=== PATIENT | female | born 1980 | race Caucasian/White ===

== ENCOUNTER → 2021-03-03 11:16 | Outpatient (CLI) | payer OTHER, MEDICAID, SELFPAY ==
[2021-03-03 07:49] VITALS: BMI 32.9
== END ==
PROVIDERS: PCP Internal Medicine; Referring Provider Physician Assistant; Visit Provider Physician Assistant
DX: J02.9 Acute pharyngitis, unspecified (principal)
CPT/HCPCS: 87070

== ENCOUNTER → 2021-03-28 13:48 | Outpatient (CLI) | payer OTHER, SELFPAY ==
[2021-03-28 13:09] VITALS: BMI 34.9
[2021-03-28 14:53] LABS: Free T3 2.3 pg/mL (2.18-3.98); T4 Free Direct 0.88 ng/dL (0.76-1.46); Thyroid Stim Hormone (TSH) 4.87 uIU/mL (0.358-3.74)
[2021-04-01 09:04] LABS: HPV APTIMA, High Risk Negative (Negative)
== END ==
PROVIDERS: PCP Internal Medicine; Referring Provider Obstetrics & Gynecology; Visit Provider Obstetrics & Gynecology
DX: Z12.4 Encounter for screening for malignant neoplasm of cervix (principal); E03.9 Hypothyroidism, unspecified
CPT/HCPCS: 36415; 84439; 84443; 84481; 87624; 88175; G0145

== ENCOUNTER → 2021-04-01 15:23 | Outpatient (CLI) | payer OTHER, SELFPAY ==
[2021-04-01 15:03] VITALS: BMI 34.9
[2021-04-01 16:58] LABS: Absolute Lymphocyte Count 1.77 X10^3/uL (0.83-4.51); Absolute Neutrophil Count 4.5 X10^3/uL (2.0-7.7); Basophil# 0.06 X10^3/uL; Basophil% 0.8 % (0-1); Eosinophil# 0.28 X10^3/uL; Hematocrit 36.4 % (37-47); Lymphocyte # 1.77 X10^3/ul (0.83-4.51); Lymphocyte % 25.1 % (19-41); Mean Corp Hgb Conc 30.2 g/dL (32-36); Mean Corpuscular Hgb 23.5 pg (27.0-32.0); Mean Corpuscular Volume 77.8 fL (81-99); Mean Platelet Vol. 10.8 fl (6.2-12.0); Monocyte# 0.43 X10^3/uL; Monocyte% 6.1 % (0-10); NRBC Flagged by Analyzer 0 % (0-5); Neutrophil % 63.7 % (47-70); Platelet Count 235 K/mm3 (150-450); RBC Distribution Width CV 15.8 % (11.6-14.6); RBC Distribution Width SD 44.6 fl (35.1-43.9); Red Blood Count 4.68 M/mm3 (4.2-5.4); White Blood Count 7.1 K/mm3 (4.4-11.0)
[2021-04-01 17:05] LABS: ALB/GLOB Ratio 0.9 RATIO (0.9-2.4); AST(SGOT) 17 U/L (15-37); Alanine Aminotransfer ALT/SGPT 32 U/L (13-56); Albumin, Serum 3.6 g/dL (3.2-5.0); Alkaline Phosphatase 52 U/L (45-117); Anion Gap 6 (5-15); BUN 10 mg/dL (7-18); BUN/Creat Ratio 12.1 RATIO (10-20); Calcium,Total 8.5 mg/dL (8.5-10.1); Chloride 106 mmol/L (98-107); Cholesterol 200 mg/dL (200); Creatinine, Serum 0.83 mg/dL (0.55-1.02); EST Glomerular Filtration Rate 81 mL/min (>60); Est Glom Filt Rate - Afr Amer 98 mL/min (>60); Globulin 4.1 g/dL (2.2-4.2); Glucose 89 mg/dL (74-106); High Density Lipoprotein 74 mg/dL; Potassium 4.3 mmol/L (3.5-5.1); Protein, Total 7.7 g/dL (6.4-8.2); Sodium Level 138 mmol/L (136-145); Triglycerides 95 mg/dL; Very Low Density Lipoprotein 19 mg/dL (5-40)
[2021-04-05 08:36] LABS: Ferritin 5 ng/mL (8-252); Iron 21 ug/dL (50-170); Iron Binding Capacity,Total 521 ug/dL (250-450)
== END ==
LOC: BIMLAB 15:24
PROVIDERS: PCP Internal Medicine; Referring Provider Internal Medicine; Visit Provider Internal Medicine
DX: I10 Essential (primary) hypertension (principal); D64.9 Anemia, unspecified
CPT/HCPCS: 36415; 80053; 80061; 82728; 83540; 83550; 85025

== ENCOUNTER → 2021-04-08 08:47 | Outpatient (CLI) | payer OTHER, SELFPAY ==
[2021-04-01 15:03] VITALS: BMI 34.9
--- NOTE | 2021-04-08 08:50 | EKG12_ITS ---
Test Reason : HTN Blood Pressure : / mmHG Vent. Rate : 071 BPM Atrial Rate : 071 BPM P-R Int : 152 ms QRS Dur : 094 ms QT Int : 430 ms P-R-T Axes : 043 -20 040 degrees QTc Int : 467 ms Normal sinus rhythm Inferior infarct , age undetermined Abnormal ECG Confirmed by PATSY CLEVELAND, VENANCIO ([id number]), fan mail editor ANDIE KENDALL ([id number]) on 04/11/2021 12:46:28 PM Referred By: Oliver Junior Confirmed By:VENANCIO GARNER MD
--- NOTE | 2021-04-08 09:00 | US_ITS ---
STUDY: THYROID ULTRASOUND REASON FOR EXAM: Female, 40 years old. Thyroid nodule TECHNIQUE: Ultrasound evaluation of the thyroid was performed with real-time and static aguirre-scale imaging. COMPARISON: None. FINDINGS: RIGHT LOBE: The right lobe of the thyroid gland measures 4.9 cm x 2.3 cm x 1.7 cm. There is a heterogeneous echotexture. There are no demonstrated solid, cystic or complex lesions. LEFT LOBE: The left lobe of the thyroid gland measures 4.8 cm x 1.7 cm x 1.2 cm. There is a heterogeneous echotexture. There are no demonstrated solid, cystic or complex lesions. ISTHMUS: The isthmus measures 3.1 mm. The regional lymph nodes are normal. US/Thyroid IMPRESSION: Heterogeneous appearance of the thyroid gland without a localized nodule. Electronically Signed: Tom Marx MD at 13:35 EDT , Service support ,
== END ==
PROVIDERS: PCP Internal Medicine; Referring Provider Internal Medicine; Visit Provider Internal Medicine
DX: E04.1 Nontoxic single thyroid nodule (principal); I10 Essential (primary) hypertension
CPT/HCPCS: 76536; 93005

== ENCOUNTER → 2021-04-11 16:07 | Outpatient (CLI) | payer OTHER, SELFPAY ==
[2021-03-28 13:09] VITALS: BMI 34.9
[2021-04-01 15:03] VITALS: BMI 34.9
--- NOTE | 2021-04-11 16:09 | BI_ITS ---
MAMMOGRAPHY - BILATERAL SCREENING REASON FOR EXAM: Female, 40 years old. Routine annual screening examination. PERTINENT HISTORY: Aunt with breast cancer. TECHNIQUE: Digital bilateral breast juanpablo (3D mammographic acquisition) in the CC and MLO projections. 2-D mediolateral oblique (MLO) and craniocaudad (CC) views of both breasts were obtained. CAD: Full Field Digital Mammography with Computer Added Detection was performed. COMPARISON: None. Baseline examination. FINDINGS: Breast Composition: There are scattered areas of fibroglandular density. There are no dominant masses or suspicious calcifications. There is a 4.4 mm well-defined nodule with a central fatty hilum in the upper lateral portion of the right breast in keeping with a small lymph node. No other significant abnormalities are identified. BI/SCRN MAMM (CAD)W/JUANPABLO BILAT IMPRESSION: Negative screening mammogram. Yearly followup mammogram recommended. (A) ASSESSMENT CATEGORY: BIRADS Category 2: Benign. A letter regarding these results will be sent to the patient by the facility within 30 days. Approximately 10% of breast cancers are not detected by mammography. A normal mammogram should not delay biopsy of a clinically suspicious abnormality. [id number] Electronically Signed: Tom Marx MD at 8:19 EDT , Service support ,
== END ==
PROVIDERS: PCP Internal Medicine; Referring Provider Obstetrics & Gynecology; Visit Provider Obstetrics & Gynecology
DX: Z12.31 Encounter for screening mammogram for malignant neoplasm of breast (principal)
CPT/HCPCS: 77063; 77067

== ENCOUNTER → 2021-04-14 14:52 | Outpatient (CLI) | payer OTHER, SELFPAY ==
[2021-04-14 14:23] VITALS: BMI 34.9
[2021-04-14 16:47] LABS: Anion Gap 7 (5-15); BUN 12 mg/dL (7-18); BUN/Creat Ratio 12.3 RATIO (10-20); Chloride 99 mmol/L (98-107); Creatinine, Serum 0.98 mg/dL (0.55-1.02); EST Glomerular Filtration Rate 67 mL/min (>60); Est Glom Filt Rate - Afr Amer 81 mL/min (>60); Glucose 83 mg/dL (74-106); Potassium 3.4 mmol/L (3.5-5.1); Sodium Level 138 mmol/L (136-145)
== END ==
PROVIDERS: PCP Internal Medicine; Referring Provider Internal Medicine; Visit Provider Internal Medicine
DX: I10 Essential (primary) hypertension (principal)
CPT/HCPCS: 36415; 80048

== ENCOUNTER → 2021-05-02 09:53 | Outpatient (CLI) | payer OTHER, SELFPAY ==
[2021-04-14 14:23] VITALS: BMI 34.9
[2021-04-28 14:16] VITALS: BMI 34.9
--- NOTE | 2021-05-02 13:44 | STRESSREP ---
Stress Test Report Date: 05-02-2021 Procedure: Exercise tolerance test Indications: Abnormal ECG Consent: Per the patient Procedure: The patient exercised on a Tolu protocol for 10 minutes completing Stage III and 1 minute of Stage IV achieving a peak heart rate of 153 bpm (85% predicted maximal heart rate) with a peak blood pressure 198/98 mmHg and a peak MET capacity of approximately 11 MET's. The baseline ECG demonstrated normal sinus rhythm. The peak exercise ECG demonstrated no obvious ECG changes. There were no cardiac dysrhythmias pretest, during exercise, or recovery. The functional capacity was considered good. The patient had no complaint of chest discomfort during exercise or recovery. The examination was discontinued secondary to dyspnea. Impression: 1. Technically adequate (percent predicted maximal heart rate greater than 85%) exercise tolerance test 2. Peak exercise ECG with no obvious ECG change 3. There were no cardiac dysrhythmias during exercise or recovery This note was generated with [employer] software. It may contain incorrect words, spelling, and punctuation that were not noted in checking the note before signing.
== END ==
PROVIDERS: PCP Internal Medicine; Referring Provider Internal Medicine; Visit Provider Internal Medicine
DX: R94.31 Abnormal electrocardiogram [ECG] [EKG] (principal)
CPT/HCPCS: 93017

== ENCOUNTER → 2021-05-27 13:21 | Outpatient (CLI) | payer OTHER, SELFPAY ==
[2021-05-27 15:23] LABS: Absolute Lymphocyte Count 1.71 X10^3/uL (0.83-4.51); Absolute Neutrophil Count 4.6 X10^3/uL (2.0-7.7); Basophil# 0.06 X10^3/uL; Basophil% 0.9 % (0-1); Eosinophil# 0.15 X10^3/uL; Eosinophils% 2.2 % (0-5); Hematocrit 39.9 % (37-47); Hemoglobin 12.4 g/dL (12.0-15.0); Lymphocyte # 1.71 X10^3/ul (0.83-4.51); Lymphocyte % 24.8 % (19-41); Mean Corp Hgb Conc 31.1 g/dL (32-36); Mean Corpuscular Hgb 25.4 pg (27.0-32.0); Mean Corpuscular Volume 81.6 fL (81-99); Mean Platelet Vol. 11.3 fl (6.2-12.0); Monocyte# 0.34 X10^3/uL; Monocyte% 4.9 % (0-10); NRBC Flagged by Analyzer 0 % (0-5); Neutrophil # 4.61 X10^3/uL (2.7-7.7); Neutrophil % 66.9 % (47-70); Platelet Count 230 K/mm3 (150-450); RBC Distribution Width CV 17.6 % (11.6-14.6); Red Blood Count 4.89 M/mm3 (4.2-5.4); White Blood Count 6.9 K/mm3 (4.4-11.0)
[2021-05-27 15:59] LABS: Anion Gap 7 (5-15); BUN 10 mg/dL (7-18); BUN/Creat Ratio 10.7 RATIO (10-20); Calcium,Total 8.8 mg/dL (8.5-10.1); Chloride 104 mmol/L (98-107); Creatinine, Serum 0.94 mg/dL (0.55-1.02); EST Glomerular Filtration Rate 70 mL/min (>60); Est Glom Filt Rate - Afr Amer 85 mL/min (>60); Glucose 96 mg/dL (74-106); Potassium 3.7 mmol/L (3.5-5.1); Sodium Level 137 mmol/L (136-145)
== END ==
PROVIDERS: PCP Internal Medicine; Referring Provider Internal Medicine; Visit Provider Internal Medicine
DX: D64.9 Anemia, unspecified (principal); I10 Essential (primary) hypertension
CPT/HCPCS: 36415; 80048; 85025

== ENCOUNTER → 2021-07-21 10:43 | Outpatient (CLI) | payer OTHER, SELFPAY ==
--- NOTE | 2021-07-21 11:00 | RAD_ITS ---
STUDY: X-RAY - right KNEE REASON FOR EXAM: Female, 40 years old. PAIN AND SWELLING TECHNIQUE: 4 view(s) of the knee. COMPARISON: None. FINDINGS: Normal visualized distal femur. Normal visualized proximal tibia and fibula. Normal proximal tibiofibular articulation. Normal medial femorotibial compartment. Normal lateral femorotibial compartment. Normal patellofemoral articulation. The soft tissue structures are unremarkable. RAD/Knee 4 or More Views IMPRESSION: Normal x-ray examination of the knee. Electronically Signed: Jeronimo Pickett MD at 15:24 EDT , Service support ,
== END ==
PROVIDERS: PCP Internal Medicine; Referring Provider Physician Assistant; Visit Provider Physician Assistant
DX: M25.561 Pain in right knee (principal); M79.89 Other specified soft tissue disorders
CPT/HCPCS: 73564

== ENCOUNTER → 2022-06-08 | Outpatient (CLI) | payer OTHER, SELFPAY ==
[2022-06-08 12:17] LABS: Absolute Lymphocyte Count 1.79 X10^3/uL (0.83-4.51); Absolute Neutrophil Count 3.8 X10^3/uL (2.0-7.7); Basophil# 0.06 X10^3/uL; Eosinophil# 0.17 X10^3/uL; Eosinophils% 2.8 % (0-5); Hematocrit 42.4 % (37-47); Lymphocyte # 1.79 X10^3/ul (0.83-4.51); Lymphocyte % 29.3 % (19-41); Mean Platelet Vol. 11.8 fl (6.2-12.0); Monocyte% 4.9 % (0-10); NRBC Flagged by Analyzer 0 % (0-5); Neutrophil # 3.77 X10^3/uL (2.7-7.7); Neutrophil % 61.7 % (47-70); Platelet Count 200 K/mm3 (150-450); RBC Distribution Width CV 13.4 % (11.6-14.6); RBC Distribution Width SD 43.2 fl (35.1-43.9); Red Blood Count 4.82 M/mm3 (4.2-5.4); White Blood Count 6.1 K/mm3 (4.4-11.0)
[2022-06-08 12:26] LABS: ALB/GLOB Ratio 0.9 RATIO (0.9-2.4); AST(SGOT) 24 U/L (15-37); Alanine Aminotransfer ALT/SGPT 38 U/L (13-56); Albumin, Serum 3.6 g/dL (3.2-5.0); Alkaline Phosphatase 45 U/L (45-117); Anion Gap 5 (5-15); BUN 15 mg/dL (7-18); BUN/Creat Ratio 15.9 RATIO (10-20); Chloride 102 mmol/L (98-107); Cholesterol 206 mg/dL (200); Creatinine, Serum 0.94 mg/dL (0.55-1.02); EST Glomerular Filtration Rate 69 mL/min (>60); Est Glom Filt Rate - Afr Amer 83 mL/min (>60); Globulin 4.2 g/dL (2.2-4.2); Glucose 88 mg/dL (74-106); High Density Lipoprotein 68 mg/dL; Protein, Total 7.8 g/dL (6.4-8.2); Sodium Level 136 mmol/L (136-145); Triglycerides 96 mg/dL; Very Low Density Lipoprotein 19 mg/dL (5-40)
== END | disposition home or self-care (01) ==
LOC: BIMLAB 08:04
PROVIDERS: PCP Internal Medicine; Referring Provider Internal Medicine; Visit Provider Internal Medicine
DX: I10 Essential (primary) hypertension (principal)
CPT/HCPCS: 36415; 80053; 80061; 85025

== ENCOUNTER → 2022-06-30 | Outpatient (CLI) | payer OTHER, SELFPAY ==
[2022-06-30 12:35] LABS: T4 Free Direct 0.87 ng/dL (0.76-1.46); Thyroid Stim Hormone (TSH) 6.89 uIU/mL (0.358-3.74)
== END | disposition home or self-care (01) ==
LOC: BIMLAB 09:38
PROVIDERS: PCP Internal Medicine; Referring Provider Nurse Practitioner Family; Visit Provider Nurse Practitioner Family
DX: E03.9 Hypothyroidism, unspecified (principal)
CPT/HCPCS: 36415; 84439; 84443

== ENCOUNTER → 2022-09-28 | Outpatient (CLI) | payer OTHER, SELFPAY ==
[2022-09-28 12:46] LABS: Thyroid Stim Hormone (TSH) 4.82 uIU/mL (0.358-3.74)
== END | disposition home or self-care (01) ==
LOC: BIMLAB 09:57
PROVIDERS: PCP Internal Medicine; Referring Provider Nurse Practitioner Family; Visit Provider Nurse Practitioner Family
DX: E03.9 Hypothyroidism, unspecified (principal)
CPT/HCPCS: 36415; 84443

== ENCOUNTER → 2022-11-23 | Outpatient (CLI) | payer OTHER, SELFPAY ==
[2022-11-23 12:32] LABS: Vitamin B12 528 pg/mL (211-911); Vitamin D,25 Hydroxy 20.4 ng/mL
[2022-11-23 13:36] LABS: Follicle Stimulating Hormone 3.2 mIU/mL; Luteinizing Hormone 3.2 mIU/mL
[2022-11-30 23:14] LABS: Estrogen, Total, Serum 285 pg/mL (.)
== END | disposition home or self-care (01) ==
LOC: BIMLAB 09:44
PROVIDERS: PCP Internal Medicine; Referring Provider Nurse Practitioner Family; Visit Provider Nurse Practitioner Family
DX: N92.6 Irregular menstruation, unspecified (principal); E03.9 Hypothyroidism, unspecified; E56.9 Vitamin deficiency, unspecified
CPT/HCPCS: 36415; 82306; 82607; 82672; 83001; 83002; 84443

== ENCOUNTER → 2023-02-27 | Outpatient (CLI) | payer OTHER, SELFPAY ==
[2023-02-27 13:22] LABS: Thyroid Stim Hormone (TSH) 4.74 uIU/mL (0.358-3.74)
== END | disposition home or self-care (01) ==
LOC: BIMLAB 08:32
PROVIDERS: PCP Internal Medicine; Referring Provider Nurse Practitioner Family; Visit Provider Nurse Practitioner Family
DX: E03.9 Hypothyroidism, unspecified (principal)
CPT/HCPCS: 36415; 84443

== ENCOUNTER → 2023-07-26 | Outpatient (CLI) | payer OTHER, SELFPAY ==
[2023-07-31 08:11] LABS: Chlamydia By Nucleic Acid AMP Negative (Negative); Gonococcus By Nucleic Acid AMP Negative (Negative)
== END | disposition home or self-care (01) ==
PROVIDERS: PCP Internal Medicine; Referring Provider Nurse Practitioner Women's Health; Visit Provider Nurse Practitioner Women's Health
DX: Z11.3 Encounter for screening for infections with a predominantly sexual mode of transmission (principal)
CPT/HCPCS: 87491; 87591

== ENCOUNTER → 2023-08-03 | Outpatient (CLI) | payer OTHER, SELFPAY ==
--- NOTE | 2023-08-03 08:33 | BI_ITS ---
MAMMOGRAPHY - BILATERAL SCREENING REASON FOR EXAM: Female, 42 years old. Routine annual screening examination. PERTINENT HISTORY: Aunt with breast cancer. TECHNIQUE: Digital bilateral breast juanpablo (3D mammographic acquisition) in the CC and MLO projections. 2-D mediolateral oblique (MLO) and craniocaudad (CC) views of both breasts were obtained. CAD: Full Field Digital Mammography with Computer Added Detection was performed. COMPARISON: Comparison is made with prior study dated April 11, 2021. FINDINGS: Breast Composition: There are scattered areas of fibroglandular density. There are no dominant masses or suspicious calcifications. Stable 4.4 mm well-defined nodule in the upper lateral aspect of the right breast suggestive of a small lymph node. No other significant abnormalities are identified. There has been no significant change since the prior study. BI/SCRN MAMM (CAD)W/JUANPABLO BILAT IMPRESSION: Stable bilateral screening mammogram. Yearly follow-up mammogram recommended. (A) ASSESSMENT CATEGORY: BIRADS Category 2: Benign. A letter regarding these results will be sent to the patient by the facility within 30 days. Approximately 10% of breast cancers are not detected by mammography. A normal mammogram should not delay biopsy of a clinically suspicious abnormality. [id number] Electronically Signed: Tom Marx MD at 9:40 EDT ,
== END | disposition home or self-care (01) ==
PROVIDERS: PCP Internal Medicine; Referring Provider Nurse Practitioner Women's Health; Visit Provider Nurse Practitioner Women's Health
DX: Z12.31 Encounter for screening mammogram for malignant neoplasm of breast (principal); Z80.3 Family history of malignant neoplasm of breast
CPT/HCPCS: 77063; 77067

== ENCOUNTER → 2023-08-08 | Outpatient (CLI) | payer OTHER, SELFPAY ==
--- NOTE | 2023-08-08 11:25 | RAD_ITS ---
EXAM: XR CHEST, 2 VIEWS CLINICAL INDICATION: cough for more than 3 weeks TECHNIQUE: Frontal and lateral views of the chest. COMPARISON: 02/04/2015 FINDINGS: LUNGS AND PLEURAL SPACES: There is airspace disease in the right middle lobe compatible with pneumonia. No pneumothorax. No effusion. HEART: Unremarkable. Cardiac silhouette not enlarged. MEDIASTINUM: Central airways and mediastinal contour are unremarkable. BONES/JOINTS: Unremarkable. SOFT TISSUES: Unremarkable. RAD/Chest PA and Lateral IMPRESSION: Right middle lobe pneumonia. Electronically Signed: Sung Marti MD at 23:49 EST ,
== END | disposition home or self-care (01) ==
PROVIDERS: PCP Internal Medicine; Referring Provider Internal Medicine; Visit Provider Internal Medicine
DX: R05.8 Other specified cough (principal); J02.9 Acute pharyngitis, unspecified; R51.9 Headache, unspecified; J18.9 Pneumonia, unspecified organism
CPT/HCPCS: 71046; 87633

== ENCOUNTER → 2023-09-10 | Outpatient (CLI) | payer OTHER, SELFPAY ==
[2023-09-10 16:22] LABS: Absolute Lymphocyte Count 1.67 X10^3/uL (0.83-4.51); Absolute Neutrophil Count 4.1 X10^3/uL (2.0-7.7); Basophil# 0.07 X10^3/uL; Basophil% 1.1 % (0-1); Eosinophils% 7.5 % (0-5); Hematocrit 40.9 % (37-47); Lymphocyte # 1.67 X10^3/ul (0.83-4.51); Lymphocyte % 25.1 % (19-41); Mean Corp Hgb Conc 34.2 g/dL (32-36); Mean Corpuscular Hgb 30.6 pg (27.0-32.0); Mean Corpuscular Volume 89.5 fL (81-99); Mean Platelet Vol. 10.7 fl (6.2-12.0); Monocyte# 0.27 X10^3/uL; Monocyte% 4.1 % (0-10); NRBC Flagged by Analyzer 0 % (0-5); Neutrophil # 4.13 X10^3/uL (2.7-7.7); Platelet Count 232 K/mm3 (150-450); RBC Distribution Width CV 12.2 % (11.6-14.6); RBC Distribution Width SD 39.8 fl (35.1-43.9); Red Blood Count 4.57 M/mm3 (4.2-5.4); White Blood Count 6.7 K/mm3 (4.4-11.0)
[2023-09-10 17:15] LABS: ALB/GLOB Ratio 0.9 RATIO (0.9-2.4); AST(SGOT) 24 U/L (15-37); Alanine Aminotransfer ALT/SGPT 42 U/L (13-56); Albumin, Serum 3.5 g/dL (3.2-5.0); Alkaline Phosphatase 43 U/L (45-117); Anion Gap 6 (5-15); BUN 12 mg/dL (7-18); BUN/Creat Ratio 13.3 RATIO (10-20); Calcium,Total 8.8 mg/dL (8.5-10.1); Chloride 107 mmol/L (98-107); Cholesterol 216 mg/dL (200); EST Glomerular Filtration Rate 72 mL/min (>60); Est Glom Filt Rate - Afr Amer 88 mL/min (>60); Glucose 98 mg/dL (74-106); High Density Lipoprotein 68 mg/dL; Potassium 3.9 mmol/L (3.5-5.1); Protein, Total 7.5 g/dL (6.4-8.2); Sodium Level 140 mmol/L (136-145); Thyroid Stim Hormone (TSH) 3.42 uIU/mL (0.358-3.74); Triglycerides 133 mg/dL; Very Low Density Lipoprotein 27 mg/dL (5-40)
== END | disposition home or self-care (01) ==
LOC: BIMLAB 14:39
PROVIDERS: PCP Internal Medicine; Referring Provider Internal Medicine; Visit Provider Internal Medicine
DX: I10 Essential (primary) hypertension (principal); E03.9 Hypothyroidism, unspecified
CPT/HCPCS: 36415; 80053; 80061; 84443; 85025

== ENCOUNTER → 2024-01-11 | Outpatient (CLI) | payer OTHER, SELFPAY ==
[2024-01-11 12:22] LABS: Absolute Lymphocyte Count 1.68 X10^3/uL (0.83-4.51); Absolute Neutrophil Count 5.5 X10^3/uL (2.0-7.7); Basophil# 0.08 X10^3/uL; Eosinophil# 0.53 X10^3/uL; Eosinophils% 6.6 % (0-5); Hematocrit 43.3 % (37-47); Hemoglobin 14.4 g/dL (12.0-15.0); Lymphocyte # 1.68 X10^3/ul (0.83-4.51); Lymphocyte % 20.9 % (19-41); Mean Corp Hgb Conc 33.3 g/dL (32-36); Mean Corpuscular Hgb 29.7 pg (27.0-32.0); Mean Corpuscular Volume 89.3 fL (81-99); Mean Platelet Vol. 11.2 fl (6.2-12.0); Monocyte# 0.24 X10^3/uL; NRBC Flagged by Analyzer 0 % (0-5); Neutrophil # 5.47 X10^3/uL (2.7-7.7); Neutrophil % 68.3 % (47-70); Platelet Count 217 K/mm3 (150-450); RBC Distribution Width CV 12.9 % (11.6-14.6); RBC Distribution Width SD 41.7 fl (35.1-43.9); Red Blood Count 4.85 M/mm3 (4.2-5.4)
[2024-01-11 13:03] LABS: ALB/GLOB Ratio 0.9 RATIO (0.9-2.4); AST(SGOT) 19 U/L (15-37); Alanine Aminotransfer ALT/SGPT 28 U/L (13-56); Albumin, Serum 3.7 g/dL (3.2-5.0); Alkaline Phosphatase 40 U/L (45-117); Anion Gap 3 (5-15); BUN 11 mg/dL (7-18); BUN/Creat Ratio 12.9 RATIO (10-20); Calcium,Total 9.1 mg/dL (8.5-10.1); Chloride 108 mmol/L (98-107); Creatinine, Serum 0.85 mg/dL (0.55-1.02); EST Glomerular Filtration Rate 77 mL/min (>60); Est Glom Filt Rate - Afr Amer 93 mL/min (>60); Glucose 85 mg/dL (74-106); Potassium 4.1 mmol/L (3.5-5.1); Protein, Total 7.7 g/dL (6.4-8.2); Sodium Level 138 mmol/L (136-145)
== END | disposition home or self-care (01) ==
LOC: BIMLAB 09:57
PROVIDERS: PCP Internal Medicine; Referring Provider Internal Medicine; Visit Provider Internal Medicine
DX: K21.9 Gastro-esophageal reflux disease without esophagitis (principal)
CPT/HCPCS: 36415; 80053; 85025

== ENCOUNTER → 2024-05-08 | Outpatient (CLI) | payer OTHER, SELFPAY ==
[2024-05-08 12:42] LABS: AST(SGOT) 15 U/L (15-37); Alanine Aminotransfer ALT/SGPT 22 U/L (13-56); Albumin, Serum 3.7 g/dL (3.2-5.0); Alkaline Phosphatase 44 U/L (45-117); Anion Gap 4 (5-15); BUN 9 mg/dL (7-18); BUN/Creat Ratio 11.1 RATIO (10-20); Calcium,Total 8.8 mg/dL (8.5-10.1); Chloride 106 mmol/L (98-107); Creatinine, Serum 0.81 mg/dL (0.55-1.02); EST Glomerular Filtration Rate 82 mL/min (>60); Est Glom Filt Rate - Afr Amer 99 mL/min (>60); Globulin 3.8 g/dL (2.2-4.2); Glucose 83 mg/dL (74-106); Potassium 4.2 mmol/L (3.5-5.1); Protein, Total 7.5 g/dL (6.4-8.2); Sodium Level 137 mmol/L (136-145); T4 Free Direct 1.21 ng/dL (0.76-1.46); Thyroid Stim Hormone (TSH) 3.34 uIU/mL (0.358-3.74)
== END | disposition home or self-care (01) ==
LOC: BIMLAB 08:44
PROVIDERS: PCP Internal Medicine; Referring Provider Nurse Practitioner; Visit Provider Nurse Practitioner
DX: E03.9 Hypothyroidism, unspecified (principal); I10 Essential (primary) hypertension
CPT/HCPCS: 36415; 80053; 84439; 84443

== ENCOUNTER → 2024-08-12 | Outpatient (CLI) | payer OTHER, SELFPAY | END | disposition home or self-care (01) | LOC: OPBI 12:04 | PROVIDERS: PCP Internal Medicine; Referring Provider Nurse Practitioner; Visit Provider Nurse Practitioner | DX: Z12.31 Encounter for screening mammogram for malignant neoplasm of breast (principal) | CPT/HCPCS: 77063; 77067 ==

== ENCOUNTER → 2024-11-06 | Outpatient (CLI) | payer OTHER, SELFPAY ==
[2024-11-06 13:12] LABS: ALB/GLOB Ratio 0.9 RATIO (0.9-2.4); AST(SGOT) 14 U/L (15-37); Alanine Aminotransfer ALT/SGPT 21 U/L (13-56); Albumin, Serum 3.6 g/dL (3.2-5.0); Alkaline Phosphatase 42 U/L (45-117); Anion Gap 4 (5-15); BUN 12 mg/dL (7-18); BUN/Creat Ratio 14.5 RATIO (10-20); Calcium,Total 8.6 mg/dL (8.5-10.1); Chloride 106 mmol/L (98-107); Cholesterol 222 mg/dL (200); Creatinine, Serum 0.83 mg/dL (0.55-1.02); EST Glomerular Filtration Rate 79 mL/min (>60); Est Glom Filt Rate - Afr Amer 96 mL/min (>60); Estradiol 146.3 pg/mL; Follicle Stimulating Hormone 3.3 mIU/mL; Globulin 3.9 g/dL (2.2-4.2); Glucose 81 mg/dL (74-106); High Density Lipoprotein 79 mg/dL; Luteinizing Hormone 4.6 mIU/mL; Potassium 3.7 mmol/L (3.5-5.1); Protein, Total 7.5 g/dL (6.4-8.2); Sodium Level 137 mmol/L (136-145); T4 Free Direct 1.16 ng/dL (0.76-1.46); Triglycerides 60 mg/dL; Very Low Density Lipoprotein 12 mg/dL (5-40)
[2024-11-06 16:43] LABS: Hemoglobin A1c 4.2 % (3.8-5.6)
[2024-11-11 15:07] LABS: Sex Hormone-binding Globulin 63.2 nmol/L (24.6-122.0); Testosterone, % Free 2.28 % (0.50-2.80); Testosterone, Free 0.64 ng/dL (0.10-0.85); Testosterone, Total 28 ng/dL (4-50)
== END | disposition home or self-care (01) ==
LOC: LAB 10:30
PROVIDERS: PCP Internal Medicine; Referring Provider Registered Nurse; Visit Provider Registered Nurse
DX: R53.83 Other fatigue (principal); M62.81 Muscle weakness (generalized); R68.82 Decreased libido; R63.5 Abnormal weight gain; R35.0 Frequency of micturition; R39.16 Straining to void
CPT/HCPCS: 36415; 80053; 80061; 82627; 82670; 83001; 83002; 83036; 84146; 84270; 84402; 84403; 84439; 84443; 82626

== ENCOUNTER 2024-12-26 10:44 | Day surgery (SDC) | payer OTHER, SELFPAY ==
--- NOTE | 2024-12-22 20:16 | PAT.ANE_ITS ---
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 When Was Last Pacemaker Check QUESTION #4 FULL TEXT: You/Your Family Experience fever (hyperthermia) with Anesthesia Last Oral Intake Last Oral intake: Last Oral Intake NPO since Meds taken in AM with sips of water? 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 Female Yes 12/22/24 15:50 HX of Motion Sickness Yes 12/22/24 15:50 HX of N/V After Surgery Yes 12/22/24 15:50 Non-Smoker Yes 12/22/24 15:50 Duration of Surgery greater No 12/22/24 15:50 than 60 minutes Number of Risk Factors 4 12/22/24 15:50 PONV Score Severe Risk 12/22/24 15:50 Height & Weight Height & Weight: Anesthesia: Height & Weight Height 5 ft 3 in 10/22/24 11:16 Respiratory Assessment Respiratory Assessment - cement boat and barge loader: Respiratory Tract Infection Hx - cement boat and barge loader Hx Respiratory Tract Infection No 12/22/24 15:50 STOP Sleep Apnea STOP Sleep Apnea - cement boat and barge loader: STOP Sleep Apnea - cement boat and barge loader Hx Hypertension Yes 12/22/24 15:50 Hx Sleep Apnea No 12/22/24 15:50 CPAP BIPAP Do you snore loudly (louder No 12/22/24 15:50 than talking or can be heard Do you often feel tired/ No 12/22/24 15:50 fatigued/ sleepy during daytime? Has anyone observed you stop No 12/22/24 15:50 breathing during sleep? STOP Results Negative 12/22/24 15:50 QUESTION #5 FULL TEXT : Do you snore loudly (louder than talking or can be heard through closed doors)? 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 Specify any problems Hx of Preganancy in last 3 No 12/22/24 15:50 Months Nurse Filling Out Transfusion JZOLLINGE 12/22/24 15:50 & Questions: Date: 12/22/24 12/22/24 15:50 Time: 15:54 12/22/24 15:50 Patient unable to answer at this time (ie. confused, unrespo /Reproduction History /Reproductive History - cement boat and barge loader: /Reproductive Hx- cement boat and barge loader Hx Now No 12/22/24 15:50 Gestational Age (in weeks): EDC: Hx Hx Para Hx Section SAB No 12/22/24 15:50 PFSH Medical History (Updated 12/22/24 @ 15:50 by Lizbet Salter) Wears contact lenses Alcohol use Thyroid disease Migraine headache Dietary restriction Heartburn Former smoker Colon cancer screening Preventative health care Multiple allergies GERD (gastroesophageal reflux disease) Cough Irregular menses Vitamin deficiency Anxiety and depression Acne Lymphadenopathy of head and neck region Obesity (BMI 30-39.9) Abnormal EKG Anemia Thyroid nodule Hypersomnolence Hypertension Home Medications ?Medication ?Instructions ?Recorded ?Last Taken ?Type L.acidoph,paracasei,B.animalis 10 1 cell PO 04/01/21 U nknown History billion cell capsule (Digestive Advantage Advanced Probiotic) adapalene 0.1 % topical gel 1 applic topical QHS #45 g jimmy 02/15/22 Unknown Rx amlodipine 10 mg tablet 10 mg PO DAILY #90 tabs 01/31 Unknown Rx valsartan 320 mg tablet 320 mg PO DAILY #90 tabs Unknown Rx clindamycin phosphate 1 % topical 1 applic topical QAM AND QHS #60 06/09/24 Unknown Rx gel grams hydrochlorothiazide 25 mg tablet 25 mg PO QAM #90 tabs 06/10/24 Unknown Rx levothyroxine 88 mcg tablet 88 mcg PO DAILY #90 tabs 1 10/18/23 Unknown Rx omeprazole 40 mg capsule,delayed 40 mg PO DAILY #90 ca ps 10/06/24 Unknown Rx release cholecalciferol (vitamin D3) 50 50 mcg PO QDAY 5 Unknown History mcg (2,000 unit) capsule multivitamin 1 tab PO QDAY 10/22/24 Unkno wn History semaglutide 0.25 mg or 0.5 mg (2 0.25 mg subcut QWEEK 10/22/24 12/15/24 History mg/1.5 mL) subcutaneous pen injector turmeric 400 mg capsule 400 mg PO QDAY 10/22/24 Unkn own History Allergy/AdvReac Type Severity Reaction Status Date / Time Fish Containing Products Allergy Severe THROAT Verified 12/22/24 15:37 SWELLING shellfish derived Allergy Severe THROAT Verified 12/22/24 15:37 SWELLING Egg Derived Allergy Unknown Verified 12/22/24 15:37 milk (dairy) Allergy Throat Verified 12/22/24 15:37 issues, GERD Family History (Updated 10/22/24 @ 10:56 by Korin Merrill) Father Hypertension Thyroid disorder Colon polyps Grandfather Lung cancer Grandmother Cancer Mother Colon polyps Surgical History S/P wisdom tooth extraction S/P Social History (Updated 10/22/24 @ 10:56 by Korin Merrill) household members: spouse current occupational status: employed Smoking Status: Never smoker alcohol intake: never substance use type: does not use caffeine: Yes what type of physical activity do you participate in: aerobics and weight training frequency: 3-4 times per week seatbelt use: always do you feel safe at home: Yes additional social history: Woody Audit: Pertinent Findings Pertinent Findings EKG Perinent findings: April 08, 2021. Normal sinus rhythm. Inferior infarct, age undetermined. Stress test pertinent findings: May 02, 2021. Patient achieved a peak met capacity of 11 METS. Peak exercise ECG with no obvious ECG change. Recommendation Anesthesia Recommendation Anesthesia recommendation: OPTIMIZED for anesthesia
--- NOTE | 2024-12-26 11:15 | PCM.PRE.AN2 ---
ASA Classification* ASA Classification ASA Classification: 2 Assessment & Plan Anesthesia* Anesthesia Assessment Anesthesia Assessment: Discussed sedation and/or anesthesia options, risks, benefits, and alternatives with patient/parents/legal guardian/POA. Questions invited. The patient/parents/legal guardian/POA seems to understand and agrees to proceed with anesthesia plan. Reviewed the physical assessment, medical history, allergy history and patient home medications list prior to surgery/procedure/anesthetic and documented any changes. Performed airway and anesthesia risk assessments. Anesthesia Type Anesthesia Type: MAC Anesthesia Focused Assessment* Airway Assessment Mouth opens: >3 cm Mallampati Score: II Focused Labs Anesthesia Preop lab: CBC WBC 8.0 K/mm3 (4.4-11.0) 01/11/24 09:57 01/11/24 RBC 4.85 M/mm3 (4.2-5.4) 01/11/24 09:57 01/11/24 Hgb 14.4 g/dL (12.0-15.0) 01/11/24 09:57 01/11/24 Hct 43.3 % (37-47) 01/11/24 09:57 01/11/24 Plt Count 217 K/mm3 (150-450) 01/11/24 09:57 01/11/24 CHEMISTRY Potassium 3.7 mmol/L (3.5-5.1) 11/06/24 10:36 11/06/24 Sodium 137 mmol/L (136-145) 11/06/24 10:36 11/06/24 BUN 12 mg/dL (7-18) 11/06/24 10:36 11/06/24 Creatinine 0.83 mg/dL (0.55-1.02) 11/06/24 10:36 11/06/24 Glucose 81 mg/dL (74-106) 11/06/24 10:36 11/06/24 TSH 5.290 uIU/mL (0.358-3.740) H 11/06/24 10:36 11/06/24 COAG Urine Test Pending 12/26/24 11:00 12/26/24 Pre-Assessment Diagnosis/Proposed Procedure Planned Operative Procedure(s): Colonoscopy - Open Access Anesthesia History 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 When Was Last Pacemaker Check QUESTION #4 FULL TEXT: You/Your Family Experience fever (hyperthermia) with Anesthesia Last Oral Intake Last Oral intake: Last Oral Intake NPO since Meds taken in AM with sips of water? Meds patient instructed to take am of surgery PONV PONV - net applications developer: PONV - net applications developer Female Yes 12/22/24 15:50 HX of Motion Sickness Yes 12/22/24 15:50 HX of N/V After Surgery Yes 12/22/24 15:50 Non-Smoker Yes 12/22/24 15:50 Duration of Surgery greater No 12/22/24 15:50 than 60 minutes Number of Risk Factors 4 12/22/24 15:50 PONV Score Severe Risk 12/22/24 15:50 Height & Weight Height & Weight: Anesthesia: Height & Weight Height 5 ft 3 in 10/22/24 11:16 Respiratory Assessment Respiratory Assessment - net applications developer: Respiratory Tract Infection Hx - net applications developer Hx Respiratory Tract Infection No 12/22/24 15:50 STOP Sleep Apnea STOP Sleep Apnea - net applications developer: STOP Sleep Apnea - net applications developer Hx Hypertension Yes 12/22/24 15:50 Hx Sleep Apnea No 12/22/24 15:50 CPAP BIPAP Do you snore loudly (louder No 12/22/24 15:50 than talking or can be heard Do you often feel tired/ No 12/22/24 15:50 fatigued/ sleepy during daytime? Has anyone observed you stop No 12/22/24 15:50 breathing during sleep? STOP Results Negative 12/22/24 15:50 QUESTION #5 FULL TEXT : Do you snore loudly (louder than talking or can be heard through closed doors)? 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 Specify any problems Hx of Preganancy in last 3 No 12/22/24 15:50 Months Nurse Filling Out Transfusion JZOLLINGE 12/22/24 15:50 & Questions: Date: 12/22/24 12/22/24 15:50 Time: 15:54 12/22/24 15:50 Patient unable to answer at this time (ie. confused, unrespo /Reproduction History /Reproductive History - net applications developer: /Reproductive Hx- net applications developer Hx Now No 12/22/24 15:50 Gestational Age (in weeks): EDC: Hx Hx Para Hx Section SAB No 12/22/24 15:50 PFSH Medical History Wears contact lenses Alcohol use Thyroid disease Migraine headache Dietary restriction Heartburn Former smoker Colon cancer screening Preventative health care Multiple allergies GERD (gastroesophageal reflux disease) Cough Irregular menses Vitamin deficiency Anxiety and depression Acne Lymphadenopathy of head and neck region Obesity (BMI 30-39.9) Abnormal EKG Anemia Thyroid nodule Hypersomnolence Hypertension Home Medications ?Medication ?Instructions ?Recorded ?Last Taken ?Type L.acidoph,paracasei,B.animalis 10 1 cell PO 04/01/21 Unknown History billion cell capsule (Digestive Advantage Advanced Probiotic) adapalene 0.1 % topical gel 1 applic topical QHS #45 grams 02/15/22 Unknown Rx amlodipine 10 mg tablet 10 mg PO DAILY #90 tabs 02/27/23 Unknown Rx valsartan 320 mg tablet 320 mg PO DAILY #90 tabs 02/27/23 Unknown Rx clindamycin phosphate 1 % topical 1 applic topical QAM AND QHS #60 06/09/24 Unknown Rx gel grams hydrochlorothiazide 25 mg tablet 25 mg PO QAM #90 tabs 09/10/24 Unknown Rx levothyroxine 88 mcg tablet 88 mcg PO DAILY #90 tabs 08/18/24 Unknown Rx omeprazole 40 mg capsule,delayed 40 mg PO DAILY #90 caps 10/06/24 Unknown Rx release cholecalciferol (vitamin D3) 50 50 mcg PO QDAY 10/22/24 Unknown History mcg (2,000 unit) capsule multivitamin 1 tab PO QDAY 10/22/24 Unknown History semaglutide 0.25 mg or 0.5 mg (2 0.25 mg subcut QWEEK 10/22/24 12/15/24 History mg/1.5 mL) subcutaneous pen injector turmeric 400 mg capsule 400 mg PO QDAY 10/22/24 Unknown History Allergy/AdvReac Type Severity Reaction Status Date / Time Fish Containing Products Allergy Severe THROAT Verified 12/22/24 15:37 SWELLING shellfish derived Allergy Severe THROAT Verified 12/22/24 15:37 SWELLING Egg Derived Allergy Unknown Verified 12/22/24 15:37 milk (dairy) Allergy Throat Verified 12/22/24 15:37 issues, GERD Family History Father Hypertension Thyroid disorder Colon polyps Grandfather Lung cancer Grandmother Cancer Mother Colon polyps Surgical History S/P wisdom tooth extraction S/P Social History household members: spouse current occupational status: employed Smoking Status: Never smoker alcohol intake: never substance use type: does not use caffeine: Yes what type of physical activity do you participate in: aerobics and weight training frequency: 3-4 times per week seatbelt use: always do you feel safe at home: Yes additional social history: Woody Review of Systems (Anesthesia) ROS Narrative System reviewed and no additional complaints, except as documented.
[2024-12-26 11:17] LABS: Internal QC Validated? YES +Cl - CLEAR BKGD; Pregnancy, Urine Negative Negative
[2024-12-26 11:22] VITALS: BP 152/104; PULSE 81; RESP 16; TEMP 36.9; O2SAT 100; BMI 33.3
--- NOTE | 2024-12-26 12:00 | COLBX_PTH ---
PATIENT: ZULEYMA SPARROW LOC: EN U#:[id number] AGE/SX: 44/F ROOM: RE12/26/[address]: Dr. Jairon Vanegas DO : 1980 BED: DIS: 12/26/2024 SPEC #: [id number] RECD: 12/26/24 17:05 STATUS: ANA REQ #: [id number] SARA: 12/26/24 12:[address]: Jairon Vanegas DEPT: SURGICAL PATHOLOGY RECD BY: Kandi Carrasco ENTERED: 12/29/24 07:57 SP TYPE: COLON BX CONI DR: Dr. Oliver Junior MD Tissues: Descending colon Procedures: Surgery Specimen Level IV HEADER OPERATION: Colonoscopy with biopsy PRE-OP DIAGNOSIS: Colon cancer screening TISSUE SUBMITTED: A- Descending colon polyp biopsy MICROSCOPIC DIAGNOSIS A. Descending colon, polyp, biopsy: * Hyperplastic polyp. MICROSCOPIC DESCRIPTION Slides are reviewed. GROSS DESCRIPTION A. Received in formalin in a container labeled with the patient's name, date of , and descending colon polyp BX is a 0.4 x 0.3 x 0.1 cm ferrer-pink fragment of mucosal tissue. Entirely submitted in A1. B 12-29-2024 CPT:37673
--- NOTE | 2024-12-26 12:14 | PCM.HP.STD ---
HPI - General General Date of Admission: 12/26/24 Date of Service: 12/26/24 Chief Complaint: Screening colonoscopy HPI Narrative ZULEYMA SPARROW, is a 44 F who presents for screening colonoscopy. She has never had a colonoscopy in the past. Her parents do have history of polyps but no history of colon cancer. [facility] Medical History Wears contact lenses Alcohol use Thyroid disease Migraine headache Dietary restriction Heartburn Former smoker Colon cancer screening Preventative health care Multiple allergies GERD (gastroesophageal reflux disease) Cough Irregular menses Vitamin deficiency Anxiety and depression Acne Lymphadenopathy of head and neck region Obesity (BMI 30-39.9) Abnormal EKG Anemia Thyroid nodule Hypersomnolence Hypertension Home Medications ?Medication ?Instructions ?Recorded ?Last Taken ?Type L.acidoph,paracasei,B.animalis 10 1 cell PO 04/01/21 Unknown History billion cell capsule (Digestive Advantage Advanced Probiotic) adapalene 0.1 % topical gel 1 applic topical QHS #45 grams 02/15/22 Unknown Rx amlodipine 10 mg tablet 10 mg PO DAILY #90 tabs 02/27/23 12/25/24 Rx valsartan 320 mg tablet 320 mg PO DAILY #90 tabs 02/27/23 12/25/24 Rx clindamycin phosphate 1 % topical 1 applic topical QAM AND QHS #60 06/09/24 Unknown Rx gel grams hydrochlorothiazide 25 mg tablet 25 mg PO QAM #90 tabs 06/10/24 12/25/24 Rx levothyroxine 88 mcg tablet 88 mcg PO DAILY #90 tabs 08/18/24 12/25/24 Rx omeprazole 40 mg capsule,delayed 40 mg PO DAILY #90 caps 10/06/24 Unknown Rx release cholecalciferol (vitamin D3) 50 50 mcg PO QDAY 10/22/24 Unknown History mcg (2,000 unit) capsule multivitamin 1 tab PO QDAY 10/22/24 Unknown History semaglutide 0.25 mg or 0.5 mg (2 0.25 mg subcut QWEEK 10/22/24 12/15/24 History mg/1.5 mL) subcutaneous pen injector turmeric 400 mg capsule 400 mg PO QDAY 10/22/24 Unknown History Allergy/AdvReac Type Severity Reaction Status Date / Time Fish Containing Products Allergy Severe THROAT Verified 12/26/24 11:19 SWELLING shellfish derived Allergy Severe THROAT Verified 12/26/24 11:19 SWELLING Egg Derived Allergy Unknown Verified 12/26/24 11:19 milk (dairy) Allergy Throat Verified 12/26/24 11:19 issues, GERD Family History Father Hypertension Thyroid disorder Colon polyps Grandfather Lung cancer Grandmother Cancer Mother Colon polyps Surgical History S/P wisdom tooth extraction S/P Social History household members: spouse current occupational status: employed Smoking Status: Never smoker alcohol intake: never substance use type: does not use caffeine: Yes what type of physical activity do you participate in: aerobics and weight training frequency: 3-4 times per week seatbelt use: always do you feel safe at home: Yes additional social history: Woody SANTOS Constitutional Constitutional: Denies fatigue, fever(s), poor appetite, weight gain or weight loss Gastrointestinal Gastrointestinal: Denies belching, bloating, change in bowel habits, change in stool character, chewing difficulty, coffee ground emesis, constipation, cramping, diarrhea, dyspepsia, dysphagia, early satiety, excessive flatus, fecal incontinence, heartburn, hematemesis, hematochezia, hemorrhoids, loose stools, melena, nausea, odynophagia, rectal bleeding, tenesmus, vomiting or weight changes Vital Signs Vital Signs Vital Signs: 12/26/24 11:22 12/26/24 11:22 Temperature 98.4 F Temperature Source Temporal Pulse Rate 81 Respiratory Rate 16 Respiratory Pattern Normal Blood Pressure 152/104 H Blood Pressure Mean 120 Blood Pressure Source Monitor Blood Pressure Position Sitting Blood Pressure Location Left Arm Pulse Ox 100 Oxygen Delivery Method Room Air Weight Weight: 187 lb 13.341 oz Body Mass Index (BMI) 33.3 Physical Exam Const alert, oriented x3, no apparent distress and healthy appearing General Appearance: cooperative GI normal to inspection, nondistended, normoactive bowel sounds, soft to palpation, non-tender and non-distended Percussion: normal to percussion Rectal Exam: deferred Results Lab / Micro Data Labs: Laboratory Results - last 24 hr 12/26/24 11:00: Urine Test Negative Assessment & Plan Assessment/Plan (1) Colon cancer screening: PLAN: She was explained alternatives, risk, benefits including not withstanding bleeding, infection, sepsis, perforation, need for charge and . She have an ASA of 3.
[2024-12-26 12:50] VITALS: BP 123/85; BP 152/104; PULSE 90; RESP 16; TEMP 36.3; O2SAT 99
--- NOTE | 2024-12-26 12:54 | OP.COLON_ITS ---
Patient Name: Glo Medina Procedure Date: 12/26/2024 11:52 AM Date of : 1980 Age: 44 Procedure: Colonoscopy Indications: Screening for colorectal malignant neoplasm Providers: Jairon Vanegas DO Referring MD: Oliver Junior MD Medicines: Monitored Anesthesia Care Patient Profile: This is a 44 year old female. Refer to note in patient chart for documentation of history and physical. Last Colonoscopy: none. The patient's first colonoscopy is today. Complications: No immediate complications. Procedure: Pre-Anesthesia Assessment: - Prior to the procedure, a History and Physical was performed, and patient medications and allergies were reviewed. The patient is competent. The risks and benefits of the procedure and the sedation options and risks were discussed with the patient. All questions were answered and informed consent was obtained. Patient identification and proposed procedure were verified by the physician in the pre-procedure area. Mental Status Examination: alert and oriented. Airway Examination: normal oropharyngeal airway and neck mobility. Respiratory Examination: clear to auscultation. CV Examination: normal. ASA Grade Assessment: II - A patient with mild systemic disease. After reviewing the risks and benefits, the patient was deemed in satisfactory condition to undergo the procedure. The anesthesia plan was to use monitored anesthesia care (MAC). Immediately prior to administration of medications, the patient was re-assessed for adequacy to receive sedatives. The heart rate, respiratory rate, oxygen saturations, blood pressure, adequacy of pulmonary ventilation, and response to care were monitored throughout the procedure. The physical status of the patient was re-assessed after the procedure. After I obtained informed consent, the scope was passed under direct vision. Throughout the procedure, the patient's blood pressure, pulse, and oxygen saturations were monitored continuously. The Colonoscope was introduced through the anus and advanced to the cecum, identified by the appendiceal orifice, IC valve and transillumination. The colonoscopy was performed without difficulty. The patient tolerated the procedure well. The quality of the bowel preparation was adequate. The ileocecal valve, appendiceal orifice, and rectum were photographed. Scope In: 12:30:57 PM Scope Withdrawal Time 0 hours 8 minutes 44 seconds Scope Out: 12:43:43 PM Total Procedure Duration Time 0 hours 12 minutes 46 seconds Findings: The perianal and digital rectal examinations were normal. A 5 mm polyp was found in the descending colon. The polyp was sessile. The polyp was removed with a jumbo cold forceps. Resection and retrieval were complete. Verification of patient identification for the specimen was done. Estimated blood loss was minimal. The exam was otherwise without abnormality on direct and retroflexion views. The exam was otherwise without abnormality on direct and retroflexion views. Impression: - One 5 mm polyp in the descending colon, removed with a jumbo cold forceps. Resected and retrieved. - The examination was otherwise normal on direct and retroflexion views. - The examination was otherwise normal on direct and retroflexion views. Recommendation: - Discharge patient to home. - Resume previous diet. - Continue present medications. - Await pathology results. - Repeat colonoscopy in 5 years for surveillance. Procedure Code(s): --- Professional --- 85900, Colonoscopy, flexible; with biopsy, single or multiple CPT copyright 2021 [employer]. All rights reserved. The codes documented in this report are preliminary and upon advanced research programs director review may be revised to meet current compliance requirements. Jairon Vanegas DO 12/26/2024 12:54:00 PM This report has been signed electronically. Number of Addenda: 0 Note Initiated On: 12/26/2024 11:52 AM
--- NOTE | 2024-12-26 12:54 | OP.CCLET_ITS ---
12/26/2024 Oliver Junior MD [address] [place] [address] [place] [address] Re : Colonoscopy procedure for Glo Sawilly Dear Dr. Junior This procedure was performed on Thursday, December 26, 2024. My impressions and recommendations are as follows: Impressions : - One 5 mm polyp in the descending colon, removed with a jumbo cold forceps. Resected and retrieved. - The examination was otherwise normal on direct and retroflexion views. - The examination was otherwise normal on direct and retroflexion views. Recommendations : - Discharge patient to home. - Resume previous diet. - Continue present medications. - Await pathology results. - Repeat colonoscopy in 5 years for surveillance. My findings are described in the full procedure note, which is enclosed. If I can be of further assistance, please feel free to contact me at . Sincerely, Jairon Friend, 12/26/2024 12:54:00 PM This report has been signed electronically.
[2024-12-26 12:55] VITALS: BP 131/88; BP 152/104; PULSE 84; RESP 18; O2SAT 100
--- NOTE | 2024-12-26 12:55 | PCM.POST.ANE ---
Anesthesia: Postop Eval I Current Vital Signs Temperature: 97.4 F Pulse Rate: 83 Blood Pressure: 123/85 Respiratory Rate: 16 Pulse Ox: 98 Oxygen Delivery Method: Room Air Assessment Airway patent: Yes Spontaneous unlabored respirations: Yes Mental status: Awake nausea: No Vomiting: No Anesthesia Complication: Yes Anesthesia Complication Comment:: profuse movements d/t etomidate Fluid Hydration Crystalloid volume administer (ml): 40 Total IV fluid infused: 40 Progress Note Anesthesia document: Postop Eval 1 completed: Yes
[2024-12-26 12:56] VITALS: BP 123/85; PULSE 83; RESP 16; TEMP 36.3; O2SAT 98
[2024-12-26 13:00] VITALS: BP 125/92; BP 152/104; PULSE 77; RESP 16; TEMP 36.9; O2SAT 98
--- NOTE | 2024-12-26 13:09 | PCM.POSTANE2 ---
Anesthesia Postop Eval I Sum Postop Eval Completion status Anesthesia document: Postop Eval 1 completed: Yes Anesthesia Postop Eval I Summary Anesthesia Postop Eval I Summary: Anesthesia Postop Eval I: Assessment Summary Airway patent Yes 12/26/24 12:56 [email or web address] Spontaneous unlabored Yes 12/26/24 12:56 [email or web address] respirations Mental status Awake 12/26/24 12:56 [email or web address] nausea No 12/26/24 12:56 [email or web address] Vomiting No 12/26/24 12:56 [email or web address] Anesthesia Postop Eval I: Fluid Summary Crystalloid volume administer 40 12/26/24 12:56 [email or web address] (ml) Colloids volume administered ( ml) Blood Product volume administered (ml) Total IV fluid infused 40 12/26/24 12:56 [email or web address] Anesthesia Postop Eval I: Summary Notes Anesthesia Complication Yes 12/26/24 12:56 [email or web address] Anesthesia Complication profuse movements 12/26/24 12:56 [email or web address] Comment: d/t etomidate Post-operative progress note Anesthesia: Postop Eval II Evaluation Mental status: Awake Pain Level: 0 nausea: No Vomiting: No
[2024-12-26 13:13] VITALS: BP 152/104
== END 2024-12-26 14:35 | disposition home or self-care (01) ==
LOC: EN 10:45 → AC 10:46
PROVIDERS: Anesthesiology; PCP Internal Medicine; Referring Provider Internal Medicine; Visit Provider Internal Medicine Gastroenterology
PROC: 0DJD8ZZ Inspection of Lower Intestinal Tract, Via Natural or Artificial Opening Endoscopic (ICD-10-PCS; CPT 45378; principal; 2024-12-26 11:55)
DX: Z12.11 Encounter for screening for malignant neoplasm of colon (principal); K21.9 Gastro-esophageal reflux disease without esophagitis; K63.5 Polyp of colon; I10 Essential (primary) hypertension; E07.9 Disorder of thyroid, unspecified; Z79.85 Long-term (current) use of injectable non-insulin antidiabetic drugs; Z79.890 Hormone replacement therapy; Z79.899 Other long term (current) drug therapy; Z87.891 Personal history of nicotine dependence; Z83.719 Family history of colon polyps, unspecified
CPT/HCPCS: 45380; 81025; 88305; A4216; J2405

== ENCOUNTER → 2025-03-12 | Outpatient (CLI) | payer OTHER, SELFPAY ==
[2025-03-12 16:47] LABS: Absolute Lymphocyte Count 1.59 X10^3/uL (0.83-4.51); Absolute Neutrophil Count 4.2 X10^3/uL (2.0-7.7); Basophil# 0.08 X10^3/uL; Basophil% 1.2 % (0-1); Eosinophils% 4.6 % (0-5); Hematocrit 38.4 % (37-47); Hemoglobin 12.3 g/dL (12.0-15.0); Lymphocyte # 1.59 X10^3/ul (0.83-4.51); Lymphocyte % 24.4 % (19-41); Mean Corpuscular Hgb 26.8 pg (27.0-32.0); Mean Corpuscular Volume 83.7 fL (81-99); Mean Platelet Vol. 10.9 fl (6.2-12.0); Monocyte% 4.6 % (0-10); NRBC Flagged by Analyzer 0 % (0-5); Neutrophil # 4.22 X10^3/uL (2.7-7.7); Neutrophil % 64.9 % (47-70); Platelet Count 239 K/mm3 (150-450); RBC Distribution Width CV 13.2 % (11.6-14.6); RBC Distribution Width SD 40.1 fl (35.1-43.9); Red Blood Count 4.59 M/mm3 (4.2-5.4); White Blood Count 6.5 K/mm3 (4.4-11.0)
[2025-03-12 18:14] LABS: ALB/GLOB Ratio 1.4 RATIO (0.9-2.4); AST(SGOT) 19 U/L (<=31); Alanine Aminotransfer ALT/SGPT 16 U/L (<=34); Albumin, Serum 4.4 g/dL (3.5-5.0); Alkaline Phosphatase 43 U/L (35-104); Anion Gap 11 (5-15); BUN 11 mg/dL (4-19); BUN/Creat Ratio 12.3 RATIO (10-20); Calcium,Total 9.2 mg/dL (7.6-11.0); Carbon Dioxide 23.9 mmol/L (21.0-32.0); Chloride 104 mmol/L (98-108); EST Glomerular Filtration Rate 81 (>60); Globulin 3.3 g/dL (2.2-4.2); Glucose 86 mg/dL (70-99); Potassium 4.1 mmol/L (3.3-5.1); Protein, Total 7.7 g/dL (5.9-8.4); Sodium Level 139 mmol/L (133-145); Total Bilirubin 0.21 mg/dL (0.00-1.30)
== END | disposition home or self-care (01) ==
LOC: BIMLAB 15:19
PROVIDERS: PCP Internal Medicine; Referring Provider Internal Medicine; Visit Provider Internal Medicine
DX: E03.9 Hypothyroidism, unspecified (principal); F41.9 Anxiety disorder, unspecified; F32.A Depression, unspecified
CPT/HCPCS: 36415; 80053; 84439; 84443; 85025

== ENCOUNTER → 2025-04-02 | Outpatient (CLI) | payer OTHER, SELFPAY | END | disposition home or self-care (01) | LOC: SL 11:27 | PROVIDERS: PCP Internal Medicine; Referring Provider Internal Medicine; Visit Provider Internal Medicine | DX: G47.10 Hypersomnia, unspecified (principal) | CPT/HCPCS: 95806 ==

== ENCOUNTER 2025-05-09 02:02 | Emergency (ER) | payer OTHER, SELFPAY ==
[2025-05-09 02:03] VITALS: BP 167/91; PULSE 84; RESP 18; TEMP 36.4; O2SAT 99; BMI 36.5
[2025-05-09] MEDS: 0.9% Normal Saline (1000mL) 1,000 ML 999 ML IV (02:15)
--- NOTE | 2025-05-09 02:15 | EDS_ITS ---
HPI History of Present Illness Chief Complaint: Eye Problem Narrative Narrative: Froy patient is a 44-year-old female with past medical history of GERD, hypertension, thyroid nodule who presented to the emergency department chief complaint of right eye pain. Patient states that she was cleaning her contacts with a cleaning solution that has hydroperoxide in it. States that she forgot that she put this on her contacts and immediately put this in her right eye states that immediately she had pain. She did she took this out and try to get in the shower to flush her eye out. States that she fell asleep however she woke up with severe pain therefore she came here for further evaluation management. [facility] Medical History Wears contact lenses Alcohol use Thyroid disease Migraine headache Dietary restriction Heartburn Former smoker Colon cancer screening Preventative health care Multiple allergies GERD (gastroesophageal reflux disease) Cough Irregular menses Vitamin deficiency Anxiety and depression Acne Lymphadenopathy of head and neck region Obesity (BMI 30-39.9) Abnormal EKG Anemia Thyroid nodule Hypersomnolence Hypertension Home Medications ?Medication ?Instructions ?Recorded ?Last Taken ?Type L.acidoph,paracasei,B.animalis 10 1 cell PO 04/01/21 U nknown History billion cell capsule (Digestive Advantage Advanced Probiotic) adapalene 0.1 % topical gel 1 applic topical QHS #45 g jimmy 02/15/22 Unknown Rx amlodipine 10 mg tablet 10 mg PO DAILY #90 tabs /12/25/24 Rx valsartan 320 mg tablet 320 mg PO DAILY #90 tabs 12/25/24 Rx clindamycin phosphate 1 % topical 1 applic topical QAM AND QHS #60 06/09/24 Unknown Rx gel grams hydrochlorothiazide 25 mg tablet 25 mg PO QAM #90 tabs 06/10/24 12/25/24 Rx levothyroxine 88 mcg tablet 88 mcg PO DAILY #90 tabs 1 10/18/23 12/25/24 Rx cholecalciferol (vitamin D3) 50 50 mcg PO QDAY 5 Unknown History mcg (2,000 unit) capsule multivitamin 1 tab PO QDAY 10/22/24 Unkno wn History omeprazole 40 mg capsule,delayed 40 mg PO DAILY #90 ca ps 01/01/25 Unknown Rx release erythromycin 5 mg/gram (0.5 %) eye 1 applic RIGHT EYE DAILY #3.5 grams 05/09/25 Unknown Rx ointment Allergy/AdvReac Type Severity Reaction Status Date / Time Fish Containing Products Allergy Severe THROAT Verified 05/09/25 02:08 SWELLING shellfish derived Allergy Severe THROAT Verified 05/09/25 02:08 SWELLING Egg Derived Allergy Unknown Verified 05/09/25 02:08 milk (dairy) Allergy Throat Verified 05/09/25 02:08 issues, GERD Family History Father Hypertension Thyroid disorder Colon polyps Grandfather Lung cancer Grandmother Cancer Mother Colon polyps Surgical History S/P wisdom tooth extraction S/P Social History household members: spouse current occupational status: employed Smoking Status: Former smoker alcohol intake: never substance use type: does not use caffeine: Yes what type of physical activity do you participate in: aerobics and weight training frequency: 3-4 times per week seatbelt use: always do you feel safe at home: Yes additional social history: Woody SANTOS ROS ED ROS Narrative Constitutional: Denies any fevers, chills, headaches Eyes: Complains of right eye pain as noted above Neurological: Denies numbness, weakness, tingling Musculoskeletal: Denies back pain Skin: Denies any rashes or lesions EXAM Physical Exam Narrative Exam Narrative: General: Patient lying in bed did appear to be uncomfortable secondary to her right eye pain Head: Atraumatic, normocephalic Eyes: PERRL bilaterally, EOMI Black, patient does have redness noted in the right eye in the conjunctival region diffusely Neck: Soft, supple, trachea midline Extremities: +5/5 strength noted in the bilateral lower extremities Neurological: Patient follow commands knew that she was at [facility] year is 2024 Skin: Warm, dry, tact no rashes or lesions noted Const Vital Signs: 05/09/25 02:03 Temperature 97.6 F L Temperature Source Oral Pulse Rate 84 Respiratory Rate 18 Blood Pressure 167/91 H Blood Pressure Mean 116 Pulse Ox 99 Oxygen Delivery Method Room Air MDM MDM MDM Narrative Medical decision making narrative: Patient is a 44-year-old female who presents to the emergency department with a chief complaint of right eye pain after using a contacts lens cleaning solution and getting in her eye. On the differential diagnosis includes but not limited to right eye pain secondary to irritant, corneal abrasion, acute angle-closure glaucoma although have low suspicion for this. Once workup is obtained reviewed she will be reevaluated. Patient will have her eye flushed here in the emergency department. After this and she is feeling better detailed eye exam will be performed. After liter of irrigation she did not tolerate Lars lens she states that she is still having a lot of pain out of her right eye. At this point in time we will do a second liter of normal saline irrigation of her right eye. I will reach out to ophthalmology and discussed with them in regards to further evaluation in regards to tetracaine and fluorescein in her eye after this solution was in her eye earlier. She states that her vision is normal for her currently which is slightly blurred as she does not have a contact in. Discussed with Dr. More ophthalmology and he states that we do not need to do a second liter of irrigation he states that it is okay to apply the tetracaine and he states that since this is hydrogen peroxide basis hurts significantly but notes that is benign overall. He states that we should send her home with ointment which we will send her home with erythromycin ointment as well as a tetracaine per his recommendation. He was recommending that if she is still having difficulty by Sunday then she should follow-up with their group or with her acquisition marketing manager. I discussed this plan with the patient she is agreeable with this plan. Patient had tetracaine applied to her right eye and immediately felt significant improvement. Erythromycin ointment was sent to the pharmacy. She is advised to return with any other concerns. All question concerns answered she was discharged home in stable condition. Significant other at bedside was also agreeable with this. Discharge Plan Triage Chief Complaint: Eye Problem ED Provider: Speedy Clay Dx/Rx/DC Orders Clinical Impression: Acute pain in right eye, Chemical exposure of eye Prescriptions: New erythromycin 5 mg/gram (0.5 %) ointment 1 applic RIGHT EYE DAILY Qty: 3.5 0RF No Action Digestive Advantage Advanced 10 billion cell capsule 1 cell PO amlodipine 10 mg tablet 10 mg PO DAILY Qty: 90 3RF valsartan 320 mg tablet 320 mg PO DAILY Qty: 90 3RF multivitamin Tablet 1 tab PO QDAY cholecalciferol (vitamin D3) 50 mcg (2,000 unit) capsule 50 mcg PO QDAY adapalene 0.1 % gel 1 applic topical QHS Qty: 45 3RF clindamycin phosphate 1 % gel 1 applic topical QAM AND QHS Qty: 60 2RF hydrochlorothiazide 25 mg tablet 25 mg PO QAM Qty: 90 3RF levothyroxine 88 mcg tablet 88 mcg PO DAILY Qty: 90 1RF omeprazole 40 mg capsule,delayed release(DR/EC) 40 mg PO DAILY Qty: 90 1RF Primary Care Provider: Oliver Junior Referrals: Oliver Junior MD [Primary Care Provider] - Activity Restrictions/Additional Instructions: Follow-up with your acquisition marketing manager in the outpatient setting. Return with worsening symptoms or any concerns. Use the erythromycin eye ointment as prescribed. Use the tetracaine drops as needed for pain you can apply 1 drop to your right eye as needed every 2-3 hours. Print Language: Macedonian Disposition Disposition: Home, Self Care
--- OUTSIDE RECORDS SUMMARY | 2025-05-09 02:38 | XMS RPT_ITS | CCD ---
Author Organization [facility] CliniSynm Care Team Providers Care Straight Line Edger Name Role Phone Dr. Oliver Junior Primary Care Provider [phone] Dr. Oliver Junior Attending Provider [phone] Dr. Oliver Junior Referring Provider [phone] Pardeep SPIRAL GEAR GENERATOR, SPIRAL GEAR GENERATOR-C Baldev Attending Provider [phone]) Dr. Oliver Junior Primary Care Provider 1(33 0) Dr. Oliver Junior Referring Provider [phone] Pardeep SPIRAL GEAR GENERATOR, SPIRAL GEAR GENERATOR-C Baldev Attending Provider 1(330) Dr. Oliver Junior Primary Care Provider 1(33 0) Dr. Oliver Junior Referring Provider [phone] Sven SPIRAL GEAR GENERATOR, SPIRAL GEAR GENERATOR-C Nighat Attending Provider [phone] ) Dr. Oliver Junior Primary Care Provider 1(33 0) Dr. Oliver Junior Referring Provider [phone])2 Sven SPIRAL GEAR GENERATOR, ERYN-Kp Disla Attending Provider Eran STACY, PA Zuleyma Zhao Attending Provider Dr. Cynthia Arellano Attending Provider 1(330) Dr. Oliver Junior Primary Care Provider 1(33 0) Dr. Oliver Junior Attending Provider [phone])2 Dr. Oliver Junior Referring Provider [phone])2 Dr. Oliver Junior Attending Provider [phone])2 Vernon [place], Dr. Boyd Primary Care Provider Vernon C[place], Dr. Boyd Attending Provider 1(33 0) Vernon [place], Dr. Boyd Referring Provider 1(33 0) Korin Merrill Attending Provider Unavailable Wes SPIRAL GEAR GENERATOR-C, Santos Attending Provider Wes SPIRAL GEAR GENERATOR-C, Santos Referring Provider Romina HUSSEIN, Dr. De La O Attending Provider Romina HUSSEIN, Dr. De La O Other Provider [phone] Vernon [place], Dr. Boyd Primary Care Provider Vernon C[place], Dr. Boyd Referring Provider 1(33 0) Vernon [place], Dr. Boyd Attending Provider 1(33 0) Jairon Vanegas Attending Unavailable Oleghe, Efewongbe Referring Unavailable Oleghe, Efewongbe Primary Care Unavailable Jairon Vanegas Consulting Unavailable Santos Solis Attending Unavailable Oleghe, Efewongbe Primary Care Unavailable Santos Solis Referring Unavailable Oleghe, Efewongbe Attending Unavailable Oleghe, Efewongbe Referring Unavailable Oleghe, Efewongbe Primary Care Unavailable Oleghe, Efewongbe Attending Unavailable Oleghe, Efewongbe Referring Unavailable Oleghe, Efewongbe Primary Care Unavailable KarriullAlix kerr Attending Unavailable Ferullo Alix Referring Unavailable Oleghe, Efewongbe Primary Care Unavailable FerulloDeviAlix Attending Unavailable Ferullo Alix Referring Unavailable Oleghe, Efewongbe Primary Care Unavailable Jairon Vanegas Attending Unavailable Oleghe, Efewongbe Primary Care Unavailable Oleghe, Efewongbe Referring Unavailable Ferullo Alix Attending Unavailable Oleghe, Efewongbe Referring Unavailable Oleghe, Efewongbe Primary Care Unavailable Nighat Machuca NP Attending Unavailable Oleghe, Efewongbe Referring Unavailable Oleghe, Efewongbe Primary Care Unavailable Oleghe, Efewongbe Attending Unavailable Oleghe, Efjohndonis Referring Unavailable Vernon Darielongdonis Primary Care Unavailable Oliver Junior Attending Unavailable Lizz Junioramandajohn Referring Unavailable Vernon Darielongbe Primary Care Unavailable Korin Merrill Attending Unavailable Vernon Oliver Primary Care Unavailable Allergies Allergy Classification Reported Allergen(s) Allergy Type Date of Onset Reaction(s) Facility (2 sources) Seafood Allergy to substance 2 throat swelling [facility] Work Phone: (12 sources) Egg Derived Allergy to substance 2 Unknown [facility] (2 sources) DAIRY Allergy to substance 2 Unknown [facility] Work Phone: (10 sources) cow milk allergenic extract Drug Allergy 3 NEEDS FOLLOW-UP, Throat issues, GERD [facility] (11 sources) Shellfish; Translations: [shellfish derived] Allergy to substance 3 THROAT SWELLING [facility] Comment on above: FROM SEAFOOD ALLERGY (10 sources) Fish Containing Products Allergy to substance 3 THROAT SWELLING [facility] Comment on above: FROM SEAFOOD ALLERGY (1 source) egg extract Drug Allergy 5 [facility] Repository (1 source) Milk Drug allergy (disorder) 5 [facility] (1 source) Fish Containing Products Drug allergy (disorder) 5 [facility] Medications Current Medications Medication Drug Class(es) Dates Sig (Normalized) Sig (Original) adapalene 0.001 mg/mg topical gel (20 sources) Retinoid Start: 02-15-2022 Adapalene 0.1 % gel Active 1 NMA TOPICAL AT BEDTIME 45 3 February 15, 2022 12:00am Start: 02-15-2022 Adapalene Acti ve 1 APPLIC TOPICAL AT BEDTIME 45 February 15, 2022 12:00am Start: 02-03-2022 End: 02-15-2022 Adapalene 0.3 % gel Disconti nued 1 NMA TOPICAL EVERY EVENING 45 3 February 03, 2022 12:00am February 15, 2022 10:52am amLODIPine 10 mg oral tablet (20 sources) Dihydropyridine Calcium Channel Eloina Start: 08-29-2022 End: 02-27-2023 take 1 tablet by mouth once daily Amlodipine 10 mg tablet Active 10 mg PO DAILY February 27, 2023 8:25am Start: 08-18-2022 End: 08-29-2022 take 2 tablets by mouth once daily Amlodipine 5 mg tablet Discontinued 10 mg PO DAILY August 18, 2022 5:03pm August 29, 2022 10:55am Start: 08-18-2022 End: 08-29-2022 take 10 mg by mouth once daily Amlodipine Discontinued 10 MG PO DAILY August 18, 2022 5:03pm August 29, 2022 10:55am Start: 05-26-2022 End: 08-18-2022 take 1 tablet by mouth once daily Amlodipine 5 mg tablet Discontinued 5 mg PO DAILY May 26, 2022 12:00am August 18, 2022 5:07pm cholecalciferol 0.05 mg oral capsule (16 sources) Vitamin D Start: 10-22-2024 take 1 capsule by mouth once daily Cholecalciferol (Vitamin D3) 50 mcg (2,000 unit) capsule Active 50 ug PO daily October 22, 2024 1:00am Start: 04-01-2021 End: 05-26-2022 take 1 capsule by mouth once daily Cholecalciferol (Vitamin D3) 25 mcg (1,000 unit) capsule Discontinued 25 ug PO DAILY April 01, 2021 12:00am May 26, 2022 10:22am L.Acidoph, Paracasei,B. Lact is (Digestive Advantage Advanced) 10 billion cell capsule (8 sources) Start: 04-01-2021 L.Acidoph, Par acasei,B. Lactis (Digestive Advantage Advanced) 10 billion cell capsule Active CELL PO March 31, 2021 11:00pm Start: 04-01-2021 L.Acidoph, Par acasei,B. Lactis (Digestive Advantage Advanced) 10 billion cell capsule Active CELL PO April 01, 2021 12:00am L.Acidoph,Paracasei,B.Animal is (Digestive Advantage Advanced) 10 billion cell capsule (4 sources) Start: 04-01-2021 L.Acidoph,Paracasei,B.Animal is (Digestive Advantage Advanced) 10 billion cell capsule Active 1 NMA PO April 01, 2021 12:00am levothyroxine sodium 0.088 m g oral tablet (20 sources) l- Th yr ox in e Start: 08-18-2024 take 1 tablet by mouth once daily Levothyroxine 88 mcg tablet Active 88 ug PO DAILY 90 August 18, 2024 6:22pm Start: 02-27-2023 End: 03-26-2024 take 1 tablet by mouth once daily Levothyroxine 88 mcg tablet Discontinued 88 ug PO DAILY 90 September 25, 2023 9:02am January 11, 2024 9:56am Start: 11-28-2022 End: 02-27-2023 take 1 tablet by mouth once daily Levothyroxine 75 mcg tablet Discontinued 75 ug PO DAILY 90 November 28, 2022 3:04pm February 27, 2023 2:37pm Start: 09-28-2022 End: 11-28-2022 take 1 tablet by mouth once daily Levothyroxine 50 mcg tablet Discontinued 0 .ROUTE .COMPLEX 90 September 28, 2022 1:47pm November 28, 2022 6:50pm TAKE 1 TABLET BY MOUTH EVERY DAY Start: 06-30-2022 End: 09-28-2022 take 1 tablet by mouth once daily Levothyroxine 25 mcg tablet Discontinued 0 .ROUTE .COMPLEX 90 0 September 28, 2022 1:24pm September 28, 2022 1:48pm TAKE 1 TABLET BY MOUTH EVERY DAY Multivitamin tablet (4 sources) Start: 10-22-2024 Multivitamin tablet Active 1 {tbl} PO daily October 22, 2024 1:00am valsartan 320 mg oral tablet (20 sources) Angiotensin 2 Receptor Eloina Start: 02-03-2022 End: 02-27-2023 take 1 tablet by mouth once daily Valsartan 320 mg tablet Active 320 mg PO DAILY 90 February 27, 2023 8:25am Start: 04-28-2021 End: 02-03-2022 take 1 tablet by mouth once daily Valsartan 160 mg tablet Discontinued 160 mg PO DAILY 90 2 May 30, 2021 3:03pm February 03, 2022 9:53am Start: 04-14-2021 End: 04-28-2021 Valsartan 160 mg tablet Disc ontinued 80 mg PO DAILY 30 0 April 14, 2021 12:00am April 28, 2021 2:25pm Start: 04-14-2021 End: 04-28-2021 take 80 mg by mouth once daily Valsartan Discontinued 80 MG PO DAILY April 14, 2021 12:00am April 28, 2021 2:25pm Completed/Discontinued Medications Medication Drug Class(es) Dates Sig (Normalized) Sig (Original) amoxicillin 500 mg oral capsule (8 sources) Penicillin-class Antibacterial Start: 08-04-2023 End: 08-14-2023 take 1 capsule by mouth twice daily Amoxicillin 500 mg capsule Discontinued 500 mg PO TWICE A DAY 20 10 0 August 04, 2023 12:00am August 13, 2023 1:00am August 14, 2023 1:05am azithromycin 250 mg oral tablet (12 sources) Macrolide Antimicrobial Start: 08-13-2018 End: 03-03-2021 take 2-5 tablets by mouth once daily Azithromycin 250 mg tablet Discontinued 0 PO .COMPLEX 6 0 August 13, 2018 1:00am March 03, 2021 8:07am take 500 mg today (day 1), then 250 mg for 4 days (days 2-5) PO benzonatate 100 mg oral capsule (19 sources) Non-narcotic Antitussive Start: 08-08-2023 End: 09-10-2023 take 1 capsule by mouth three times daily as needed for cough Benzonatate 100 mg capsule Discontinued 100 mg PO THREE TIMES A DAY as needed for cough 30 0 August 08, 2023 1:00am September 10, 2023 3:16pm Start: 08-05-2018 End: 03-03-2021 take 1 capsule by mouth three times daily as needed for cough Benzonatate 200 mg capsule Discontinued 200 mg PO THREE TIMES A DAY as needed for cough 30 0 August 05, 2018 1:00am March 03, 2021 8:07am clindamycin 0.01 mg/mg topical gel (20 sources) Lincosamide Antibacterial Start: 05-25-2023 End: 01-11-2024 Clindamycin Phosphate 1 % gel Discontinued 1 NMA TOPICAL every day in the morning and at bedtime 60 0 June 25, 2023 12:59pm January 11, 2024 9:56am Start: 02-03-2022 End: 06-09-2024 Clindamycin Phosphate 1 % ge l Discontinued 1 NMA TOPICAL every day in the morning and at bedtime 60 2 January 11, 2024 9:56am June 09, 2024 4:58pm Start: 02-03-2022 End: 05-25-2023 Clindamycin Phosphate 1 % ge l Discontinued 1 NMA TOPICAL every day in the morning and at bedtime 60 3 February 03, 2022 12:00am May 25, 2023 5:33pm doxycycline hyclate 100 mg oral tablet (7 sources) Tetracycline-class Drug Start: 08-09-2023 End: 01-11-2024 take 1 tablet by mouth twice daily Doxycycline Hyclate 100 mg tablet Discontinued 100 mg PO TWICE A DAY 10 August 09, 2023 1:00am January 11, 2024 9:30am escitalopram 5 mg oral tablet (10 sources) Serotonin Reuptake Inhibitor Start: 09-28-2022 End: 02-27-2023 take 1 tablet by mouth once daily Escitalopram Oxalate (Lexapro) 5 mg tablet Discontinued 5 mg PO DAILY 90 September 28, 2022 1:00am February 27, 2023 8:26am ferrous sulfate 325 mg oral tablet (12 sources) Start: 04-05-2021 End: 05-26-2022 take 1 tablet by mouth once daily Ferrous Sulfate 325 mg (65 mg iron) tablet Discontinued 325 mg PO DAILY 90 April 05, 2021 12:00am May 26, 2022 10:22am hydroCHLOROthiazide 25 mg oral tablet (20 sources) Thiazide Diuretic Start: 04-01-2021 End: 06-10-2024 take 1 tablet by mouth once daily in the morning Hydrochlorothiazide 25 mg tablet Discontinued 25 mg PO EVERY MORNING 90 May 25, 2022 9:55am June 10, 2024 12:24pm lansoprazole 30 mg delayed release oral capsule (4 sources) Proton Pump Inhibitor Start: 03-21-2024 End: 05-08-2024 take 1 capsule by mouth once daily Lansoprazole 30 mg capsule,delayed release(DR/EC) Discontinued 30 mg PO DAILY 90 March 21, 2024 12:00am May 08, 2024 8:34am Leg Brace (Knee Support Brace) [facility] (12 sources) Start: 07-21-2021 End: 02-03-2022 Leg Brace (Knee Support Brace) misc Discontinued 0 .ROUTE .MEDSUPPLY 1 July 21, 2021 12:00am February 03, 2022 9:25am As directed Start: 07-21-2021 End: 02-03-2022 Leg Brace (Knee Support Brac e) misc Discontinued 0 .ROUTE .MEDSUPPLY July 20, 2021 11:00pm February 03, 2022 8:25am As directed Start: 07-21-2021 End: 02-03-2022 Leg Brace (Knee Support Brac e) misc Discontinued 0 .ROUTE .MEDSUPPLY July 21, 2021 12:00am February 03, 2022 9:25am As directed meloxicam 15 mg oral tablet (12 sources) Nonsteroidal Anti-inflammatory Drug Start: 07-21-2021 End: 02-03-2022 take 1 tablet by mouth once daily Meloxicam 15 mg tablet Discontinued 15 mg PO DAILY 14 July 21, 2021 12:00am February 03, 2022 9:25am joint pain methylPREDNISolone 4 mg oral tablet (12 sources) Corticosteroid Start: 08-13-2018 End: 08-18-2018 take 1 tablet by mouth once Methylprednisolone (Medrol (Holden)) 4 mg tablets,dose pack Discontinued 4 mg PO per package directions 21 5 0 August 13, 2018 1:00am August 17, 2018 1:00am August 18, 2018 1:15am Acute bronchitis, unspecified omeprazole 40 mg delayed release oral capsule (20 sources) Proton Pump Inhibitor Start: 03-26-2024 End: 01-01-2025 take 1 capsule by mouth once daily Omeprazole 40 mg capsule,delayed release(DR/EC) Discontinued 40 mg PO DAILY 90 October 06, 2024 10:24am January 01, 2025 9:36am Start: 01-11-2024 End: 03-21-2024 take 1 capsule by mouth once daily Omeprazole 40 mg capsule,delayed release(DR/EC) Discontinued 40 mg PO DAILY 90 January 11, 2024 12:00am March 21, 2024 1:34pm ondansetron 4 mg oral tablet (12 sources) Serotonin-3 Receptor Antagonist Start: 10-18-2017 End: 10-21-2017 take 1 tablet by mouth every four hours as needed for nausea and vomiting Ondansetron Hcl (Zofran) 4 mg tablet Discontinued 4 mg PO Q4H as needed for nausea and vomiting 18 3 0 October 18, 2017 1:00am October 20, 2017 1:00am October 21, 2017 1:08am Nausea with vomiting, unspecified predniSONE 20 mg oral tablet (7 sources) Start: 08-08-2023 End: 09-10-2023 take 2 tablets by mouth once daily Prednisone 20 mg tablet Discontinued 40 mg PO DAILY 10 August 08, 2023 1:00am September 10, 2023 3:16pm Start: 08-08-2023 End: 09-10-2023 take 40 mg by mouth once daily Prednisone Discontinued 40 MG PO DAILY August 08, 2023 1:00am September 10, 2023 3:16pm 0.25 mg, 0.5 mg dose 1.5 ml semaglutide 1.34 mg/ml pen injector (4 sources) Start: 10-22-2024 End: 03-12-2025 Semaglutide 0.25 mg or 0.5 mg(2 mg/1.5 mL) pen injector Discontinued 0.25 mg SC EVERY WEEK October 22, 2024 1:00am March 12, 2025 2:50pm Mondays sulfamethoxazole 800 mg / trimethoprim 160 mg oral tablet (12 sources) Dihydrofolate Reductase Inhibitor Antibacterial, Sulfonamide Antimicrobial Start: 05-18-2020 End: 05-25-2020 Sulfamethoxazole- Trimethoprim (Bactrim Ds) 800-160 mg tablet Discontinued 1 {tbl} PO Q12H 14 7 0 May 18, 2020 12:00am May 24, 2020 12:00am May 25, 2020 12:02am Turmeric extract (4 sources) Start: 10-22-2024 End: 03-12-2025 take 1 capsule by mouth once daily Turmeric 400 mg capsule Discontinued 400 mg PO daily October 22, 2024 1:00am March 12, 2025 2:50pm Start: 10-22-2024 take 1 capsule by mo uth once daily Turmeric 400 mg capsule Active 400 mg PO daily October 22, 2024 1:00am Problems Active Problems Problem Classification Problem Date Documented Date Episodic/Chronic Acute bronchitis (3 sources) Acute bronchitis; Translations: [Acute bronchitis, unspecified] 08-13-2018 Episodic Allergic reactions (6 sources) Allergic disposition; Translations: [Allergy status to unspecified drugs, medicaments and biological substances status] 01-11-2024 Episodic Anxiety disorders (14 sources) Mixed anxiety and depressive disorder; Translations: [Anxiety disorder, unspecified] Onset: 03-12-2025 09-28-2022 Chronic Deficiency and other anemia (12 sources) Anemia; Translations: [Anemia, unspecified] 04-01-2021 Episodic Esophageal disorders (6 sources) Gastroesophageal reflux disease; Translations: [Gastro-esophageal reflux disease without esophagitis] 01-11-2024 Chronic Essential hypertension (20 sources) Hypertensive disorder; Translations: [Essential (primary) hypertension] Onset: 05-08-2024 Chronic Lymphadenitis (12 sources) Lymphadenopathy of head AND/OR neck; Translations: [Localized enlarged lymph nodes] 08-22-2021 Episodic Menstrual disorders (11 sources) Irregular periods; Translations: [Irregular menstruation, unspecified] 11-23-2022 Chronic Mood disorders (1 source) Mood disorders; Translations: [Depression, unspecified] Onset: 03-12-2025 Mycoses (12 sources) Candidiasis of vagina; Translations: [Candidiasis of vulva and vagina] 05-18-2020 Episodic Nausea and vomiting (3 sources) Nausea and vomiting; Translations: [Nausea with vomiting, unspecified] 10-18-2017 Episodic Nutritional deficiencies (11 sources) Vitamin deficiency; Translations: [Vitamin deficiency, unspecified] 11-23-2022 Episodic Other lower respiratory disease (7 sources) Cough; Translations: [Cough] 09-10-2023 Episodic Other nutritional; endocrine; and metabolic disorders (14 sources) Body mass index 30+ - obesity; Translations: [Obesity, unspecified] 05-30-2021 Chronic Other skin disorders (12 sources) Acne; Translations: [Acne, unspecified] 02-03-2022 Episodic Other skin disorders (3 sources) Acne, unspecified; Translations: [Other acne] Episodic Other upper respiratory infections (20 sources) Acute upper respiratory infection; Translations: [Acute upper respiratory infection, unspecified] 10-18-2017 Episodic Residual codes; unclassified (14 sources) Hypersomnia; Translations: [Hypersomnia, unspecified] 04-01-2021 Chronic Residual codes; unclassified (1 source) Hypersomnia, unspecified; Translations: [Hypersomnia, unspecified] Onset: 04-09-2025 Chronic Skin and subcutaneous tissue infections (12 sources) Onychia of finger; Translations: [Cellulitis of right finger] 05-18-2020 Episodic Thyroid disorders (20 sources) Thyroid nodule; Translations: [Nontoxic single thyroid nodule] Onset: 03-18-2025 Chronic Unclassified (1 source) Z00.00 - Encounter for general adult medical examination without abnormal findings Unclassified (1 source) Z00.00 - Encounter for general adult medical examination without abnormal findings,Z12.11 - Encounter for screening for malignant neoplasm of colon Past or Other Problems Problem Classification Problem Date Documented Date Episodic/Chronic Immunizations and screening for infectious disease (4 sources) Contact with and (suspected) exposure to infections with a predominantly sexual mode of transmission; Translations: [Contact with or exposure to venereal diseases] 07-26-2023 Episodic Malaise and fatigue (1 source) Other fatigue; Translations: [Other fatigue] Onset: 11-21-2024 Episodic Other lower respiratory disease (2 sources) Persistent cough; Translations: [Upper airway cough syndrome] 08-08-2023 Episodic Other screening for suspected conditions (not mental disorders or infectious disease) (20 sources) Electrocardiogram abnormal; Translations: [Abnormal electrocardiogram [ECG] [EKG]] Onset: 05-08-2024 04-11-2021 Episodic Results Test Name Value Interpretation Reference Range Facility Absolute lymphocyte countOrd ered By: Oliver Junior on 03-12-2025 Lymphocytes Auto (Unsp spec) [#/Vol] 1.59 10*3/uL 0.83-4.51 [facility] Absolute neutrophil countOrd ered By: Oliver Junior on 03-12-2025 Neutrophils (Bld) [#/Vol] 4.2 10*3/uL 2.0-7.7 [facility] Anion gap in Serum or Plasma Ordered By: Oliver Junior on 03-12-2025 Anion gap [Moles/Vol] 11 mmol/L 5-15 [facility] Automated lymphocyte count a s percentage of total leukocytesOrdered By: Oliver Junior on 03-12-2025 Lymphocytes/100 WBC Auto (Unsp spec) 24.4 % 19-41 [facility] BUN/creatinine ratioOrdered By: Oliver Junior on 03-12-2025 Urea nitrogen/Creatinine [Mass ratio] 12.3 mg/mg 10- [facility] Basophil percentageOrdered B y: Oliver Jnuior on 03-12-2025 Basophils/100 WBC (Bld) 1.2 % High 0-1 [facility] Bilirubin, totalOrdered By: Oliver Junior on 03-12-2025 Bilirubin [Mass/Vol] 0.21 mg/dL 0.00-1.30 [facility] CBC W/Diff, Automatedon 03-01-2024 Absolute Lymph 1.59 X10 3/uL Normal 0.83-4.51 [facility] Comment on above: Performed By: #### L [id number], [id number], [id number] #### [facility] [address] [place], [address] Absolute Neut 4.2 X10 3/uL Normal 2.0-7.7 [facility] Comment on above: Performed By: #### L [id number], [id number], [id number] #### [facility] [address] [place], [address] Basophils/100 WBC (Bld) 1.2 % High 0-1 [facility] Comment on above: Performed By: #### L [id number], [id number], [id number] #### [facility] [address] [place], [address] Eosinophils/100 WBC (Bld) 4.6 % Normal 0-5 [facility] Comment on above: Performed By: #### L [id number], [id number], [id number] #### [facility] [address] [place], [address] Erythrocyte distribution width (RBC) [Ratio] 13.2 % Normal 11.6-14.6 [facility] Comment on above: Performed By: #### L [id number], [id number], [id number] #### [facility] [address] [place], [address] Hematocrit (Bld) [Volume fraction] 38.4 % Normal 37-47 [facility] Comment on above: Performed By: #### L [id number], [id number], [id number] #### [facility] [address] [place], [address] Hemoglobin (Bld) [Mass/Vol] 12.3 g/dL Normal 12.0-15.0 [facility] Comment on above: Performed By: #### L [id number], [id number], [id number] #### [facility] [address] [place], [address] IG% 0.300 Normal 0.0-0.9 [facility] Comment on above: Result Comment: IG% - Immature Granulocytes (promyelocytes, myelocytes and metamyelocytes) > 1% indicates that a LEFT SHIFT is Present. Performed By: #### L [id number], [id number], [id number] #### [facility] [address] [place], [address] Lymphocytes/100 WBC (Bld) 24.4 % Normal 19-41 [facility] Comment on above: Performed By: #### L [id number], [id number], [id number] #### [facility] [address] [place], [address] MCH (RBC) [Entitic mass] 26.8 pg Low 27.0-32.0 [facility] Comment on above: Performed By: #### L [id number], [id number], [id number] #### [facility] [address] [place], [address] MCHC (RBC) [Mass/Vol] 32.0 g/dL Normal 32-36 [facility] Comment on above: Performed By: #### L [id number], [id number], [id number] #### [facility] [address] [place], [address] MCV (RBC) [Entitic vol] 83.7 fL Normal 81-99 [facility] Comment on above: Performed By: #### L [id number], [id number], [id number] #### [facility] [address] [place], [address] Monocytes/100 WBC (Bld) 4.6 % Normal 0-10 [facility] Comment on above: Performed By: #### L [id number], [id number], [id number] #### [facility] [address] [place], [address] Neutrophils/100 WBC (Bld) 64.9 % Normal 47-70 [facility] Comment on above: Performed By: #### L [id number], [id number], [id number] #### [facility] [address] [place], [address] Nucleated RBC (Bld) [#/Vol] 0 10*3/uL Normal 0-5 [facility] Comment on above: Performed By: #### L [id number], [id number], [id number] #### [facility] [address] [place], [address] Platelet mean volume (Bld) [Entitic vol] 10.9 fL Normal 6.2-12.0 [facility] Comment on above: Performed By: #### L [id number], [id number], [id number] #### [facility] [address] [place], [address] Platelets (Bld) [#/Vol] 239 10*3/uL Normal 150-450 [facility] Comment on above: Performed By: #### L [id number], [id number], [id number] #### [facility] [address] [place], [address] RBC (Bld) [#/Vol] 4.59 10*6/uL Normal 4.2-5.4 [facility] Comment on above: Performed By: #### L [id number], [id number], [id number] #### [facility] [address] [place], [address] RDW SD 40.1 fl Normal 35.1-43.9 [facility] Comment on above: Performed By: #### L [id number], [id number], [id number] #### [facility] [address] [place], [address] WBC (Bld) [#/Vol] 6.5 10*3/uL Normal 4.4-11.0 [facility] Comment on above: Performed By: #### L 501.9520, L500.4050, L506.0400 #### [facility] [address] [place], [address] Carbon dioxide, total [Moles /volume] in Central venous bloodOrdered By: Oliver Junior on 03-12-2025 CO2 [Moles/Vol] 23.9 mmol/L 21.0-32.0 [facility] Chloride assayOrdered By: Lizz Junior on 03-12-2025 Chloride [Moles/Vol] 104 mmol/L 98-108 [facility] Comprehensive Metabolic Prof ilon 03-12-2025 Albumin [Mass/Vol] 4.4 g/dL Normal 3.5-5.0 [facility] Comment on above: Performed By: #### L 501.9520, L500.4050, L506.0400 #### [facility] [address] [place], [address] Albumin/Globulin [Mass ratio] 1.4 {ratio} Normal 0.9-2.4 [facility] Comment on above: Performed By: #### L 501.9520, L500.4050, L506.0400 #### [facility] [address] [place], [address] ALK PHOS 43 U/L Normal 35-104 [facility] Comment on above: Performed By: #### L 501.9520, L500.4050, L506.0400 #### [facility] [address] [place], [address] ALT [Catalytic activity/Vol] 16 U/L Normal <=34 [facility] Comment on above: Performed By: #### L 501.9520, L500.4050, L506.0400 #### [facility] [address] [place], [address] AST [Catalytic activity/Vol] 19 U/L Normal <=31 [facility] Comment on above: Performed By: #### L 501.9520, L500.4050, L506.0400 #### [facility] [address] [place], [address] Bilirubin [Mass/Vol] 0.21 mg/dL Normal 0.00-1.30 [facility] Comment on above: Performed By: #### L 501.9520, L500.4050, L506.0400 #### [facility] [address] [place], [address] BUN/CRE 12.3 RATIO Normal 10-20 [facility] Comment on above: Performed By: #### L 501.9520, L500.4050, L506.0400 #### [facility] [address] [place], [address] Calcium [Mass/Vol] 9.2 mg/dL Normal 7.6-11.0 [facility] Comment on above: Performed By: #### L 501.9520, L500.4050, L506.0400 #### [facility] [address] [place], [address] Chloride [Moles/Vol] 104 mmol/L Normal 98-108 [facility] Comment on above: Performed By: #### L 501.9520, L500.4050, L506.0400 #### [facility] [address] [place], [address] CO2 [Moles/Vol] 23.9 mmol/L Normal 21.0-32.0 [facility] Comment on above: Performed By: #### L 501.9520, L500.4050, L506.0400 #### [facility] [address] [place], [address] Creatinine [Mass/Vol] 0.90 mg/dL Normal 0.70-1.20 [facility] Comment on above: Performed By: #### L 501.9520, L500.4050, L506.0400 #### [facility] [address] [place], [address] GAP 11 Normal 5-15 [facility] Comment on above: Performed By: #### L 501.9520, L500.4050, L506.0400 #### [facility] [address] [place], [address] GFR/1.73 sq M.predicted among non-blacks MDRD (S/P/Bld) [Vol rate/Area] 81 mL/min/{1.73_m2} Normal >60 [facility] Comment on above: Result Comment: mL/m in/1.73m2 CKD-EPI Creatinine Equation (2020) Performed By: #### L 501.9520, L500.4050, L506.0400 #### [facility] [address] [place], [address] Globulin (S) [Mass/Vol] 3.3 g/dL Normal 2.2-4.2 [facility] Comment on above: Performed By: #### L 501.9520, L500.4050, L506.0400 #### [facility] [address] [place], [address] Glucose [Mass/Vol] 86 mg/dL Normal 70-99 [facility] Comment on above: Performed By: #### L 501.9520, L500.4050, L506.0400 #### [facility] [address] [place], [address] Potassium [Moles/Vol] 4.1 mmol/L Normal 3.3-5.1 [facility] Comment on above: Performed By: #### L 501.9520, L500.4050, L506.0400 #### [facility] [address] [place], [address] Sodium [Moles/Vol] 139 mmol/L Normal 133-145 [facility] Comment on above: Performed By: #### L 501.9520, L500.4050, L506.0400 #### [facility] [address] [place], [address] T PROT 7.7 g/dL Normal 5.9-8.4 [facility] Comment on above: Performed By: #### L 501.9520, L500.4050, L506.0400 #### [facility] [address] [place], [address] Urea nitrogen [Mass/Vol] 11 mg/dL Normal 4-19 [facility] Comment on above: Performed By: #### L 501.9520, L500.4050, L506.0400 #### [facility] [address] [place], [address] Eosinophil percentageOrdered By: Oliver Junior on 03-12-2025 Eosinophils/100 WBC (Bld) 4.6 % 0-5 [facility] Erythrocyte distribution wid th ratioOrdered By: [facility] on 03-12-2025 Erythrocyte distribution width (RBC) [Ratio] 13.2 % 11.6-14.6 [facility] Erythrocyte distribution wid th standard deviationOrdered By: [facility] on 03-12-2025 Erythrocyte distribution width (RBC) [Ratio] 40.1 fl 35.1-43.9 [facility] Glomerular filtration rate ( GFR) estimation/1.73 sq m using serum, plasma, or whole bOrdered By: [facility] on 03-12-2025 GFR/1.73 sq M.predicted among non-blacks MDRD (S/P/Bld) [Vol rate/Area] 81 mL/min/{1.73_m2} >60 [facility] Comment on above: mL/min/1.73m2 CKD-EP I Creatinine Equation (2020) Hematocrit Auto (Bld) [Volum e fraction]Ordered By: [facility] Blockoneyda on 03-12-2025 Hematocrit (Bld) [Volume fraction] 38.4 % 37-47 [facility] Hemoglobin measurementOrdere d By: amandagilmerdonis Junior on 03-12-2025 Hemoglobin (Bld) [Mass/Vol] 12.3 g/dL 12.0-15.0 [facility] Immature granulocytes/100 WB C Auto (Bld)Ordered By: marycarmen Junior on 03-12-2025 Immature granulocytes/100 WBC (Bld) 0.300 % 0.0-0.9 [facility] Comment on above: IG% - Immature Granu locytes (promyelocytes, myelocytes and metamyelocytes) > 1% indicates that a LEFT SHIFT is Present. Internal Medicine Office Vis david 03-12-2025 Internal Medicine Office Visit [facility] [address] [place] [address] [address] [place] [address] OFFICE VISIT Date of Service: 03/12/25 MR#: [id number] Acct: [id number] Name: ZULEYMA SPARROW Rep #: [id number] : 1980 Provider: Dr. Oliver mckeon MD Age/Sex: 44/F Location: [facility] Status: Signed Intake Vital Signs 10/10/24 08:15 12/26/24 11:22 03/12/25 14:49 Height 5 ft 3 in 5 ft 3 in 5 ft 3 in Weight: 187 lb BMI 33.1 BP 142/70 H Blood Pressure Location Lt brachial Position Sitting Respiration 18 Pulse 71 Pulse Source Monitor Temp 96.8 F L Temp Source Temporal Pulse Oximetry (%) 98 Oxygen Delivery Method room air Intake Visit Reasons: 4 M FU Chief Complaint: 4 M FU Is patient in pain?: No Allergies Fish Containing Products Allergy (Severe, Verified 03/12/25 14:46) THROAT SWELLING shellfish derived Allergy (Severe, Verified 03/12/25 14:46) THROAT SWELLING Egg Derived Allergy (Verified 03/12/25 14:46) Unknown milk (dairy) Allergy (Verified 03/12/25 14:46) Throat issues, GERD Medications ???Medication ???Instructions ???Recorded ???Confirmed ???Type L.acidoph,paracasei ,B.animalis 10 1 cell PO 04/01/21 03/12/25 Histo ry billion cell capsule (Digestive Advantage Advanced Probiotic) adapalene 0.1 % topical gel 1 applic topical QHS #45 grams 03/12/25 Rx amlodipine 10 mg tablet 10 mg PO DAILY #90 tabs 02/27/23 0 03/12/25 Rx valsartan 320 mg tablet 320 mg PO DAILY #90 tabs 02/27/23 03/12/25 Rx clindamycin phosphate 1 % topical 1 applic topical QAM AND QHS #60 06/09/24 03/12/25 Rx gel grams hydrochlorothiazide 25 mg tablet 25 mg PO QAM #90 tabs 06/10/2409/24 Rx levothyroxine 88 mcg tablet 88 mcg PO DAILY #90 tabs 08/18/24 03/12/25 Rx cholecalciferol (vitamin D3) 50 50 mcg PO QDAY 10/22/24 03/12/25 H istory mcg (2,000 unit) capsule multivitamin 1 tab PO QDAY 10/22/24 03/12/25 Hi story omeprazole 40 mg capsule,delayed 40 mg PO DAILY #90 caps 01/01/25 0 03/12/25 Rx release Have you fallen in the past year?: No PFSH Medical History Wears contact lenses Alcohol use Thyroid disease Migraine headache Dietary restriction Heartburn Former smoker Colon cancer screening Preventative health care Multiple allergies GERD (gastroesophageal reflux disease) Cough Irregular menses Vitamin deficiency Anxiety and depression Acne Lymphadenopathy of head and neck region Obesity (BMI 30-39.9) Abnormal EKG Anemia Thyroid nodule Hypersomnolence Hypertension Surgical History S/P wisdom tooth extraction S/P Family History Father Hypertension Thyroid disorder Colon polyps Grandfather Lung cancer Grandmother Cancer Mother Colon polyps Social History household members: spouse current occupational status: employed Smoking Status: Never smoker alcohol intake: never substance use type: does not use caffeine: Yes what type of physical activity do you participate in: aerobics and weight training frequency: 3-4 times per week seatbelt use: always do you feel safe at home: Yes additional social history: [facility] HPI Chief Complaint: 4 M FU Details: ZULEYMA SPARROW, is a 44 F who presents to the office today for follow-up of her chronic conditions. Also has some concerns. States that lately, she has felt more tired and like she has brain fog. The symptoms are new and progressively worsening. She denies, fever or change in bowel habit. Stays active and exercises. Snores. She is tired through the day but does not necessarily take naps. There was a recommendation for screening for sleep apnea years ago however, due to insurance concerns did not get it done. Currently at a BMI of 33.1. History of hypertension. History of hypertension, blood pressure today at 142/70 mmHg. She states that she is taking her medication consistently. As above, stays very active and pays close attention to diet as well. No chest pain, palpitation or shortness of breath. Other chronic medical conditions are stable. ROS Const Constitutional: Positive for fatigue; No body ache, chills, excessive sweating, fever(s), frequent falls, headache(s), snoring, weight change, sleep problems, abnormal sleep pattern or change in appetite Eyes Eyes: No blurry vision, change in vision, bulging eyes, floaters, eye pain or Light sensitivity ENT ENT: No abnormal hearing, ear or mastoid pain, tinnitus, balance problems, nosebleed/epistaxis , nasal congestion, headache(s), neck pain or sore throat Resp Respiratory: No cough, excessive phlegm pr (more content not included)... Normal [facility] - Chemistry and C hemistry - challengeOrdered By: Oliver Junior on 03-12-2025 AST [Catalytic activity/Vol] 19 U/L <32 [facility] MCV (mean corpuscular volume ) determinationOrdered By: Oliver Junior on 03-12-2025 MCV (RBC) [Entitic vol] 83.7 fL 81-99 [facility] Mean corpuscular hemoglobin (MCH) determinationOrdered By: Oliver Junior on 03-12-2025 MCH (RBC) [Entitic mass] 26.8 pg Low 27.0-32.0 [facility] Mean corpuscular hemoglobin concentration (MCHC) determinationOrdered By: Oliver Junior on 03-12-2025 MCHC (RBC) [Mass/Vol] 32.0 g/dL 32-36 [facility] Mean platelet volume determi nationOrdered By: Oliver Junior on 03-12-2025 Platelet mean volume (Bld) [Entitic vol] 10.9 fL 6.2-12.0 [facility] Monocyte percentageOrdered B y: Oliver Junior on 03-12-2025 Monocytes/100 WBC (Bld) 4.6 % 0-10 [facility] Neutrophil percentageOrdered By: Oliver Junior on 03-12-2025 Neutrophils/100 WBC (Bld) 64.9 % 47-70 [facility] Nucleated red blood cell per centageOrdered By: Oliver Junior on 03-12-2025 Nucleated RBC/100 WBC (Bld) [Ratio] 0 % 0-5 [facility] Platelet countOrdered By: Lizz Junior on 03-12-2025 Platelets (Bld) [#/Vol] 239 10*3/uL 150-450 [facility] Potassium measurement (mass/ volume)Ordered By: Oliver Junior on 03-12-2025 Potassium (Unsp spec) [Mass/Vol] 4.1 mmol/L 3.3-5.1 [facility] RBC Auto (Bld) [#/Vol]Ordere d By: Oliver Junior on 03-12-2025 RBC (Bld) [#/Vol] 4.59 10*6/uL 4.2-5.4 [facility] Serum creatinine measurement (mass/volume)Ordered By: Oliver Junior on 03-12-2025 Creatinine [Mass/Vol] 0.90 mg/dL 0.70-1.20 [facility] Serum globulin measurementOr dered By: Oliver Junior on 03-12-2025 Globulin (S) [Mass/Vol] 3.3 g/dL 2.2-4.2 [facility] Serum glucose measurement (m ass/volume)Ordered By: Oliver Junior on 03-12-2025 Glucose [Mass/Vol] 86 mg/dL 70-99 [facility] Serum or plasma alanine smith otransferase (ALT) measurementOrdered By: Oliver Junior on 03-12-2025 ALT [Catalytic activity/Vol] 16 U/L <35 [facility] Serum or plasma albumin saba urement (mass/volume)Ordered By: Oliver Junior on 03-12-2025 Albumin [Mass/Vol] 4.4 g/dL 3.5-5.0 [facility] Serum or plasma albumin/glob ulin mass ratioOrdered By: Oliver Junior on 03-12-2025 Albumin/Globulin [Mass ratio] 1.4 {ratio} 0.9-2.4 [facility] Serum or plasma alkaline torito sphatase measurementOrdered By: Oliver Junior 03-12-2025 ALP [Catalytic activity/Vol] 43 U/L 35-104 [facility] Serum or plasma calcium saba urement (mass/volume)Ordered By: Lizzamandajohn Umairlaraoneyda on 03-12-2025 Calcium [Mass/Vol] 9.2 mg/dL 7.6-11.0 [facility] Serum or plasma urea nitroge n measurement (mass/volume)Ordered By: Lizzmarycarmen Blocklaraoneyda on 03-12-2025 Urea nitrogen [Mass/Vol] 11 mg/dL 4-19 [facility] Sodium levelOrdered By: Dariel lopez Umairlaraoneyda on 03-12-2025 Sodium [Moles/Vol] 139 mmol/L 133-145 [facility] T4 Free Directon 03-12-2025 T4 FREE DIRECT 1.30 ng/dL Normal 0.76-1.46 [facility] Comment on above: Performed By: #### L 501.9520, L500.4050, L506.0400 #### [facility] [address] [place], [place], [id number] T4 freeOrdered By: Darielcristydonis Junior on 03-12-2025 Free T4 [Mass/Vol] 1.30 ng/dL 0.76-1.46 [facility] TSH DL <= 0.005 mIU/L QnOrde red By: Lizzamandacristydonis Junior on 03-12-2025 TSH Qn 3.110 uIU/mL 0.300-4.200 [facility] Thyroid Stim Hormone (TSH)on 03-12-2025 TSH 3.110 uIU/mL Normal 0.300-4.200 [facility] Comment on above: Performed By: #### L 501.9520, L500.4050, L506.0400 #### [facility] [address] [place], [place], [id number] Total proteinOrdered By: Yakov amador Umairlaraoneyda on 03-12-2025 Protein [Mass/Vol] 7.7 g/dL 5.9-8.4 [facility] White blood cell (WBC) count Ordered By: Oliver Junior on 03-12-2025 WBC (Bld) [#/Vol] 6.5 10*3/uL 4.4-11.0 [facility] Colonoscopy Reporton 025 Colonoscopy Report [facility] Medical Records Department [address] [place] [address] Colonoscopy Report MR#: [id number] Acct: [id number] Name: ZULEYMA SPARROW Rep #: [id number] : 1980 44 From: Jairon Vanegas DO PCP: Dr. Oliver Junior MD Status:REG [facility] [place] Patient Name: Zuleyma Sparrow Procedure Date: 12/26/2024 11:52 AM Date of : 1980 Age: 44 Procedure: Colonoscopy Indications: Screening for colorectal malignant neoplasm Providers: Jairon Vanegas DO Referring MD: Oliver Junior MD Medicines: Monitored Anesthesia Care Patient Profile: This is a 44 year old female. Refer to note in patient chart for documentation of history and physical. Last Colonoscopy: none. The patient's first colonoscopy is today. Complications: No immediate complications. Procedure: Pre-Anesthesia Assessment: - Prior to the procedure, a History and Physical was performed, and patient medications and allergies were reviewed. The patient is competent. The risks and benefits of the procedure and the sedation options and risks were discussed with the patient. All questions were answered and informed consent was obtained. Patient identification and proposed procedure were verified by the physician in the pre-procedure area. Mental Status Examination: alert and oriented. Airway Examination: normal oropharyngeal airway and neck mobility. Respiratory Examination: clear to auscultation. CV Examination: normal. ASA Grade Assessment: II - A patient with mild systemic disease. After reviewing the risks and benefits, the patient was deemed in satisfactory condition to undergo the procedure. The anesthesia plan was to use monitored anesthesia care (MAC). Immediately prior to administration of medications, the patient was re-assessed for adequacy to receive sedatives. The heart rate, respiratory rate, oxygen saturations, blood pressure, adequacy of pulmonary ventilation, and response to care were monitored throughout the procedure. The physical status of the patient was re-assessed after the procedure. After I obtained informed consent, the scope was passed under direct vision. Throughout the procedure, the patient's blood pressure, pulse, and oxygen saturations were monitored continuously. The Colonoscope was introduced through the anus and advanced to the cecum, identified by the appendiceal orifice, IC valve and transillumination. The colonoscopy was performed without difficulty. The patient tolerated the procedure well. The quality of the bowel preparation was adequate. The ileocecal valve, appendiceal orifice, and rectum were photographed. Scope In: 12:30:57 PM Scope Withdrawal Time 0 hours 8 minutes 44 seconds Scope Out: 12:43:43 PM Total Procedure Duration Time 0 hours 12 minutes 46 seconds Findings: The perianal and digital rectal examinations were normal. A 5 mm polyp was found in the descending colon. The polyp was sessile. The polyp was removed with a jumbo cold forceps. Resection and retrieval were complete. Verification of patient identification for the specimen was done. Estimated blood loss was minimal. The exam was otherwise without abnormality on direct and retroflexion views. The exam was otherwise without abnormality on direct and retroflexion views. Impression: - One 5 mm polyp in the descending colon, removed with a jumbo cold forceps. Resected and retrieved. - The examination was otherwise normal on direct and retroflexion views. - The examination was otherwise normal on direct and retroflexion views. Recommendation: - Discharge patient to home. - Resume previous diet. - Continue present medications. - Await pathology results. - Repeat colonoscopy in 5 years for surveillance. Procedure Code(s): --- Professional --- 55965, Colonoscopy, flexible; with biopsy, single or multiple CPT copyright 2021 [employer]. All rights reserved. The codes documented in this report are preliminary and upon wholesale account manager review may be revised to meet current compliance requirements. Jairon Vanegas DO 12/26/2024 12:54:00 PM This report has been signed electronically. Number of Addenda: 0 Note Initiated On: 12/26/2024 11:52 AM 12/26/24 1254 Date Jairon Vanegas DO Cosigner Signature: Date (if indicated) CC: Dr. Oliver Junior MD; Jairon Vanegas DO Date Dictated: 12/26/24 1152 Date Transcribed: Hogshead Head Matcher: MANUEL Signed [facility] MR/POSTOP.ANEon 12-26-2024 [facility]OP[facility] Medical Records Department [address] [place] [address] Anesthesia Postop Eval I 12/26/24 1255 MR#: [id number] Acct: [id number] Name: ZULEYMA SPARROW Rep #: [id number] : 1980 44 From: Nghia Clay PCP: Dr. Oliver Junior MD Status:REG [facility] [place] Y Race: C Location: [place] [address] Anesthesia: Postop Eval I Current Vital Signs Temperature: 97.4 F Pulse Rate: 83 Blood Pressure: 123/85 Respiratory Rate: 16 Pulse Ox: 98 Oxygen Delivery Method: Room Air Assessment Airway patent: Yes Spontaneous unlabored respirations: Yes Mental status: Awake nausea: No Vomiting: No Anesthesia Complication: Yes Anesthesia Complication Comment:: profuse movements d/t etomidate Fluid Hydration Crystalloid volume administer (ml): 40 Total IV fluid infused: 40 Progress Note Anesthesia document: Postop Eval 1 completed: Yes 12/26/24 1256 Date Nghia Nava Signature: Date CC: Signed [facility] [id number] 12-26-2024 MR/POSTOPAN2 [facility] Medical Records Department [address] [place] [address] Anesthesia Postop Eval II 12/26/24 1309 MR#: [id number] Acct: [id number] Name: ZULEYMA SPARROW Rep #: [id number] : 1980 44 From: Raúl Rodriguez MD PCP: Dr. Oliver Junior MD Status:REG [facility] Y Race: C Location: [address] Anesthesia Postop Eval I Sum Postop Eval Completion status Anesthesia document: Postop Eval 1 completed: Yes Anesthesia Postop Eval I Summary Anesthesia Postop Eval I Summary: Anesthesia Postop Eval I: Assessment Summary Airway patent Yes 12/26/24 12:56 [email or web address] Spontaneous unlabored Yes 12/26/24 12:56 [email or web address] respirations Mental status Awake 12/26/24 12:56 [email or web address] nausea No 12/26/24 12:56 [email or web address] Vomiting No 12/26/24 12:56 [email or web address] Anesthesia Postop Eval I: Fluid Summary Crystalloid volume administer 40 12/26/24 12:56 [email or web address] (ml) Colloids volume administered ( ml) Blood Product volume administered (ml) Total IV fluid infused 40 12/26/24 12:56 [email or web address] Anesthesia Postop Eval I: Summary Notes Anesthesia Complication Yes 12/26/24 12:56 [email or web address] Anesthesia Complication profuse movements 12/26/24 12:56 [email or web address] Comment: d/t etomidate Post-operative progress note Anesthesia: Postop Eval II Evaluation Mental status: Awake Pain Level: 0 nausea: No Vomiting: No 12/26/24 1309 Date Raúl Rodriguez MD Cosigner Signature: Date CC: Signed Normal [facility] ,Urineon 12-26-2024 Beta HCG ( test) Ql (U) Negative Normal [facility] Comment on above: Result Comment: Very dilute urine specimens, as indicated by a low specific gravity, may not contain mortician supplies sales representative levels of hCG. If is still suspected, a first morning urine specimen should be collected 48 hours later and tested. Performed By: #### L 501.9520, L500.4050, L506.0400 #### [facility] [place] [address] [place], [address] Surgery Specimen Level Mary 12-26-2024 Surgery Specimen Level IV ----- Patient Age/Sex Location Account Attending Physician ZULEYMA SPARROW 44/F EN [id number] Jairon Vanegas DO Specimen: [id number] Received: 12/26/24 Status: ANA Almaguer Num: [id number] Spec Type: COLON BX Subm Dr: Jairon Vanegas DO HEADMICHAEL OPERATION: Colonoscopy with biopsy PRE-OP DIAGNOSIS: Colon cancer screening TISSUE SUBMITTED: A- Descending colon polyp biopsy MICROSCOPIC DIAGNOSIS A. Descending colon, polyp, biopsy: * Hyperplastic polyp. MICROSCOPIC DESCRIPTION Slides are reviewed. GROSS DESCRIPTION A. Received in formalin in a container labeled with the patient's name, date of , and descending colon polyp BX is a 0.4 x 0.3 x 0.1 cm ferrer-pink fragment of mucosal tissue. Entirely submitted in A1. [facility] 12-29-2024 CPT:93347 Patient Age/Sex Location Account Attending Physician ZULEYMA SPARROW 44/F EN [id number] Jairon Vanegas DO Signed (signatur e on file) Dr. Lexus Saba MD 01/01/25 1544 Normal [facility] Comment on above: Performed By: #### L 501.9520, L500.4050, L506.0400 #### [facility] [address] [facility] [place], [address] Urine testOrdered By: Raúl Rodriguez on 12-26-2024 HCG ( test) Ql (U) Negative [facility] Comment on above: Very dilute urine sp ecimens, as indicated by a low specificgravity, may not contain mortician supplies sales representative levels of hCG. If is still suspected, a first morning urinespecimen should be collected 48 hours later and tested. MR/PATKiki 2024 MR[facility]PAT.[facility] [facility] Medical Records Department [address] [place] [address] PAT - Anesthesia 12/22/242015 MR#: [id number] Acct: [id number] Name: ZULEYMA SPARROW Rep #: [id number] : 1980 44 From: Mane Ring MD PCP: Dr. Oliver Junior MD Status:PRE [facility] [place] Y Race: C Location: EN Pre-Assessment Diagnosis/Proposed Procedure Planned Operative Procedure(s): Colonoscopy - Open Access Anesthesia History Anesthesia History - shirt bander: Anesthesia History - shirt bander Hx Hospitalization No 12/22/24 15:50 Any Problems With Anesthesia No 12/22/24 15:50 Cholinesterase deficiency No 12/22/24 15:50 You/Your Family Experience No 12/22/24 15:50 fever (hyperthermia) with Relationship Recent Exposure to Contagious Disease Does patient have nerve No 12/22/24 15:50 stimulator Patient instructed to have device shut off --Does patient have Pacemaker or ICD? When Was Last Pacemaker Check QUESTION #4 FULL TEXT: You/Your Family Experience fever (hyperthermia) with Anesthesia Last Oral Intake Last Oral intake: Last Oral Intake NPO since Meds taken in AM with sips of water? Meds patient instructed to take am of surgery PONV PONV - shirt bander: PONV - shirt bander Female Yes 12/22/24 15:50 HX of Motion Sickness Yes 12/22/24 15:50 HX of N/V After Surgery Yes 12/22/24 15:50 Non-Smoker Yes 12/22/24 15:50 Duration of Surgery greater No 12/22/24 15:50 than 60 minutes Number of Risk Factors 4 12/22/24 15:50 PONV Score Severe Risk 12/22/24 15:50 Height Weight Height Weight: Anesthesia: Height Weight Height 5 ft 3 in 10/22/24 11:16 Respiratory Assessment Respiratory Assessment - shirt bander: Respiratory Tract Infection Hx - shirt bander Hx Respiratory Tract Infection No 12/22/24 15:50 STOP Sleep Apnea STOP Sleep Apnea - shirt bander: STOP Sleep Apnea - shirt bander Hx Hypertension Yes 12/22/24 15:50 Hx Sleep Apnea No 12/22/24 15:50 CPAP BIPAP Do you snore loudly (louder No 12/22/24 15:50 than talking or can be heard Do you often feel tired/ No 12/22/24 15:50 fatigued/ sleepy during daytime? Has anyone observed you stop No 12/22/24 15:50 breathing during sleep? STOP Results Negative 12/22/24 15:50 QUESTION #5 FULL TEXT : Do you snore loudly (louder than talking or can be heard through closed doors)? 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 Use History - shirt bander: Tobacco Use History - shirt bander Tobacco Use Smoking Status Never smoker 12/22/24 15:50 Hx Tobacco Use No 12/22/24 15:50 Years Smoking Packs Smoked per Day Smoking Cessation Date was within the last 15 years Hx Smoking Cessation Date Hx Smoking Cessation Counseling Hematologic Medial History Hematologic Hx - shirt bander: Hematologic Medical Hx - dietetic technician Hx of Blood Transfusion No 12/22/24 15:50 Hx of Transfusion in last 3 No 12/22/24 15:50 Months Date of Last Transfusion (if within last 3 months) Ever experience any problems No 12/22/24 15:50 with transfusion(s)? Specify any problems Hx of Preganancy in last 3 No 12/22/24 15:50 Months Nurse Filling Out Transfusion JZOLLINGE 12/22/24 15:50 Questions: Date: 12/22/24 12/22/24 15:50 Time: 15:54 12/22/24 15:50 Patient unable to answer at this time (ie. confused, unrespo /Reproduct ion History /Reproduct marilee History - shirt bander: /Reproduct marilee Hx- shirt bander Hx Now No 12/22/24 15:50 Gestational Age (in weeks): EDC: Hx Hx Para Hx Section SAB No 12/22/24 15:50 [facility] Medical History (Updated 12/22/24 @ 15:50 by Lizbte Salter) Wears contact lenses Alcohol use Thyroid disease Migraine headache Dietary restriction Heartburn Former smoker Colon cancer screening Preventative health care Multiple allergies GERD (gastroesophageal reflux disease) Cough Irregular menses Vitamin deficiency Anxiety and depression Acne Lymphadenopathy of head and neck region Obesity (BMI 30-39.9) Abnormal EKG Anemia Thyroid nodule Hypersomnolence Hypertension Home Medications ???Medication ???Instructions ???Recorded ???Last Taken ???Type L.acidoph,paracasei ,B.animalis 10 1 cell PO 04/01/21 Unknown Histor y billion cell capsule (Digestive Advantage Advanced Probiotic) adapalene 0.1 % topical gel 1 applic topical QHS #45 grams Unknown Rx amlodipine 10 mg tablet 10 mg PO DAILY #90 tabs 02/27/23 U nknown Rx valsartan 320 mg tablet 320 mg PO DAILY #90 tabs 02/27/23 Unknown Rx clind (more content not included)... Normal [facility] DHEA Sulfateon 11-11-2024 DHEA SULFATE 146.0 ug/dL Normal 57.3-279.2 [facility] Comment on above: Order Comment: NN Performed By: #### L 820.9020, L500.4050, L506.0400 #### [facility] [address] [place], [address] PROLACTIN 4465on 11-11-2024 PROLACTIN 9.0 ng/mL Normal 4.8-33.4 [facility] Comment on above: Performed By: #### L 501.9520, L500.4050, L506.0400 #### [facility] [address] [place], [address] Sex Hormone-binding Globulin on 11-11-2024 SHBG 63.2 nmol/L Normal 24.6-122.0 [facility] Comment on above: Result Comment: Perf ormed at: - [facility] [address] [id number] Clinic Assistant: Antoine Li PhD, Phone: [phone] Performed at: - [facility] [address] [id number] Clinic Assistant: Lenard Weiss MD, Phone: [phone] Performed By: #### L 501.9520, L500.4050, L506.0400 #### [facility] [address] [place], [address] Testosterone, Total / Freeon 11-11-2024 TESTOSTER,FREE 0.64 ng/dL Normal 0.10-0.85 [facility] Comment on above: Order Comment: NN Performed By: #### L 501.9520, L500.4050, L506.0400 #### [facility] [address] [place], [address] TESTOSTER,TOTAL 28 ng/dL Normal 4-50 [facility] Comment on above: Order Comment: NN Performed By: #### L 501.9520, L500.4050, L506.0400 #### [facility] [address] [place], [address] TESTOSTERONE,%F 2.28 Normal 0.50-2.80 [facility] Comment on above: Order Comment: NN Performed By: #### L 501.9520, L500.4050, L506.0400 #### [facility] [address] [place], [address] Albumin to globulin ratioOrd ered By: Santos Solis on 11-06-2024 Albumin/Globulin [Mass ratio] 0.9 {ratio} 0.9-2.4 [facility] Bilirubin, totalOrdered By: Santos Solis on 11-06-2024 Bilirubin [Mass/Vol] 0.40 mg/dL 0.20-1.00 [facility] Comment on above: For patients on eltr ombopag therapy, use of Dimension [place] TBIL is not recommended. Blood urea nitrogen (BUN)/cr eatinine ratioOrdered By: Santos Solis on 11-06-2024 Urea nitrogen/Creatinine [Mass ratio] 14.5 mg/mg 10-20 [facility] CBC W/Diff, Automatedon Absolute Neut Normal 2.0-7.7 [facility] Comment on above: Order Comment: DR ALEXANDRIA MCKEON ORDERED CBCD, CMP LIPID SPIRAL GEAR GENERATOR WES ORDERED CMP, LIPID, A1C, HEMATOCRIT, TESTOSTERONE T F, ESTRADOL, LH, FSH, PROLACTIN, SHBG, DHEA Result Comment: ONLY NEEDED A1C Performed By: #### L 100.0100, L500.4050, L3300.1750, L3100.5400, L3100.5125, L500.4100, L506.0400, L3100.5310, L3100.5060, L501.9985, L501.9520, L3100.5170, L3300.1500 #### [facility] [address] [facility] [place], [place], [phone] HCT Normal 37-47 [facility] Comment on above: Order Comment: DR ALEXANDRIA MCKEON ORDERED CBCD, CMP LIPID SPIRAL GEAR GENERATOR WES ORDERED CMP, LIPID, A1C, HEMATOCRIT, TESTOSTERONE T F, ESTRADOL, LH, FSH, PROLACTIN, SHBG, DHEA Result Comment: ONLY NEEDED A1C Performed By: #### L 100.0100, L500.4050, L3300.1750, L3100.5400, L3100.5125, L500.4100, L506.0400, L3100.5310, L3100.5060, L501.9985, L501.9520, L3100.5170, L3300.1500 #### [facility] [address] [facility]. [place], [place], [phone] HGB Normal 12.0-15.0 [facility] Comment on above: Order Comment: DR ALEXANDRIA MCKEON ORDERED CBCD, CMP LIPID SPIRAL GEAR GENERATOR WES ORDERED CMP, LIPID, A1C, HEMATOCRIT, TESTOSTERONE T F, ESTRADOL, LH, FSH, PROLACTIN, SHBG, DHEA Result Comment: ONLY NEEDED A1C Performed By: #### L 100.0100, L500.4050, L3300.1750, L3100.5400, L3100.5125, L500.4100, L506.0400, L3100.5310, L3100.5060, L501.9985, L501.9520, L3100.5170, L3300.1500 #### [facility] [address] [place], [place], [phone] MCH Normal 27.0-32.0 [facility] Comment on above: Order Comment: DR ALEXANDRIA MCKEON ORDERED CBCD, CMP LIPID SPIRAL GEAR GENERATOR WES ORDERED CMP, LIPID, A1C, HEMATOCRIT, TESTOSTERONE T F, ESTRADOL, LH, FSH, PROLACTIN, SHBG, DHEA Result Comment: ONLY NEEDED A1C Performed By: #### L 100.0100, L500.4050, L3300.1750, L3100.5400, L3100.5125, L500.4100, L506.0400, L3100.5310, L3100.5060, L501.9985, L501.9520, L3100.5170, L3300.1500 #### [facility] [address] [facility] [place], [place], [phone] [facility] Normal 32-36 [facility] Comment on above: Order Comment: DR ALEXANDRIA MCKEON ORDERED CBCD, CMP LIPID SPIRAL GEAR GENERATOR WES ORDERED CMP, LIPID, A1C, HEMATOCRIT, TESTOSTERONE T F, ESTRADOL, LH, FSH, PROLACTIN, SHBG, DHEA Result Comment: ONLY NEEDED A1C Performed By: #### L 100.0100, L500.4050, L3300.1750, L3100.5400, L3100.5125, L500.4100, L506.0400, L3100.5310, L3100.5060, L501.9985, L501.9520, L3100.5170, L3300.1500 #### [facility] [address] [place], [place], [phone] (521) MCV Normal 81-99 [facility] Comment on above: Order Comment: DR ALEXANDRIA MCKEON ORDERED CBCD, CMP LIPID SPIRAL GEAR GENERATOR WES ORDERED CMP, LIPID, A1C, HEMATOCRIT, TESTOSTERONE T F, ESTRADOL, LH, FSH, PROLACTIN, SHBG, DHEA Result Comment: ONLY NEEDED A1C Performed By: #### L 100.0100, L500.4050, L3300.1750, L3100.5400, L3100.5125, L500.4100, L506.0400, L3100.5310, L3100.5060, L501.9985, L501.9520, L3100.5170, L3300.1500 #### [facility] [address] [facility] [facility] [place], [address] NEUT% Normal 47-70 [facility] Comment on above: Order Comment: DR ALEXANDRIA MCKEON ORDERED CBCD, CMP LIPID SPIRAL GEAR GENERATOR WES ORDERED CMP, LIPID, A1C, HEMATOCRIT, TESTOSTERONE T F, ESTRADOL, LH, FSH, PROLACTIN, SHBG, DHEA Result Comment: ONLY NEEDED A1C Performed By: #### L 100.0100, L500.4050, L3300.1750, L3100.5400, L3100.5125, L500.4100, L506.0400, L3100.5310, L3100.5060, L501.9985, L501.9520, L3100.5170, L3300.1500 #### [facility] [address] [place], [place], [phone] (232) PLT Normal 150-450 [facility] Comment on above: Order Comment: DR ALEXANDRIA MCKEON ORDERED CBCD, CMP LIPID SPIRAL GEAR GENERATOR WES ORDERED CMP, LIPID, A1C, HEMATOCRIT, TESTOSTERONE T F, ESTRADOL, LH, FSH, PROLACTIN, SHBG, DHEA Result Comment: ONLY NEEDED A1C Performed By: #### L 100.0100, L500.4050, L3300.1750, L3100.5400, L3100.5125, L500.4100, L506.0400, L3100.5310, L3100.5060, L501.9985, L501.9520, L3100.5170, L3300.1500 #### [facility] [address] [place], [place], [phone] (052) RBC Normal 4.2-5.4 [facility] Comment on above: Order Comment: DR ALEXANDRIA MCKEON ORDERED CBCD, CMP LIPID SPIRAL GEAR GENERATOR WSE ORDERED CMP, LIPID, A1C, HEMATOCRIT, TESTOSTERONE T F, ESTRADOL, LH, FSH, PROLACTIN, SHBG, DHEA Result Comment: ONLY NEEDED A1C Performed By: #### L 100.0100, L500.4050, L3300.1750, L3100.5400, L3100.5125, L500.4100, L506.0400, L3100.5310, L3100.5060, L501.9985, L501.9520, L3100.5170, L3300.1500 #### [facility] [address] [place], [place], [phone] ([address] RDW CV Normal 11.6-14.6 [facility] Comment on above: Order Comment: DR ALEXANDRIA MCKEON ORDERED CBCD, CMP LIPID SPIRAL GEAR GENERATOR WES ORDERED CMP, LIPID, A1C, HEMATOCRIT, TESTOSTERONE T F, ESTRADOL, LH, FSH, PROLACTIN, SHBG, DHEA Result Comment: ONLY NEEDED A1C Performed By: #### L 100.0100, L500.4050, L3300.1750, L3100.5400, L3100.5125, L500.4100, L506.0400, L3100.5310, L3100.5060, L501.9985, L501.9520, L3100.5170, L3300.1500 #### [facility] [address] [place], [address] RDW SD Normal 35.1-43.9 [facility] Comment on above: Order Comment: DR ALEXANDRIA MCKEON ORDERED CBCD, CMP LIPID SPIRAL GEAR GENERATOR WES ORDERED CMP, LIPID, A1C, HEMATOCRIT, TESTOSTERONE T F, ESTRADOL, LH, FSH, PROLACTIN, SHBG, DHEA Result Comment: ONLY NEEDED A1C Performed By: #### L 100.0100, L500.4050, L3300.1750, L3100.5400, L3100.5125, L500.4100, L506.0400, L3100.5310, L3100.5060, L501.9985, L501.9520, L3100.5170, L3300.1500 #### [facility] [address] [place], [place], [phone] WBC Normal 4.4-11.0 [facility] Comment on above: Order Comment: DR ALEXANDRIA MCKEON ORDERED CBCD, CMP LIPID ERYN SOLIS ORDERED CMP, LIPID, A1C, HEMATOCRIT, TESTOSTERONE T F, ESTRADOL, LH, FSH, PROLACTIN, SHBG, DHEA Result Comment: ONLY NEEDED A1C Performed By: #### L 100.0100, L500.4050, L3300.1750, L3100.5400, L3100.5125, L500.4100, L506.0400, L3100.5310, L3100.5060, L501.9985, L501.9520, L3100.5170, L3300.1500 #### [facility] [address] [facility]. [place], [place], [phone] Carbon dioxide measurementOr dered By: Santos Solis on 11-06-2024 CO2 [Moles/Vol] 27.0 mmol/L 21.0-32.0 [facility] Chloride measurementOrdered By: Santos Solis on 11-06-2024 Chloride [Moles/Vol] 106 mmol/L 98-107 [facility] Comprehensive Metabolic Prof ilon 11-06-2024 Albumin [Mass/Vol] 3.6 g/dL Normal 3.2-5.0 [facility] Comment on above: Order Comment: N Performed By: #### L 100.0100, L500.4050, L3300.1750, L3100.5400, L3100.5125, L500.4100, L506.0400, L3100.5310, L3100.5060, L501.9985, L501.9520, L3100.5170, L3300.1500 #### [facility] [address] [place], [address] Albumin/Globulin [Mass ratio] 0.9 {ratio} Normal 0.9-2.4 [facility] Comment on above: Order Comment: N Performed By: #### L 100.0100, L500.4050, L3300.1750, L3100.5400, L3100.5125, L500.4100, L506.0400, L3100.5310, L3100.5060, L501.9985, L501.9520, L3100.5170, L3300.1500 #### [facility] [address] [place], [address] ALK P 42 U/L Low 45-117 [facility] Comment on above: Order Comment: N Performed By: #### L 100.0100, L500.4050, L3300.1750, L3100.5400, L3100.5125, L500.4100, L506.0400, L3100.5310, L3100.5060, L501.9985, L501.9520, L3100.5170, L3300.1500 #### [facility] [address] [place], [address] ALT [Catalytic activity/Vol] 21 U/L Normal 13-56 [facility] Comment on above: Order Comment: N Performed By: #### L 100.0100, L500.4050, L3300.1750, L3100.5400, L3100.5125, L500.4100, L506.0400, L3100.5310, L3100.5060, L501.9985, L501.9520, L3100.5170, L3300.1500 #### [facility] [address] [place], [address] AST [Catalytic activity/Vol] 14 U/L Low 15-37 [facility] Comment on above: Order Comment: N Performed By: #### L 100.0100, L500.4050, L3300.1750, L3100.5400, L3100.5125, L500.4100, L506.0400, L3100.5310, L3100.5060, L501.9985, L501.9520, L3100.5170, L3300.1500 #### [facility] [address] [place], [address] Bilirubin [Mass/Vol] 0.40 mg/dL Normal 0.20-1.00 [facility] Comment on above: Order Comment: N Result Comment: For patients on eltrombopag therapy, use of Dimension [place] TBIL is not recommended. Performed By: #### L 100.0100, L500.4050, L3300.1750, L3100.5400, L3100.5125, L500.4100, L506.0400, L3100.5310, L3100.5060, L501.9985, L501.9520, L3100.5170, L3300.1500 #### [facility] [address] [place], [address] BUN/CRE 14.5 RATIO Normal 10-20 [facility] Comment on above: Order Comment: N Performed By: #### L 100.0100, L500.4050, L3300.1750, L3100.5400, L3100.5125, L500.4100, L506.0400, L3100.5310, L3100.5060, L501.9985, L501.9520, L3100.5170, L3300.1500 #### [facility] [address] [place], [address] CA,Total 8.6 mg/dL Normal 8.5-10.1 [facility] Comment on above: Order Comment: N Performed By: #### L 100.0100, L500.4050, L3300.1750, L3100.5400, L3100.5125, L500.4100, L506.0400, L3100.5310, L3100.5060, L501.9985, L501.9520, L3100.5170, L3300.1500 #### [facility] [address] [place], [address] Chloride [Moles/Vol] 106 mmol/L Normal 98-107 [facility] Comment on above: Order Comment: N Performed By: #### L 100.0100, L500.4050, L3300.1750, L3100.5400, L3100.5125, L500.4100, L506.0400, L3100.5310, L3100.5060, L501.9985, L501.9520, L3100.5170, L3300.1500 #### [facility] [address] [place], [place], [phone] (364) CO2 [Moles/Vol] 27.0 mmol/L Normal 21.0-32.0 [facility] Comment on above: Order Comment: N Performed By: #### L 100.0100, L500.4050, L3300.1750, L3100.5400, L3100.5125, L500.4100, L506.0400, L3100.5310, L3100.5060, L501.9985, L501.9520, L3100.5170, L3300.1500 #### [facility] [address] [facility] [address] [place], [place], [phone] (831) Creatinine [Mass/Vol] 0.83 mg/dL Normal 0.55-1.02 [facility] Comment on above: Order Comment: N Result Comment: The validity of the calculated GFR GFRAA in patients over 70 years has not been determined. Clinical correlation is essential. Performed By: #### L 100.0100, L500.4050, L3300.1750, L3100.5400, L3100.5125, L500.4100, L506.0400, L3100.5310, L3100.5060, L501.9985, L501.9520, L3100.5170, L3300.1500 #### [facility] [address] [place], [address] EST GFR - AA 96 mL/min Normal >60 [facility] Comment on above: Order Comment: N Result Comment: Afri can Cymraes GFR Calc Performed By: #### L 100.0100, L500.4050, L3300.1750, L3100.5400, L3100.5125, L500.4100, L506.0400, L3100.5310, L3100.5060, L501.9985, L501.9520, L3100.5170, L3300.1500 #### [facility] [address] [place], [place], [phone] (498) GAP 4 Low 5-15 [facility] Comment on above: Order Comment: N Performed By: #### L 100.0100, L500.4050, L3300.1750, L3100.5400, L3100.5125, L500.4100, L506.0400, L3100.5310, L3100.5060, L501.9985, L501.9520, L3100.5170, L3300.1500 #### [facility] [address] [place], [place], [phone] GFR/1.73 sq M.predicted among non-blacks MDRD (S/P/Bld) [Vol rate/Area] 79 mL/min/{1.73_m2} Normal >60 [facility] Comment on above: Order Comment: N Result Comment: Non- GFR Calc Performed By: #### L 100.0100, L500.4050, L3300.1750, L3100.5400, L3100.5125, L500.4100, L506.0400, L3100.5310, L3100.5060, L501.9985, L501.9520, L3100.5170, L3300.1500 #### [facility] [address] [place], [place], [phone] (827) Globulin (S) [Mass/Vol] 3.9 g/dL Normal 2.2-4.2 [facility] Comment on above: Order Comment: N Performed By: #### L 100.0100, L500.4050, L3300.1750, L3100.5400, L3100.5125, L500.4100, L506.0400, L3100.5310, L3100.5060, L501.9985, L501.9520, L3100.5170, L3300.1500 #### [facility] [address] [place], [address] Glucose [Mass/Vol] 81 mg/dL Normal 74-106 [facility] Comment on above: Order Comment: N Performed By: #### L 100.0100, L500.4050, L3300.1750, L3100.5400, L3100.5125, L500.4100, L506.0400, L3100.5310, L3100.5060, L501.9985, L501.9520, L3100.5170, L3300.1500 #### [facility] [address] [place], [address] Potassium [Moles/Vol] 3.7 mmol/L Normal 3.5-5.1 [facility] Comment on above: Order Comment: N Performed By: #### L 100.0100, L500.4050, L3300.1750, L3100.5400, L3100.5125, L500.4100, L506.0400, L3100.5310, L3100.5060, L501.9985, L501.9520, L3100.5170, L3300.1500 #### [facility] [address] [place], [address] Sodium [Moles/Vol] 137 mmol/L Normal 136-145 [facility] Comment on above: Order Comment: N Performed By: #### L 100.0100, L500.4050, L3300.1750, L3100.5400, L3100.5125, L500.4100, L506.0400, L3100.5310, L3100.5060, L501.9985, L501.9520, L3100.5170, L3300.1500 #### [facility] [address] [place], [place], [phone] T PROT 7.5 g/dL Normal 6.4-8.2 [facility] Comment on above: Order Comment: N Performed By: #### L 100.0100, L500.4050, L3300.1750, L3100.5400, L3100.5125, L500.4100, L506.0400, L3100.5310, L3100.5060, L501.9985, L501.9520, L3100.5170, L3300.1500 #### [facility] [address] [place], [address] Urea nitrogen [Mass/Vol] 12 mg/dL Normal 7-18 [facility] Comment on above: Order Comment: N Performed By: #### L 100.0100, L500.4050, L3300.1750, L3100.5400, L3100.5125, L500.4100, L506.0400, L3100.5310, L3100.5060, L501.9985, L501.9520, L3100.5170, L3300.1500 #### [facility] [address] [facility] [place], [place], [phone] Dehydroepiandrosterone sulfa te (DHEA-S) measurementOrdered By: Santos Solis on 11-06-2024 Dehydroepiandrosterone Sulfate 146.0 ug/dL 57.3-279.2 [facility] Direct serum free thyroxine (FT4) measurementOrdered By: Santos Solis on 11-06-2024 Free T4 [Mass/Vol] 1.16 ng/dL 0.76-1.46 [facility] Estimated glomerular filtrat ion rate (GFR) AmericanOrdered By: Santos Solis on 11-06-2024 Estimated GFR (MDRD) Amer 96 mL/min >60 [facility] Comment on above: GFR Calc Estradiolon 11-06-2024 ESTRADIOL 146.3 pg/mL Normal [facility] Comment on above: Result Comment: NORM AL REFERENCE RANGES FEMALE FOLLICULAR 21.4 - 164.8 pg/mL MID-CYCLE PEAK 49.9 - 367.2 pg/mL LUTEAL 40.2 - 259.0 pg/mL POST-MENOPAUSAL ON MHT <11.0 - 462.1 pg/mL NOT ON MHT <11.0 - 58.3 pg/mL MALE <11.0 - 52.5 pg/mL NOTE: [employer] HAS CONFIRMED THE DRUG FULVETRANT (FASLODEX) MAY CAUSE FALSELY ELEVATED ESTRADIOL RESULTS WHEN USING THIS TEST METHOD. IF PATIENT IS TAKING FULVESTRANT AN ALTERNATIVE METHOD SHOULD BE USED TO DETERMINE ESTRADIOL CONCENTRATION. Performed By: #### L 100.0100, L500.4050, L3300.1750, L3100.5400, L3100.5125, L500.4100, L506.0400, L3100.5310, L3100.5060, L501.9985, L501.9520, L3100.5170, L3300.1500 #### [facility] [address] [place], [address] Estradiol measurementOrdered By: Santos Solis on 11-06-2024 Estradiol (E2) Level 146.3 pg/mL [facility] Comment on above: NORMAL REFERENCE RAN GES FEMALE FOLLICULAR 21.4 - 164.8 pg/mL MID-CYCLE PEAK 49.9 - 367.2 pg/mL LUTEAL 40.2 - 259.0 pg/mL POST-MENOPAUSAL ON MHT <11.0 - 462.1 pg/mL NOT ON MHT <11.0 - 58.3 pg/mL MALE <11.0 - 52.5 pg/mL NOTE:[employer] HAS CONFIRMED THE DRUG FULVETRANT (FASLODEX) MAY CAUSE FALSELY ELEVATED ESTRADIOL RESULTS WHEN USING THIS TEST METHOD. IF PATIENT IS TAKING FULVESTRANT AN ALTERNATIVE METHOD SHOULD BE USED TO DETERMINE ESTRADIOL CONCENTRATION. Follicle Stimulating Hormone on 11-06-2024 FSH 3.3 mIU/mL Normal [facility] Comment on above: Result Comment: NORMAL REFERENCE RANGES FEMALE FOLLICULAR 2.3 - 12.6 mIU/mL MID-CYCLE PEAK 5.2 - 17.5 mIU/mL LUTEAL 1.7 - 12.9 mIU/mL POST-MENOPAUSAL ON MHT 5.9 - 72.8 mIU/mL NOT ON MHT 12.7 - 132.2 mlU/mL MALE 0.7 - 10.8 mIU/mL Performed By: #### L 100.0100, L500.4050, L3300.1750, L3100.5400, L3100.5125, L500.4100, L506.0400, L3100.5310, L3100.5060, L501.9985, L501.9520, L3100.5170, L3300.1500 #### [facility] [address] [place], [address] Follicle stimulating hormone (FSH) levelOrdered By: Santos Solis on 11-06-2024 Follicle Stimulating Hormone 3.3 mIU/mL [facility] Comment on above: NORMAL REFERENCE RAN GES FEMALE FOLLICULAR 2.3 - 12.6 mIU/mL MID-CYCLE PEAK 5.2 - 17.5 mIU/mL LUTEAL 1.7 - 12.9 mIU/mL POST-MENOPAUSAL ON MHT 5.9 - 72.8 mIU/mL NOT ON MHT 12.7 - 132.2 mlU/mL MALE 0.7 - 10.8 mIU/mL Glomerular filtration rate ( GFR) estimationOrdered By: Santos Solis on 11-06-2024 Estimated GFR (MDRD) Non-Af Amer 79 mL/min >60 [facility] Comment on above: Non- GFR Calc Glucose measurementOrdered B y: Santos Solis on 11-06-2024 Glucose [Mass/Vol] 81 mg/dL 74-106 [facility] Hemoglobin A1con 11-06-2024 HbA1c (Bld) [Mass fraction] 4.2 % Normal 3.8-5.6 [facility] Comment on above: Result Comment: Norm al < 5.7 % Prediabetic 5.7 - 6.4 % Diabetic >or= 6.5 % Please note range changes. Performed By: #### L 501.9520, L500.4050, L506.0400 #### [facility] [address] [place], [address] Hemoglobin A1c percentageOrd ered By: Santos Solis on 11-06-2024 HbA1c (Bld) [Mass fraction] 4.2 % 3.8-5.6 [facility] Comment on above: Normal < 5.7 % Predi abetic 5.7 - 6.4 % Diabetic >or= 6.5 % Please note range changes. High density lipoprotein (HD L) measurementOrdered By: Santos Solis on 11-06-2024 Cholesterol in HDL [Mass/Vol] 79 mg/dL >40 [facility] Comment on above: The drugs N-Acetylcy steine and Metamizole may falsely depress this assay. Reference Range HDL <40 mg/dL Low HDL Cholesterol HDL >or= 60 mg/dL High HDL Cholesterol Laboratory - Chemistry and C hemistry - challengeOrdered By: Santos Solis on 11-06-2024 AST [Catalytic activity/Vol] 14 U/L Low 15-37 [facility] Lipid Profileon 11-06-2024 Cholesterol [Mass/Vol] 222 mg/dL High 200 [facility] Comment on above: Result Comment: <200 mg/dL Desirable 200-240 mg/dL Borderline >240 mg/dL High Risk Performed By: #### L 100.0100, L500.4050, L3300.1750, L3100.5400, L3100.5125, L500.4100, L506.0400, L3100.5310, L3100.5060, L501.9985, L501.9520, L3100.5170, L3300.1500 #### [facility] [address] [place], [address] Cholesterol in HDL [Mass/Vol] 79 mg/dL Normal [facility] Comment on above: Result Comment: The drugs N-Acetylcysteine and Metamizole may falsely depress this assay. Reference Range HDL <40 mg/dL Low HDL Cholesterol HDL >or= 60 mg/dL High HDL Cholesterol Performed By: #### L 100.0100, L500.4050, L3300.1750, L3100.5400, L3100.5125, L500.4100, L506.0400, L3100.5310, L3100.5060, L501.9985, L501.9520, L3100.5170, L3300.1500 #### [facility] [address] [place], [place], [phone] ([phone]) Cholesterol in LDL [Mass/Vol] 131 mg/dL High 0-130 [facility] Comment on above: Performed By: #### L 100.0100, L500.4050, L3300.1750, L3100.5400, L3100.5125, L500.4100, L506.0400, L3100.5310, L3100.5060, L501.9985, L501.9520, L3100.5170, L3300.1500 #### [facility] [address] [facility]. [place], [place], [phone] ([phone]) Cholesterol in VLDL [Mass/Vol] 12 mg/dL Normal 5-40 [facility] Comment on above: Performed By: #### L 100.0100, L500.4050, L3300.1750, L3100.5400, L3100.5125, L500.4100, L506.0400, L3100.5310, L3100.5060, L501.9985, L501.9520, L3100.5170, L3300.1500 #### [facility] [address] [facility]. [place], [place], [phone] ([phone]) Triglyceride [Mass/Vol] 60 mg/dL Normal [facility] Comment on above: Result Comment: The drugs N-Acetylcysteine and Metamizole may falsely depress this assay. Serum Triglycerides Reference Interval Normal <150 mg/dL Borderline high 150 - 199 mg/dL High 200 - 499 mg/dL Very High > or = 500 mg/dL Performed By: #### L 100.0100, L500.4050, L3300.1750, L3100.5400, L3100.5125, L500.4100, L506.0400, L3100.5310, L3100.5060, L501.9985, L501.9520, L3100.5170, L3300.1500 #### [facility] [address] [place], [address] Low density lipoprotein (LDL ) cholesterol measurementOrdered By: Santos Solis on 11-06-2024 Cholesterol in LDL [Mass/Vol] 131 mg/dL High 0-130 [facility] Luteinizing Hormoneon 2024 LH 4.6 mIU/mL Normal [facility] Comment on above: Result Comment: NORMAL REFERENCE RANGES FEMALE FOLLICULAR 1.9 - 26.2 mIU/mL MID-CYCLE PEAK 22.8 - 76.1 mIU/mL LUTEAL 0.6 - 16.6 mIU/mL POST-MENOPAUSAL ON MHT 1.1 - 52.4 mIU/mL NOT ON MHT 8.6 - 61.8 mIU/mL MALE 1.2 - 10.6 mIU/mL Performed By: #### L 100.0100, L500.4050, L3300.1750, L3100.5400, L3100.5125, L500.4100, L506.0400, L3100.5310, L3100.5060, L501.9985, L501.9520, L3100.5170, L3300.1500 #### [facility] [address] [facility] [place], [address] Luteinizing hormone measurem entOrdered By: Santos Solis on 11-06-2024 Luteinizing Hormone 4.6 mIU/mL [facility] Comment on above: NORMAL REFERENCE RAN GES FEMALE FOLLICULAR 1.9 - 26.2 mIU/mL MID-CYCLE PEAK 22.8 - 76.1 mIU/mL LUTEAL 0.6 - 16.6 mIU/mL POST-MENOPAUSAL ON MHT 1.1 - 52.4 mIU/mL NOT ON MHT 8.6 - 61.8 mIU/mL MALE 1.2 - 10.6 mIU/mL Potassium measurementOrdered By: Santos Solis on 11-06-2024 Potassium [Moles/Vol] 3.7 mmol/L 3.5-5.1 [facility] Prolactin [Mass/Vol]Ordered By: Santos Solis on 11-06-2024 Prolactin 9.0 ng/mL 4.8-33.4 [facility] Serum anion gap measurementO rdered By: Santos Solis on 11-06-2024 Anion gap [Moles/Vol] 4 mmol/L Low 5-15 [facility] Serum globulin measurementOr dered By: Santos Solis on 11-06-2024 Globulin (S) [Mass/Vol] 3.9 g/dL 2.2-4.2 [facility] Serum or plasma alanine smith otransferase (ALT) measurementOrdered By: Santos Solis on 11-06-2024 ALT [Catalytic activity/Vol] 21 U/L 13-56 [facility] Serum or plasma albumin saba urement (mass/volume)Ordered By: Santos Solis on 11-06-2024 Albumin [Mass/Vol] 3.6 g/dL 3.2-5.0 [facility] Serum or plasma alkaline torito sphatase measurementOrdered By: Santos Solis on 11-06-2024 ALP [Catalytic activity/Vol] 42 U/L Low 45-117 [facility] Serum or plasma calcium saba urement (mass/volume)Ordered By: Santos Solis on 11-06-2024 Calcium [Mass/Vol] 8.6 mg/dL 8.5-10.1 [facility] Serum or plasma cholesterol measurement (mass/volume)Ordered By: Santos Solis on 11-06-2024 Cholesterol [Mass/Vol] 222 mg/dL High <200 [facility] Comment on above: <200 mg/dL Desirable 200-240 mg/dL Borderline >240 mg/dL High Risk Serum or plasma creatinine m easurement (mass/volume)Ordered By: Santos Solis on 11-06-2024 Creatinine [Mass/Vol] 0.83 mg/dL 0.55-1.02 [facility] Comment on above: The validity of the calculated GFR & GFRAA in patients over 70 years has not been determined. Clinical correlation is essential. Serum or plasma urea nitroge n measurement (mass/volume)Ordered By: Santos Solis on 11-06-2024 Urea nitrogen [Mass/Vol] 12 mg/dL 7-18 [facility] Sex hormone binding globulin [Moles/Vol]Ordered By: Santos Solis on 11-06-2024 Sex Hormone Binding Globulin 63.2 nmol/L 24.6-122.0 [facility] Comment on above: Performed at: [address] [id number] Director: Antoine Li PhD, Phone: [phone] at: - [facility] [address] [id number] Director: Lenard Weiss MD, Phone: [phone] Sodium levelOrdered By: Gaby Solis on 11-06-2024 Sodium [Moles/Vol] 137 mmol/L 136-145 [facility] T4 Free Directon 11-06-2024 T4 FREE DIRECT 1.16 ng/dL Normal 0.76-1.46 [facility] Comment on above: Order Comment: N N Performed By: #### L 100.0100, L500.4050, L3300.1750, L3100.5400, L3100.5125, L500.4100, L506.0400, L3100.5310, L3100.5060, L501.9985, L501.9520, L3100.5170, L3300.1500 #### [facility] [address] [place], [address] TSH QnOrdered By: Santos nieto on 11-06-2024 Thyroid Stimulating Hormone (TSH) 5.290 uIU/mL High 0.358-3.740 [facility] Testosterone Free [Mass/Vol] Ordered By: Santos Solis on 11-06-2024 Free Testosterone 0.64 ng/dL 0.10-0.85 [facility] Testosterone Free/Testostero ne.total [Mass fraction]Ordered By: Santos Solis on 11-06-2024 Percent Free Testosterone 2.28 % 0.50-2.80 [facility] Testosterone, totalOrdered B y: Santos Solis on 11-06-2024 Testosterone [Mass/Vol] 28 ng/dL 4-50 [facility] Thyroid Stim Hormone (TSH)on 11-06-2024 TSH 5.290 uIU/mL High 0.358-3.740 [facility] Comment on above: Order Comment: LIOR Call ADD ON TSH TO LABS DONE ON 11 06 2024 Performed By: #### L 501.9520, L500.4050, L506.0400 #### [facility] [address] [place], [address] Total proteinOrdered By: Alexey Solis on 11-06-2024 Protein [Mass/Vol] 7.5 g/dL 6.4-8.2 [facility] Triglycerides measurementOrd ered By: Santos Solis on 11-06-2024 Triglyceride [Mass/Vol] 60 mg/dL <199 [facility] Comment on above: The drugs N-Acetylcy steine and Metamizole may falsely depress this assay.Serum Triglycerides Reference Interval Normal <150 mg/dL Borderline high 150 - 199 mg/dL High 200 - 499 mg/dL Very High > or = 500 mg/dL Very low density lipoprotein (VLDL) cholesterol measurementOrdered By: Santos Solis on 11-06-2024 VLDL Cholesterol 12 mg/dL 5-40 [facility] Internal Medicine Office Vis iton 10-10-2024 Internal Medicine Office Visit [facility] [address] [place] [address] [place] [address] OFFICE VISIT Date of Service: 10/10/24 MR#: [id number] Acct: [id number] Name: ZULEYMA SPARROW Rep #: [id number] : 1980 Provider: Dr. Oliver mckeon MD Age/Sex: 43/F Location: [facility] Status: Signed Intake Vital Signs 05/08/24 08:06 07/30/24 14:48 10/10/24 08:15 Height 5 ft 3 in 5 ft 3 in 5 ft 3 in Weight: 190 lb BMI 33.6 BP 138/86 H Blood Pressure Location Lt brachial Position Sitting Respiration 16 Pulse 79 Pulse Source Monitor Temp 97.9 F Temp Source Temporal Pulse Oximetry (%) 99 Oxygen Delivery Method room air Intake Visit Reasons: 3 M FU Chief Complaint: yearly Pcb Designer Required: No Accompanied by: Self Is patient in pain?: No Allergies Fish Containing Products Allergy (Severe, Verified 10/10/24 08:06) THROAT SWELLING shellfish derived Allergy (Severe, Verified 10/10/24 08:06) THROAT SWELLING Egg Derived Allergy (Verified 10/10/24 08:06) Unknown milk (dairy) Allergy (Verified 10/10/24 08:06) NEEDS FOLLOW-UP Medications ???Medication ???Instructions ???Recorded ???Confirmed ???Type L.acidoph,paracasei ,B.animalis 10 cell PO 04/01/21 10/10/24 History billion cell capsule (Digestive Advantage Advanced Probiotic) adapalene 0.1 % topical gel 1 applic topical QHS #45 grams 02/15/22 10/10/24 Rx amlodipine 10 mg tablet 10 mg PO DAILY #90 tabs 02/27/23 10/10/24 Rx valsartan 320 mg tablet 320 mg PO DAILY #90 tabs 02/27/23 10/10/24 Rx clindamycin phosphate 1 % topical 1 applic topical QAM AND QHS #60 06/09/24 10/10/24 Rx gel grams hydrochlorothiazide 25 mg tablet 25 mg PO QAM #90 tabs 06/10/24 10/10/24 Rx levothyroxine 88 mcg tablet 88 mcg PO DAILY #90 tabs 08/18/24 10/10/24 Rx omeprazole 40 mg capsule,delayed 40 mg PO DAILY #90 caps 10/06/24 10/10/24 Rx release PFSH Medical History (Updated 10/10/24 @ 08:[address] Oliver Junior MD) Colon cancer screening Preventative health care Multiple allergies GERD (gastroesophageal reflux disease) Cough Irregular menses Vitamin deficiency Anxiety and depression Acne Lymphadenopathy of head and neck region Obesity (BMI 30-39.9) Abnormal EKG Anemia Thyroid nodule Hypersomnolence Hypertension Surgical History S/P wisdom tooth extraction S/P Family History Father Hypertension Thyroid disorder Grandfather Lung cancer Grandmother Cancer Social History household members: spouse Smoking Status: Never smoker alcohol intake: never substance use type: does not use caffeine: Yes what type of physical activity do you participate in: aerobics and weight training frequency: 3-4 times per week seatbelt use: always do you feel safe at home: Yes additional social history: Woody MONET HPI Chief Complaint: yearly Details: ZULEYMA SPRAROW, is a 43 F who presents to the office today for her yearly visit. No acute concerns at this time. Turns 44 in a few months, no history of colonoscopy. No significant family history of colon cancer. Mammogram is up-to-date. Follows up with [facility] and had a pelvic exam in July. Last Pap smear was in 2020. No tobacco or alcohol abuse. Stays active. History of hypertension, blood pressure today is at 138/86 however she states that she has not taken her medication today. ROS Const Constitutional: No body ache, chills, excessive sweating, fatigue, fever(s), frequent falls, headache(s), snoring, weakness or change in appetite Eyes Eyes: No blurry vision, change in vision, bulging eyes, floaters, visual disturbances, eye pain or Light sensitivity ENT ENT: No abnormal hearing, ear or mastoid pain, tinnitus, balance problems, nosebleed/epistaxis , nasal congestion, headache(s), neck pain or sore throat Resp Respiratory: No cough, excessive phlegm production, pain on inspiration, shortness of breath, snoring or wheezing Cardio Cardiology: No chest pain at rest, chest pain with exertion, excessive sweating, dyspnea on exertion, lightheadedness, orthopnea or palpitations Gastro GI: No abdominal pain, change in bowel habits, constipation, cramping, diarrhea, nausea/dyspepsia or vomiting Genitourinary-Femal e: No burning urination, painful urination, urinary incontinence, urinary frequency, suprapubic fullness or side pain Musc Musculoskeletal: No abnormal gait, joint pain, back pain, limited range of motion, muscle cramps, muscle weakness, neck pain or numbness Skin Skin: No dry skin, redness, excessive hair growth, yellowing of the eye, lesions, itchy eyes, rash or wounds Neuro Neurology: No abnormal gait, abnormal he (more content not included)... Normal [facility] SCRN MAMM (CAD)W/JUANPABLO BILATo n 08-12-2024 SCRN MAMM (CAD)W/JUANPABLO BILAT [facility] Imaging Services [address] [place] [address] SCRN MAMM (CAD)W/JUANPABLO BILAT MR#: [id number] Acct: [id number] Name: ZULEYMA SPARROW Rep #: [id number] : 1980 F 43 From: Tom hager MD PCP: Dr. Oliver Junior MD Status: [facility] Study: SCRN MAMM (CAD)W/JUANPABLO BILAT Date of Exam: 08/01 11/24 Exam# [id number] Ordering Dr: Alix Cain SPIRAL GEAR GENERATOR-C -[id number] MAMMOGRAPHY - BILATERAL SCREENING REASON FOR EXAM: Female, 43 years old. Routine annual screening examination. PERTINENT HISTORY: Aunt with breast cancer. TECHNIQUE: Digital bilateral breast juanpablo (3D mammographic acquisition) in the CC and MLO projections. 2-D mediolateral oblique (MLO) and craniocaudad (CC) views of both breasts were obtained. CAD: Full Field Digital Mammography with Computer Added Detection was performed. COMPARISON: Comparison is made with prior study dated August 03, 2023 and April 11, 2021. FINDINGS: Breast Composition: There are scattered areas of fibroglandular density. There are no dominant masses or suspicious calcifications. Stable well-defined 4 mm nodule in the anterior upper lateral aspect of the right breast suggestive of a small fat-containing lymph node. No other significant abnormalities are identified. There has been no significant change since the prior study. BI/SCRN MAMM (CAD)W/JUANPABLO BILAT IMPRESSION: Stable bilateral screening mammogram. Yearly follow-up mammogram recommended. (A) ASSESSMENT CATEGORY: BIRADS Category 2: Benign. A letter regarding these results will be sent to the patient by the facility within 30 days. Approximately 10% of breast cancers are not detected by mammography. A normal mammogram should not delay biopsy of a clinically suspicious abnormality. [id number] Electronically Signed: Tom Marx MD at 13:44 EST Reading Location ID and State: [facility] / [place] , Service support , CC: BRADFORD Cain; Dr. Oliver Junior MD; WILDER Hogshead Head Matcher: Signed Normal [facility] Plastic Top Assembler Office Visit Reporton 07-30-2024 Plastic Top Assembler Office Visit Report [facility] [address], [address] [place] [address] OFFICE VISIT Date of Service: 07/30/24 MR#: [id number] Acct: [id number] Name: ZULEYMA SPARROW Rep #: [id number] : 1980 Provider: BRADFORD sifuentes Age/Sex: 43/F Location: [facility] Status: Signed Intake Vital Signs 05/08/24 08:06 07/30/24 14:42 07/30/24 14:48 Height 5 ft 3 in 5 ft 3 in 5 ft 3 in Weight: 182 lb 177 lb 4 oz BMI 32.2 31.4 BP 144/88 H 134/86 H Blood Pressure Location Lt brachial Position Sitting Respiration 17 Pulse 60 Pulse Source Monitor Temp 96.8 F L Pulse Oximetry (%) 98 Oxygen Delivery Method room air Comment pt states she has not taken BP meds Intake Visit Reasons: 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) Chief Complaint: Annual Pcb Designer Required: No Is patient in pain?: No Allergies Fish Containing Products Allergy (Severe, Verified 07/30/24 14:50) THROAT SWELLING shellfish derived Allergy (Severe, Verified 07/30/24 14:50) THROAT SWELLING Egg Derived Allergy (Verified 07/30/24 14:50) Unknown milk (dairy) Allergy (Verified 07/30/24 14:50) NEEDS FOLLOW-UP Medications ???Medication ???Instructions ???Recorded ???Confirmed ???Type L.acidoph, paracasei,B. lactis 10 cell PO 04/01/21 07/30/24 History billion cell capsule (Digestive Advantage Advanced Probiotic) adapalene 0.1 % topical gel 1 applic topical QHS #45 grams 02/15/22 07/30/24 Rx amlodipine 10 mg tablet 10 mg PO DAILY #90 tabs 02/27/23 07/30/24 Rx valsartan 320 mg tablet 320 mg PO DAILY #90 tabs 02/27/23 07/30/24 Rx clindamycin phosphate 1 % topical 1 applic topical QAM AND QHS #60 06/09/24 07/30/24 Rx gel grams hydrochlorothiazide 25 mg tablet 25 mg PO QAM #90 tabs 06/10/24 07/30/24 Rx omeprazole 40 mg capsule,delayed 40 mg PO DAILY #90 caps 07/02/24 07/30/24 Rx release Is last menstrual period known: Yes Last Menstrual Period: 07/08/24 Post menopausal: No Patient : No : No PFSH Medical History Multiple allergies GERD (gastroesophageal reflux disease) Cough Irregular menses Vitamin deficiency Anxiety and depression Acne Lymphadenopathy of head and neck region Obesity (BMI 30-39.9) Abnormal EKG Anemia Thyroid nodule Hypersomnolence Hypertension Surgical History S/P wisdom tooth extraction S/P Family History Father Hypertension Thyroid disorder Grandfather Lung cancer Grandmother Cancer Social History (Updated 07/30/24 @ 14:53 by Nighat Machuca NP, SPIRAL GEAR GENERATOR-C) household members: spouse Smoking Status: Never smoker alcohol intake: never substance use type: does not use caffeine: Yes what type of physical activity do you participate in: aerobics and weight training frequency: 3-4 times per week seatbelt use: always do you feel safe at home: Yes additional social history: Woody History 3 Elective abortions Hx Para 3 Spontaneous abortions Hx # Term Pregnancies Ectopic pregnancies Hx # Pregnancies Multiple births # of living children Past Pregnancies Del. Date Name GA/Weeks Outcome Route Bth Weight Infant Gen Labor Lgth Anesthesia Del Locatn Provider FOB Unknown Lizzy Unknown Lucianna Unknown Audrina HPI Encounter for routine gynecological examination Details: ZULEYMA SPARROW is a 43 year old who presents for annual exam. Denies concerns. Has little sore area on left breast, has healed just still darker in color Last PAP: 2025 History of abnormal PAP: no Last mammogram: 08/2023 History of abnormal mammogram: no Colon cancer screening: age 44 Other preventative health care screenings: [place] Female Reproductive History Last Menstrual Period: 07/08/24 Cycle Length: 21-35 Questions: metorrhagia: No, sexually active: Yes, dyspareunia: No and PCB: No ROS Const Constitutional: Denies fatigue, weight gain or weight loss Cardio Card: Denies chest pain Resp Resp: Denies cough or dyspnea on exertion GI GI: Denies abdominal pain, bloating, change in stool character, constipation or vomiting : Reports as per HPI; Denies difficulty voiding, pelvic pain, urinary frequency, urinary incontinence, urinary urgency, vaginal discharge or vaginal pruritus Exam Const General: cooperative, healthy appearing, no acute distress and well developed Orientation: alert, oriented to person and oriented to place HENNC Head: normal to inspection Neck Neck: normal visual inspection Thyroid: thyroid normal Lymphatic: no lymphadenopathy noted Chest Breast inspection: normal inspection of the breasts, normal inspecti (more content not included)... Normal [facility] Comprehensive Metabolic Prof ilon 05-08-2024 Albumin [Mass/Vol] 3.7 g/dL Normal 3.2-5.0 [facility] Comment on above: Performed By: #### L 501.8566, L500.4050, L506.0400 #### [facility] [address] [place], [address] Albumin/Globulin [Mass ratio] 1.0 {ratio} Normal 0.9-2.4 [facility] Comment on above: Performed By: #### L 501.9520, L500.4050, L506.0400 #### [facility] [address] [place], [address] ALK P 44 U/L Low 45-117 [facility] Comment on above: Performed By: #### L 501.9520, L500.4050, L506.0400 #### [facility] [address] [place], [address] ALT [Catalytic activity/Vol] 22 U/L Normal 13-56 [facility] Comment on above: Performed By: #### L 501.9520, L500.4050, L506.0400 #### [facility] [address] [place], [address] AST [Catalytic activity/Vol] 15 U/L Normal 15-37 [facility] Comment on above: Performed By: #### L 501.9520, L500.4050, L506.0400 #### [facility] [address] [place], [address] Bilirubin [Mass/Vol] 0.60 mg/dL Normal 0.20-1.00 [facility] Comment on above: Result Comment: For patients on eltrombopag therapy, use of Dimension [place] TBIL is not recommended. Performed By: #### L 501.9520, L500.4050, L506.0400 #### [facility] [address] [place], [address] BUN/CRE 11.1 RATIO Normal 10-20 [facility] Comment on above: Performed By: #### L 501.9520, L500.4050, L506.0400 #### [facility] [address] [place], [address] CA,Total 8.8 mg/dL Normal 8.5-10.1 [facility] Comment on above: Performed By: #### L 501.9520, L500.4050, L506.0400 #### [facility] [address] [place], [address] Chloride [Moles/Vol] 106 mmol/L Normal 98-107 [facility] Comment on above: Performed By: #### L 501.9520, L500.4050, L506.0400 #### [facility] [address] [place], [address] CO2 [Moles/Vol] 27.0 mmol/L Normal 21.0-32.0 [facility] Comment on above: Performed By: #### L 501.9520, L500.4050, L506.0400 #### [facility] [address] [place], [address] Creatinine [Mass/Vol] 0.81 mg/dL Normal 0.55-1.02 [facility] Comment on above: Result Comment: The validity of the calculated GFR GFRAA in patients over 70 years has not been determined. Clinical correlation is essential. Performed By: #### L 501.9520, L500.4050, L506.0400 #### [facility] [address] [place], [address] EST GFR - AA 99 mL/min Normal >60 [facility] Comment on above: Result Comment: Afri can Cymraes GFR Calc Performed By: #### L 501.9520, L500.4050, L506.0400 #### [facility] [address] [place], [address] GAP 4 Low 5-15 [facility] Comment on above: Performed By: #### L 501.9520, L500.4050, L506.0400 #### [facility] [address] [place], [address] GFR/1.73 sq M.predicted among non-blacks MDRD (S/P/Bld) [Vol rate/Area] 82 mL/min/{1.73_m2} Normal >60 [facility] Comment on above: Result Comment: Non- GFR Calc Performed By: #### L 501.9520, L500.4050, L506.0400 #### [facility] [address] [place], [address] Globulin (S) [Mass/Vol] 3.8 g/dL Normal 2.2-4.2 [facility] Comment on above: Performed By: #### L 501.9520, L500.4050, L506.0400 #### [facility] [address] [place], [address] Glucose [Mass/Vol] 83 mg/dL Normal 74-106 [facility] Comment on above: Performed By: #### L 501.9520, L500.4050, L506.0400 #### [facility] [address] [place], [address] Potassium [Moles/Vol] 4.2 mmol/L Normal 3.5-5.1 [facility] Comment on above: Performed By: #### L 501.9520, L500.4050, L506.0400 #### [facility] [address] [place], [address] Sodium [Moles/Vol] 137 mmol/L Normal 136-145 [facility] Comment on above: Performed By: #### L [id number], [id number], L506.0400 #### [facility] [address] [place], [address] T PROT 7.5 g/dL Normal 6.4-8.2 [facility] Comment on above: Performed By: #### L [id number], [id number], L506.0400 #### [facility] [address] [place], [address] Urea nitrogen [Mass/Vol] 9 mg/dL Normal 7-18 [facility] Comment on above: Performed By: #### L [id number], [id number], L506.0400 #### [facility] [address] [place], [place], [address] Internal Medicine Office Vis iton 05-08-2024 Internal Medicine Office Visit [facility] [address] [place], [place] [address] OFFICE VISIT Date of Service: 05/08/24 MR#: [id number] Acct: [id number] Name: ZULEYMA SPARROW Rep #: [id number] : 1980 Provider: BRADFORD trammell Age/Sex: 43/F Location: [facility] Status: Signed Intake Vital Signs 01/11/24 09:31 05/08/24 08:06 Height 5 ft 3 in 5 ft 3 in Weight: 189 lb 182 lb BMI 33.5 32.2 BP 122/80 H 144/88 H Blood Pressure Location Lt brachial Lt brachial Position Sitting Sitting Respiration 16 17 Pulse 85 60 Pulse Source Monitor Monitor Temp 97.6 F L 96.8 F L Temp Source Temporal Temporal Pulse Oximetry (%) 98 98 Oxygen Delivery Method room air room air Comment pt states she has not taken BP meds Intake Visit Reasons: acute - fu Chief Complaint: Follow-up chronic conditions Is patient in pain?: No Allergies Fish Containing Products Allergy (Severe, Verified 05/08/24 08:01) THROAT SWELLING shellfish derived Allergy (Severe, Verified 05/08/24 08:01) THROAT SWELLING Egg Derived Allergy (Verified 05/08/24 08:01) Unknown milk (dairy) Allergy (Verified 05/08/24 08:01) NEEDS FOLLOW-UP Medications ???Medication ???Instructions ???Recorded ???Confirmed ???Type L.acidoph, paracasei,B. lactis 10 cell PO 04/01/21 05/08/24 History billion cell capsule (Digestive Advantage Advanced Probiotic) adapalene 0.1 % topical gel 1 applic topical QHS #45 grams 02/15/22 05/08/24 Rx hydrochlorothiazide 25 mg tablet 25 mg PO QAM #90 tabs 05/25/22 05/08/24 Rx amlodipine 10 mg tablet 10 mg PO DAILY #90 tabs 02/27/23 05/08/24 Rx valsartan 320 mg tablet 320 mg PO DAILY #90 tabs 02/27/23 05/08/24 Rx clindamycin phosphate 1 % topical 1 applic topical QAM AND QHS #60 01/11/24 05/08/24 Rx gel grams omeprazole 40 mg capsule,delayed 40 mg PO DAILY #90 caps 03/26/24 05/08/24 Rx release PFSH Medical History Multiple allergies GERD (gastroesophageal reflux disease) Cough Irregular menses Vitamin deficiency Anxiety and depression Acne Lymphadenopathy of head and neck region Obesity (BMI 30-39.9) Abnormal EKG Anemia Thyroid nodule Hypersomnolence Hypertension Surgical History S/P wisdom tooth extraction S/P Family History Father Hypertension Thyroid disorder Grandfather Lung cancer Grandmother Cancer Social History Smoking Status: Never smoker alcohol intake: never substance use type: does not use caffeine: Yes what type of physical activity do you participate in: aerobics and weight training frequency: 3-4 times per week seatbelt use: always do you feel safe at home: Yes additional social history: HPI HPI Chief Complaint: Follow-up chronic conditions Details: ZULEYMA SPARROW, is a 43 F who presents to the office today for routine f/u. She does not have any concerns. She does not smoke. She tries to eat healthy and eat active. She is due for mammogram in [facility], cervical cancer screening, and skin cancer screening. HTN: BP at home: does not check routinely She did not take her medication this morning Denies chest pain, pressure, headaches, visions changes She does try to monitor her sodium intake Allergies: She did f/u with ENT, states allergy testing was performed and was mild. She was offered weekly allergy injections but declines at this time. Her sx include sneezing, triggered by mowing the grass but reports grass allergy testing was negative. Also reports runny nose and itching red eyes. She has tried OTC medications without relief. She does still use flonase. At her last visit in December 2023, patient reported increasing GERD symptoms which included burning to esophagus, belching, burping, feeling of something stuck in throat. She was prescribed omeprazole 40 mg which she states worked significantly. Insurance did deny this and she tried [id number] omeprazole and reports it did not work as well. She now has a coupon card for omeprazole 40 mg prescription and states it continues to work well for her. She does not feel that she has dietary factors such as consumption of highly acidic foods, caffeine, carbonated, spicy foods routinely. She does sit upright 30 minutes after meals. She did report that she was unaware that she could not take omeprazole and Synthroid together and to combine these until the pharmacist told her otherwise. She feels that her current omeprazole prescription is working well to control her symptoms and she has not required breakthrough medications. ROS Const Constitutional: No body ache, chills, excessive swea (more content not included)... Normal [facility] T4 Free Directon 05-08-2024 T4 FREE DIRECT 1.21 ng/dL Normal 0.76-1.46 [facility] Comment on above: Performed By: #### L 501.9520, L500.4050, L506.0400 #### [facility] [address] [place], [address] Thyroid Stim Hormone (TSH)on 05-08-2024 TSH 3.34 uIU/mL Normal 0.358-3.74 [facility] Comment on above: Performed By: #### L [id number], L500.4050, L506.0400 #### [facility] [address] [place], [address] Absolute lymphocyte countOrd ered By: Oliver Junior on 01-11-2024 Lymphocytes Auto (Unsp spec) [#/Vol] 1.68 10*3/uL 0.83-4.51 [facility] Automated lymphocyte count a s percentage of total leukocytesOrdered By: Oliver Junior on 01-11-2024 Lymphocytes/100 WBC Auto (Unsp spec) 20.9 % 19-41 [facility] Basophil percentageOrdered B y: Oliver Junior on 01-11-2024 Basophils/100 WBC (Bld) 1.0 % 0-1 [facility] Bilirubin [Mass/Vol] 0.60 mg/dL 0.20-1.00 [facility] Comment on above: For patients on eltr ombopag therapy, use of Dimension [place] TBIL is not recommended. Chloride [Moles/Vol] 108 mmol/L 98-107 [facility] Eosinophils/100 WBC (Bld) 6.6 % 0-5 [facility] Glucose [Mass/Vol] 85 mg/dL 74-106 [facility] Hemoglobin (Bld) [Mass/Vol] 14.4 g/dL 12.0-15.0 [facility] Monocytes/100 WBC (Bld) 3.0 % 0-10 [facility] Neutrophils (Bld) [#/Vol] 5.5 10*3/uL 2.0-7.7 [facility] Neutrophils/100 WBC (Bld) 68.3 % 47-70 [facility] Potassium [Moles/Vol] 4.1 mmol/L 3.5-5.1 [facility] Protein [Mass/Vol] 7.7 g/dL 6.4-8.2 [facility] Sodium [Moles/Vol] 138 mmol/L 136-145 [facility] WBC (Bld) [#/Vol] 8.0 10*3/uL 4.4-11.0 [facility] Determination of erythrocyte mean corpuscular volume (MCV)Ordered By: Oliver Junior on 01-11-2024 MCV (RBC) [Entitic vol] 89.3 fL 81-99 [facility] Erythrocyte distribution wid th ratioOrdered By: Oliver Junior on 01-11-2024 Erythrocyte distribution width (RBC) [Ratio] 12.9 % 11.6-14.6 [facility] Erythrocyte distribution wid th standard deviationOrdered By: Oliver Junior on 01-11-2024 Erythrocyte distribution width (RBC) [Entitic vol] 41.7 fL 35.1-43.9 [facility] Hematocrit Auto (Bld) [Volum e fraction]Ordered By: Oliver Junior on 01-11-2024 Hematocrit (Bld) [Volume fraction] 43.3 % 37-47 [facility] Immature granulocytes/100 WB C Auto (Bld)Ordered By: marycarmen Junior on 01-11-2024 Immature granulocytes/100 WBC (Bld) 0.200 % 0.0-0.9 [facility] Comment on above: IG% - Immature Granu locytes (promyelocytes, myelocytes and metamyelocytes) > 1% indicates that a LEFT SHIFT is Present. Laboratory - Chemistry and C hemistry - challengeOrdered By: amandagilmerdonis Junior on 01-11-2024 Albumin/Globulin [Mass ratio] 0.9 {ratio} 0.9-2.4 [facility] ALP [Catalytic activity/Vol] 40 U/L 45-117 [facility] ALT [Catalytic activity/Vol] 28 U/L 13-56 [facility] CO2 [Moles/Vol] 27.0 mmol/L 21.0-32.0 [facility] Globulin (S) [Mass/Vol] 4.0 g/dL 2.2-4.2 [facility] Urea nitrogen/Creatinine [Mass ratio] 12.9 mg/mg 10-20 [facility] - Hematology and Cell countsOrdered By: Oliver Junior on 01-11-2024 MCH (RBC) [Entitic mass] 29.7 pg 27.0-32.0 [facility] MCHC (RBC) [Mass/Vol] 33.3 g/dL 32-36 [facility] Nucleated RBC/100 WBC (Bld) [Ratio] 0 % 0-5 [facility] Platelet mean volume (Bld) [Entitic vol] 11.2 fL 6.2-12.0 [facility] Platelets (Bld) [#/Vol] 217 10*3/uL 150-450 [facility] No Panel InformationOrdered By: Oliver Junior on 01-11-2024 Estimated GFR (MDRD) Amer 93 mL/min >60 [facility] Comment on above: GFR Calc Estimated GFR (MDRD) Non-Af Amer 77 mL/min >60 [facility] Comment on above: Non- GFR Calc RBC Auto (Bld) [#/Vol]Ordere d By: Oliver Junior on 01-11-2024 RBC (Bld) [#/Vol] 4.85 10*6/uL 4.2-5.4 [facility] Serum or plasma calcium saba urement (mass/volume)Ordered By: Oliver Junior on 01-11-2024 Calcium [Mass/Vol] 9.1 mg/dL 8.5-10.1 [facility] Serum or plasma creatinine m easurement (mass/volume)Ordered By: Oliver Junior on 01-11-2024 Creatinine [Mass/Vol] 0.85 mg/dL 0.55-1.02 [facility] Comment on above: The validity of the calculated GFR & GFRAA in patients over 70 years has not been determined. Clinical correlation is essential. Serum or plasma urea nitroge n measurement (mass/volume)Ordered By: Oliver Junior on 01-11-2024 Urea nitrogen [Mass/Vol] 11 mg/dL 7-18 [facility] Thin prep Papanicolaou smear with manual screeningOrdered By: Oliver Junior on 01-11-2024 Thin prep Papanicolaou smear with manual screening 3.7 g/dL 3.2-5.0 [facility] Thin prep Papanicolaou smear with manual screening 19 U/L 15-37 [facility] Thin prep Papanicolaou smear with manual screening 3 5-15 [facility] Absolute lymphocyte countOrd ered By: Oliver Junior on 09-10-2023 Lymphocytes Auto (Unsp spec) [#/Vol] 1.67 10*3/uL 0.83-4.51 [facility] Basophil percentageOrdered B y: Oliver Junior on 09-10-2023 Basophils/100 WBC (Bld) 1.1 % 0-1 [facility] Bilirubin [Mass/Vol] 0.30 mg/dL 0.20-1.00 [facility] Comment on above: For patients on eltr ombopag therapy, use of Dimension [place] TBIL is not recommended. Chloride [Moles/Vol] 107 mmol/L 98-107 [facility] Cholesterol [Mass/Vol] 216 mg/dL <200 [facility] Comment on above: <200 mg/dL Desirable 200-240 mg/dL Borderline >240 mg/dL High Risk Eosinophils/100 WBC (Bld) 7.5 % 0-5 [facility] Glucose [Mass/Vol] 98 mg/dL 74-106 [facility] Neutrophils (Bld) [#/Vol] 4.1 10*3/uL 2.0-7.7 [facility] Neutrophils/100 WBC (Bld) 62.0 % 47-70 [facility] Potassium [Moles/Vol] 3.9 mmol/L 3.5-5.1 [facility] Protein [Mass/Vol] 7.5 g/dL 6.4-8.2 [facility] Sodium [Moles/Vol] 140 mmol/L 136-145 [facility] Triglyceride [Mass/Vol] 133 mg/dL <199 [facility] Comment on above: The drugs N-Acetylcy steine and Metamizole may falsely depress this assay.Serum Triglycerides Reference Interval Normal <150 mg/dL Borderline high 150 - 199 mg/dL High 200 - 499 mg/dL Very High > or = 500 mg/dL WBC (Bld) [#/Vol] 6.7 10*3/uL 4.4-11.0 [facility] Blood erythrocytes count (nu mber/volume)Ordered By: Oliver Junior on 09-10-2023 RBC (Bld) [#/Vol] 4.57 10*6/uL 4.2-5.4 [facility] Blood hemoglobin measurement (mass/volume)Ordered By: Oliver Junior on 09-10-2023 Hemoglobin (Bld) [Mass/Vol] 14.0 g/dL 12.0-15.0 [facility] Blood lymphocytes/100 leukoc ytesOrdered By: Oliver Junior on 09-10-2023 Lymphocytes/100 WBC (Bld) 25.1 % 19-41 [facility] Blood monocytes/100 leukocyt esOrdered By: amandagilmerdonis Junior on 09-10-2023 Monocytes/100 WBC (Bld) 4.1 % 0-10 [facility] Blood platelet mean volumeOr dered By: amandagilmerdonis Junior on 09-10-2023 Platelet mean volume (Bld) [Entitic vol] 10.7 fL 6.2-12.0 [facility] Determination of erythrocyte mean corpuscular volume (MCV)Ordered By: Darielgilmerdonis Junior on 09-10-2023 MCV (RBC) [Entitic vol] 89.5 fL 81-99 [facility] Hematocrit Auto (Bld) [Volum e fraction]Ordered By: [facility] Block[facility] on 09-10-2023 Hematocrit (Bld) [Volume fraction] 40.9 % 37-47 [facility] - Chemistry and C hemistry - challengeOrdered By: [facility] Umaironeyda on 09-10-2023 ALP [Catalytic activity/Vol] 43 U/L 45-117 [facility] ALT [Catalytic activity/Vol] 42 U/L 13-56 [facility] CO2 [Moles/Vol] 27.0 mmol/L 21.0-32.0 [facility] Globulin (S) [Mass/Vol] 4.0 g/dL 2.2-4.2 [facility] Urea nitrogen/Creatinine [Mass ratio] 13.3 mg/mg 10-20 [facility] - Hematology and Cell countsOrdered By: amandagilmerdonis Blockoneyda on 09-10-2023 Erythrocyte distribution width (RBC) [Entitic vol] 39.8 fL 35.1-43.9 [facility] Erythrocyte distribution width (RBC) [Ratio] 12.2 % 11.6-14.6 [facility] Immature granulocytes/100 WBC (Bld) 0.200 % 0.0-0.9 [facility] Comment on above: IG% - Immature Granu locytes (promyelocytes, myelocytes and metamyelocytes) > 1% indicates that a LEFT SHIFT is Present. MCH (RBC) [Entitic mass] 30.6 pg 27.0-32.0 [facility] Nucleated RBC/100 WBC (Bld) [Ratio] 0 % 0-5 [facility] MCHC Auto (RBC) [Mass/Vol]Or dered By: Oliver Junior on 09-10-2023 MCHC (RBC) [Mass/Vol] 34.2 g/dL 32-36 [facility] No Panel InformationOrdered By: Oliver Junior on 09-10-2023 Estimated GFR (MDRD) Amer 88 mL/min >60 [facility] Comment on above: GFR Calc Estimated GFR (MDRD) Non-Af Amer 72 mL/min >60 [facility] Comment on above: Non- GFR Calc Thyroid Stimulating Hormone (TSH) 3.42 uIU/mL 0.358-3.74 [facility] Platelets bldOrdered By: Yakov Junior on 09-10-2023 Platelets (Bld) [#/Vol] 232 10*3/uL 150-450 [facility] Serum or plasma albumin saba urement (mass/volume)Ordered By: Oliver Junior on 09-10-2023 Albumin [Mass/Vol] 3.5 g/dL 3.2-5.0 [facility] Serum or plasma albumin/glob ulin mass ratioOrdered By: Oliver Junior on 09-10-2023 Albumin/Globulin [Mass ratio] 0.9 {ratio} 0.9-2.4 [facility] Serum or plasma calcium saba urement (mass/volume)Ordered By: Oliver Junior on 09-10-2023 Calcium [Mass/Vol] 8.8 mg/dL 8.5-10.1 [facility] Serum or plasma cholesterol in HDL measurement (mass/volume)Ordered By: Oliver Junior on 09-10-2023 Cholesterol in HDL [Mass/Vol] 68 mg/dL >40 [facility] Comment on above: The drugs N-Acetylcy steine and Metamizole may falsely depress this assay. Reference Range HDL <40 mg/dL Low HDL Cholesterol HDL >or= 60 mg/dL High HDL Cholesterol Serum or plasma cholesterol in VLDL measurement (mass/volume)Ordered By: Oliver Junior on 09-10-2023 Cholesterol in VLDL [Mass/Vol] 27 mg/dL 5-40 [facility] Serum or plasma creatinine m easurement (mass/volume)Ordered By: Oliver Junior on 09-10-2023 Creatinine [Mass/Vol] 0.90 mg/dL 0.55-1.02 [facility] Comment on above: The validity of the calculated GFR & GFRAA in patients over 70 years has not been determined. Clinical correlation is essential. Serum or plasma low density lipoprotein (LDL) cholesterol measurement (mass/volume)Ordered By: Oliver Junior on 09-10-2023 Cholesterol in LDL [Mass/Vol] 121 mg/dL 0-130 [facility] Serum or plasma urea nitroge n measurement (mass/volume)Ordered By: Oliver Junior on 09-10-2023 Urea nitrogen [Mass/Vol] 12 mg/dL 7-18 [facility] Thin prep Papanicolaou smear with manual screeningOrdered By: Oliver Junior on 09-10-2023 Thin prep Papanicolaou smear with manual screening 24 U/L 15-37 [facility] Thin prep Papanicolaou smear with manual screening 6 5-15 [facility] Respiratory pathogens detect ion panel by molecular detection methodOrdered By: Cynthia Arellano on 08-08-2023 Respiratory pathogens DNA and RNA panel ROMAN+probe (Resp) [facility] Chlamydia trachomatis rRNA d etection by probe and target amplification methodOrdered By: Nighat Machuca on 07-26-2023 C. trachomatis rRNA ROMAN+probe Ql (Unsp spec) Negative Negative [facility] - Microbiology an d Antimicrobial susceptibilityOrdered By: Nighat Machuca on 07-26-2023 N. gonorrhoeae DNA ROMAN+probe Ql (Unsp spec) Negative Negative [facility] Comment on above: Performed at: =[facility] [address] [id number] Director: Carol Monte MD, Phone: [phone] No Panel Informationon 07-26 POC Trichomonas (Rapid) Negative [facility] Laboratory - Chemistry and C hemistry - challengeOrdered By: Baldev Roberto on 11-23-2022 Cobalamin (Vitamin B12) [Mass/Vol] 528 pg/mL 211-911 [facility] No Panel InformationOrdered By: Baldev Roberto on 11-23-2022 Follicle Stimulating Hormone 3.2 mIU/mL [facility] Comment on above: NORMAL REFERENCE RAN GES FEMALE FOLLICULAR 2.3 - 12.6 mIU/mL MID-CYCLE PEAK 5.2 - 17.5 mIU/mL LUTEAL 1.7 - 12.9 mIU/mL POST-MENOPAUSAL ON MHT 5.9 - 72.8 mIU/mL NOT ON MHT 12.7 - 132.2 mlU/mL MALE 0.7 - 10.8 mIU/mL Luteinizing Hormone 3.2 mIU/mL [facility] Comment on above: NORMAL REFERENCE RAN GES FEMALE FOLLICULAR 1.9 - 26.2 mIU/mL MID-CYCLE PEAK 22.8 - 76.1 mIU/mL LUTEAL 0.6 - 16.6 mIU/mL POST-MENOPAUSAL ON MHT 1.1 - 52.4 mIU/mL NOT ON MHT 8.6 - 61.8 mIU/mL MALE 1.2 - 10.6 mIU/mL Thyroid Stimulating Hormone (TSH) 4.10 uIU/mL 0.358-3.74 [facility] Vitamin D 25-Hydroxy 20.4 ng/mL [facility] Comment on above: Vitamin D 25(OH) Sta tus Range Deficiency <20 ng/mL (50nmol/L) Insufficiency 20 - 30 ng/mL (50 - 75 nmol/L) Sufficiency 30 - 100 ng/mL (75 - 250 nmol/L) Toxicity >100 ng/mL (>250 nmol/L) No Panel InformationOrdered By: Baldev Roberto on 09-28-2022 Thyroid Stimulating Hormone (TSH) 4.82 uIU/mL 0.358-3.74 [facility] - Chemistry and C hemistry - challengeon 06-30-2022 Free T4 [Mass/Vol] 0.87 ng/dL 0.76-1.46 [facility] Work Phone: No Panel Informationon 06-30 Thyroid Stimulating Hormone (TSH) 6.89 uIU/mL 0.358-3.74 [facility] Work Phone: Absolute lymphocyte counton 06-08-2022 Lymphocytes Auto (Unsp spec) [#/Vol] 1.79 10*3/uL 0.83-4.51 [facility] Work Phone: Basophil percentageon 2021 Basophils/100 WBC (Bld) 1.0 % 0-1 [facility] Work Phone: Bilirubin [Mass/Vol] 0.50 mg/dL 0.20-1.00 [facility] Work Phone: Comment on above: For patients on eltr ombopag therapy, use of Dimension [place] TBIL is not recommended. Chloride [Moles/Vol] 102 mmol/L 98-107 [facility] Work Phone: Cholesterol [Mass/Vol] 206 mg/dL <200 [facility] Work Phone: Comment on above: <200 mg/dL Desirable 200-240 mg/dL Borderline >240 mg/dL High Risk Eosinophils/100 WBC (Bld) 2.8 % 0-5 [facility] Work Phone: Glucose [Mass/Vol] 88 mg/dL 74-106 [facility] Work Phone: Neutrophils (Bld) [#/Vol] 3.8 10*3/uL 2.0-7.7 [facility] Work Phone: Neutrophils/100 WBC (Bld) 61.7 % 47-70 [facility] Work Phone: Potassium [Moles/Vol] 4.0 mmol/L 3.5-5.1 [facility] Work Phone: Protein [Mass/Vol] 7.8 g/dL 6.4-8.2 [facility] Work Phone: Sodium [Moles/Vol] 136 mmol/L 136-145 [facility] Work Phone: Triglyceride [Mass/Vol] 96 mg/dL <199 [facility] Work Phone: Comment on above: The drugs N-Acetylcy steine and Metamizole may falsely depress this assay.Serum Triglycerides Reference Interval Normal <150 mg/dL Borderline high 150 - 199 mg/dL High 200 - 499 mg/dL Very High > or = 500 mg/dL WBC (Bld) [#/Vol] 6.1 10*3/uL 4.4-11.0 [facility] Work Phone: Blood erythrocytes count (nu mber/volume)on 06-08-2022 RBC (Bld) [#/Vol] 4.82 10*6/uL 4.2-5.4 [facility] Work Phone: Blood hemoglobin measurement (mass/volume)on 06-08-2022 Hemoglobin (Bld) [Mass/Vol] 14.0 g/dL 12.0-15.0 [facility] Work Phone: [phone] Blood lymphocytes/100 leukoc yteson 06-08-2022 Lymphocytes/100 WBC (Bld) 29.3 % 19-41 [facility] Work Phone: [phone] Blood monocytes/100 leukocyt eson 06-08-2022 Monocytes/100 WBC (Bld) 4.9 % 0-10 [facility] Work Phone: [phone] Blood platelet mean volumeon 06-08-2022 Platelet mean volume (Bld) [Entitic vol] 11.8 fL 6.2-12.0 [facility] Work Phone: [phone] Determination of erythrocyte mean corpuscular volume (MCV)on 06-08-2022 MCV (RBC) [Entitic vol] 88.0 fL 81-99 [facility] Work Phone: [phone] Hematocrit Auto (Bld) [Volum e fraction]on 06-08-2022 Hematocrit (Bld) [Volume fraction] 42.4 % 37-47 [facility] Work Phone: Laboratory - Chemistry and C hemistry - challengeon 06-08-2022 ALP [Catalytic activity/Vol] 45 U/L 45-117 [facility] Work Phone: [phone] ALT [Catalytic activity/Vol] 38 U/L 13-56 [facility] Work Phone: CO2 [Moles/Vol] 29.0 mmol/L 21.0-32.0 [facility] Work Phone: [phone] Globulin (S) [Mass/Vol] 4.2 g/dL 2.2-4.2 [facility] Work Phone: [phone] Urea nitrogen/Creatinine [Mass ratio] 15.9 mg/mg 10-20 [facility] Work Phone: [phone] Laboratory - Hematology and Cell countson 06-08-2022 Erythrocyte distribution width (RBC) [Entitic vol] 43.2 fL 35.1-43.9 [facility] Work Phone: [phone] Erythrocyte distribution width (RBC) [Ratio] 13.4 % 11.6-14.6 [facility] Work Phone: [phone] Immature granulocytes/100 WBC (Bld) 0.300 % 0.0-0.9 [facility] Work Phone: [phone] Comment on above: IG% - Immature Granu locytes (promyelocytes, myelocytes and metamyelocytes) > 1% indicates that a LEFT SHIFT is Present. MCH (RBC) [Entitic mass] 29.0 pg 27.0-32.0 [facility] Work Phone: [phone] Nucleated RBC/100 WBC (Bld) [Ratio] 0 % 0-5 [facility] Work Phone: [phone] MCHC Auto (RBC) [Mass/Vol]on 06-08-2022 MCHC (RBC) [Mass/Vol] 33.0 g/dL 32-36 [facility] Work Phone: No Panel Informationon 06-08 Estimated GFR (MDRD) Amer 83 mL/min >60 [facility] Work Phone: [phone] Comment on above: GFR Calc Estimated GFR (MDRD) Non-Af Amer 69 mL/min >60 [facility] Work Phone: [phone] Comment on above: Non- GFR Calc Platelets bldon 06-08-2022 Platelets (Bld) [#/Vol] 200 10*3/uL 150-450 [facility] Work Phone: Serum or plasma albumin saba urement (mass/volume)on 06-08-2022 Albumin [Mass/Vol] 3.6 g/dL 3.2-5.0 [facility] Work Phone: Serum or plasma albumin/glob ulin mass ratioon 06-08-2022 Albumin/Globulin [Mass ratio] 0.9 {ratio} 0.9-2.4 [facility] Work Phone: Serum or plasma calcium saba urement (mass/volume)on 06-08-2022 Calcium [Mass/Vol] 9.0 mg/dL 8.5-10.1 [facility] Work Phone: Serum or plasma cholesterol in HDL measurement (mass/volume)on 06-08-2022 Cholesterol in HDL [Mass/Vol] 68 mg/dL >40 [facility] Work Phone: Comment on above: The drugs N-Acetylcy steine and Metamizole may falsely depress this assay. Reference Range HDL <40 mg/dL Low HDL Cholesterol HDL >or= 60 mg/dL High HDL Cholesterol Serum or plasma cholesterol in VLDL measurement (mass/volume)on 06-08-2022 Cholesterol in VLDL [Mass/Vol] 19 mg/dL 5-40 [facility] Work Phone: Serum or plasma creatinine m easurement (mass/volume)on 06-08-2022 Creatinine [Mass/Vol] 0.94 mg/dL 0.55-1.02 [facility] Work Phone: Comment on above: The validity of the calculated GFR & GFRAA in patients over 70 years has not been determined. Clinical correlation is essential. Serum or plasma low density lipoprotein (LDL) cholesterol measurement (mass/volume)on 06-08-2022 Cholesterol in LDL [Mass/Vol] 119 mg/dL 0-130 [facility] Work Phone: Serum or plasma urea nitroge n measurement (mass/volume)on 06-08-2022 Urea nitrogen [Mass/Vol] 15 mg/dL 7-18 [facility] Work Phone: Thin prep Papanicolaou smear with manual screeningon 06-08-2022 Thin prep Papanicolaou smear with manual screening 24 U/L 15-37 [facility] Work Phone: Thin prep Papanicolaou smear with manual screening 5 5-15 [facility] Work Phone: Vital Signs Date Time Vital Sign Value Performing Clinician Adilene goff 03-12-2025 14:49-0400 Body height 160.[address] Oliver Junior MD Work Phone: [facility] 03-12-2025 14:49-0400 Body mass index (BMI) [Ratio] 33.1 kg/m2 Dr. Oliver Junior MD Work Phone: [facility] 03-12-2025 14:49-0400 Body temperature 96.8 [degF] Dr. Oliver Junior MD Work Phone: [facility] 03-12-2025 14:49-0400 Body weight 84.[address] Oliver Junior MD Work Phone: [facility] 03-12-2025 14:49-0400 Diastolic blood pressure 70 mm[Hg] Dr. Oliver Junior MD Work Phone: [facility] 03-12-2025 14:49-0400 Heart rate 71 /min Dr. Oliver Junior MD Work Phone: [facility] 03-12-2025 14:49-0400 Respiratory rate 18 /min Dr. Oliver Junior MD Work Phone: [facility] 03-12-2025 14:49-0400 SaO2% (BldA) [Mass fraction] 98 % Dr. Oliver Junior MD Work Phone: [facility] 03-12-2025 14:49-0400 Systolic blood pressure 142 mm[Hg] Dr. Oliver Junior MD Work Phone: [facility] 12-26-2024 13:00-0400 Body temperature 98.5 [degF] Dr. Oliver Junior MD Work Phone: [facility] 12-26-2024 13:00-0400 Diastolic blood pressure 92 mm[Hg] Dr. Oliver Junior MD Work Phone: [facility] 12-26-2024 13:00-0400 Heart rate 77 /min Dr. Oliver Junior MD Work Phone: [facility] 12-26-2024 13:00-0400 Respiratory rate 16 /min Dr. Oliver Junior MD Work Phone: [facility] 12-26-2024 13:00-0400 SaO2% (BldA) [Mass fraction] 98 % Dr. Oliver Junior MD Work Phone: [facility] 12-26-2024 13:00-0400 Systolic blood pressure 125 mm[Hg] Dr. Oliver Junior MD Work Phone: [facility] 12-26-2024 11:22-0400 Body height 160.[address] Oliver Junior MD Work Phone: [facility] 12-26-2024 11:22-0400 Body mass index (BMI) [Ratio] 33.3 kg/m2 Dr. Oliver Junior MD Work Phone: [facility] 12-26-2024 11:22-0400 Body weight 85.[address] Oliver Junior MD Work Phone: [facility] 10-22-2024 11:16-0500 Body mass index (BMI) [Ratio] 33.6 kg/m2 Dr. Oliver Junior MD Work Phone: [facility] 10-22-2024 11:16-0500 Body weight 86.[address] Oliver Junior MD Work Phone: [facility] 10-10-2024 08:15-0500 Body mass index (BMI) [Ratio] 33.6 kg/m2 Dr. Oliver Junior MD Work Phone: [facility] 10-10-2024 08:15-0500 Body temperature 97.9 [degF] Dr. Oliver Junior MD Work Phone: [facility] 10-10-2024 08:15-0500 Body weight 86.[address] Oliver Junior MD Work Phone: [facility] 10-10-2024 08:15-0500 Diastolic blood pressure 86 mm[Hg] Dr. Oliver Junior MD Work Phone: [facility] 10-10-2024 08:15-0500 Heart rate 79 /min Dr. Oliver Junior MD Work Phone: [facility] 10-10-2024 08:15-0500 Respiratory rate 16 /min Dr. Oliver Junior MD Work Phone: [facility] 10-10-2024 08:15-0500 SaO2% (BldA) [Mass fraction] 99 % Dr. Oliver Junior MD Work Phone: [facility] 10-10-2024 08:15-0500 Systolic blood pressure 138 mm[Hg] Dr. Oliver Junior MD Work Phone: [facility] 01-11-2024 09:31-0400 Body height 160.[address] Oliver Junior Work Phone: [facility] 01-11-2024 09:31-0400 Body mass index (BMI) [Ratio] 33.5 kg/m2 Dr. Oliver Junior Work Phone: [facility] 01-11-2024 09:31-0400 Body temperature 97.6 [degF] Dr. Oliver Junior Work Phone: [facility] 01-11-2024 09:31-0400 Body weight 85.[address] Oliver Junior Work Phone: [facility] 01-11-2024 09:31-0400 Diastolic blood pressure 80 mm[Hg] Dr. Oliver Junior Work Phone: [facility] 01-11-2024 09:31-0400 Heart rate 85 /min Dr. Oliver Junior Work Phone: [facility] 01-11-2024 09:31-0400 Respiratory rate 16 /min Dr. Oliver Junior Work Phone: [facility] 01-11-2024 09:31-0400 SaO2% (BldA) [Mass fraction] 98 % Dr. Oliver Junior Work Phone: [facility] 01-11-2024 09:31-0400 Systolic blood pressure 122 mm[Hg] Dr. Oliver Junior Work Phone: [facility] 09-10-2023 14:17-0500 Body height 160.[address] Oliver Junior Work Phone: [facility] 09-10-2023 14:17-0500 Body mass index (BMI) [Ratio] 34.5 kg/m2 Dr. Oliver Junior Work Phone: [facility] 09-10-2023 14:17-0500 Body temperature 97.6 [degF] Dr. Oliver Junior Work Phone: [facility] 09-10-2023 14:17-0500 Body weight 88.[address] Oliver Junior Work Phone: [facility] 09-10-2023 14:17-0500 Diastolic blood pressure 72 mm[Hg] Dr. Oliver Junior Work Phone: [facility] 09-10-2023 14:17-0500 Heart rate 82 /min Dr. Oliver Junior Work Phone: [facility] 09-10-2023 14:17-0500 Respiratory rate 14 /min Dr. Oliver Junior Work Phone: [facility] 09-10-2023 14:17-0500 SaO2% (BldA) [Mass fraction] 98 % Dr. Oliver Junior Work Phone: [facility] 09-10-2023 14:17-0500 Systolic blood pressure 122 mm[Hg] Dr. Oliver Junior Work Phone: [facility] 08-08-2023 10:08-0500 Body height 160.[address] Oliver Junior Work Phone: [facility] 08-08-2023 10:08-0500 Body mass index (BMI) [Ratio] 34 kg/m2 Dr. Oliver Junior Work Phone: [facility] 08-08-2023 10:08-0500 Body temperature 97.8 [degF] Dr. Oliver Junior Work Phone: [facility] 08-08-2023 10:08-0500 Body weight 87.[address] Oliver Junior Work Phone: [facility] 08-08-2023 10:08-0500 Diastolic blood pressure 86 mm[Hg] Dr. Oliver Junior Work Phone: [facility] 08-08-2023 10:08-0500 Heart rate 86 /min Dr. Oliver Junior Work Phone: [facility] 08-08-2023 10:08-0500 Respiratory rate 18 /min Dr. Oliver Junior Work Phone: [facility] 08-08-2023 10:08-0500 SaO2% (BldA) [Mass fraction] 99 % Dr. Oliver Junior Work Phone: [facility] 08-08-2023 10:08-0500 Systolic blood pressure 138 mm[Hg] Dr. Oliver Junior Work Phone: [facility] 08-04-2023 10:20-0400 Body height 160.[address] Oliver Junior Work Phone: [facility] 08-04-2023 10:20-0400 Body mass index (BMI) [Ratio] 34 kg/m2 Dr. Oliver Junior Work Phone: [facility] 08-04-2023 10:20-0400 Body weight 87.[address] Oliver Junior Work Phone: [facility] 08-04-2023 10:20-0400 Diastolic blood pressure 96 mm[Hg] Dr. Oliver Junior Work Phone: [facility] 08-04-2023 10:20-0400 Heart rate 98 /min Dr. Oliver Junior Work Phone: [facility] 08-04-2023 10:20-0400 Respiratory rate 16 /min Dr. Oliver Junior Work Phone: [facility] 08-04-2023 10:20-0400 SaO2% (BldA) [Mass fraction] 94 % Dr. Oliver Junior Work Phone: [facility] 08-04-2023 10:20-0400 Systolic blood pressure 130 mm[Hg] Dr. Oliver Junior Work Phone: [facility] 07-26-2023 14:54-0400 Body height 160.[address] Oliver Junior Work Phone: [facility] 07-26-2023 14:45-0400 Body mass index (BMI) [Ratio] 34.8 kg/m2 Dr. Oliver Junior Work Phone: [facility] 07-26-2023 14:45-0400 Body weight 89.[address] Oliver Junior Work Phone: [facility] 07-26-2023 14:45-0400 Diastolic blood pressure 82 mm[Hg] Dr. Oliver Junior Work Phone: [facility] 07-26-2023 14:45-0400 Systolic blood pressure 140 mm[Hg] Dr. Oliver Junior Work Phone: [facility] 11-23-2022 09:08-0500 Body height 160.[address] Oliver Junior Work Phone: [facility] 11-23-2022 09:08-0500 Body mass index (BMI) [Ratio] 33.5 kg/m2 Dr. Oliver Junior Work Phone: [facility] 11-23-2022 09:08-0500 Body temperature 96.7 [degF] Dr. Oliver Junior Work Phone: [facility] 11-23-2022 09:08-0500 Body weight 85.[address] Oliver Junior Work Phone: [facility] 11-23-2022 09:08-0500 Diastolic blood pressure 68 mm[Hg] Dr. Oliver Junior Work Phone: [facility] 11-23-2022 09:08-0500 Heart rate 73 /min Dr. Oliver Junior Work Phone: [facility] 11-23-2022 09:08-0500 Respiratory rate 18 /min Dr. Oliver Junior Work Phone: [facility] 11-23-2022 09:08-0500 SaO2% (BldA) [Mass fraction] 99 % Dr. Oliver Junior Work Phone: [facility] 11-23-2022 09:08-0500 Systolic blood pressure 122 mm[Hg] Dr. Oliver Junior Work Phone: [facility] 09-28-2022 09:32-0500 Body mass index (BMI) [Ratio] 33.6 kg/m2 Dr. Oliver Junior Work Phone: [facility] 09-28-2022 09:32-0500 Body temperature 98.6 [degF] Dr. Oliver Junior Work Phone: [facility] 09-28-2022 09:32-0500 Body weight 86.[address] Oliver Junior Work Phone: [facility] 09-28-2022 09:32-0500 Diastolic blood pressure 88 mm[Hg] Dr. Oliver Junior Work Phone: [facility] 09-28-2022 09:32-0500 Heart rate 99 /min Dr. Oliver Junior Work Phone: [facility] 09-28-2022 09:32-0500 Respiratory rate 16 /min Dr. Oliver Junior Work Phone: [facility] 09-28-2022 09:32-0500 SaO2% (BldA) [Mass fraction] 99 % Dr. Oliver Junior Work Phone: [facility] 09-28-2022 09:32-0500 Systolic blood pressure 122 mm[Hg] Dr. Oliver Junior Work Phone: [facility] 06-30-2022 09:01-0400 Body height 160.[address] Oliver Junior Work Phone: [facility] Work Phone: 06-30-2022 09:01-0400 Body mass index (BMI) [Ratio] 33.3 kg/m2 Dr. Oliver Junior Work Phone: [facility] Work Phone: 06-30-2022 09:01-0400 Body temperature 97.9 [degF] Dr. Oliver Junior Work Phone: [facility] Work Phone: 06-30-2022 09:01-0400 Body weight 85.[address] Oliver Junior Work Phone: [facility] Work Phone: 06-30-2022 09:01-0400 Diastolic blood pressure 86 mm[Hg] Dr. Oliver Junior Work Phone: [facility] Work Phone: 06-30-2022 09:01-0400 Heart rate 82 /min Dr. Oliver Junior Work Phone: [facility] Work Phone: 06-30-2022 09:01-0400 Respiratory rate 18 /min Dr. Oliver Junior Work Phone: [facility] Work Phone: 06-30-2022 09:01-0400 SaO2% (BldA) [Mass fraction] 97 % Dr. Oliver Junior Work Phone: [facility] Work Phone: 06-30-2022 09:01-0400 Systolic blood pressure 124 mm[Hg] Dr. Oliver Junior Work Phone: [facility] Work Phone: 05-26-2022 10:21-0400 Body height 160.[address] Oliver Junior Work Phone: [facility] Work Phone: 05-26-2022 10:21-0400 Body mass index (BMI) [Ratio] 33.5 kg/m2 Dr. Oliver Junior Work Phone: [facility] Work Phone: 05-26-2022 10:21-0400 Body temperature 96.8 [degF] Dr. Oliver Junior Work Phone: [facility] Work Phone: 05-26-2022 10:21-0400 Body weight 85.[address] Oliver Junior Work Phone: [facility] Work Phone: 05-26-2022 10:21-0400 Diastolic blood pressure 110 mm[Hg] Dr. Oliver Junior Work Phone: [facility] Work Phone: 05-26-2022 10:21-0400 Heart rate 87 /min Dr. Oliver Junior Work Phone: [facility] Work Phone: 05-26-2022 10:21-0400 Respiratory rate 16 /min Dr. Oliver Junior Work Phone: [facility] Work Phone: 05-26-2022 10:21-0400 SaO2% (BldA) [Mass fraction] 99 % Dr. Oliver Junior Work Phone: [facility] Work Phone: 05-26-2022 10:21-0400 Systolic blood pressure 144 mm[Hg] Dr. Oliver Junior Work Phone: [facility] Work Phone: Encounters Encounter Date Encounter Type Care Provider Facility Start: 04-02-2025 End: 04-02-[address] Oliver Junior MD Work Phone: -[facility] Start: 04-02-2025 End: 04-02-[address] Oliver Junior MD -Sleep [facility] Work Phone: Start: 04-02-2025 End: 04-02-2025 ambulatory Oliver Junior Facility:[facility] Start: 03-12-2025 End: 03-12-[address] Oliver Junior MD -[facility] Work Phone: Start: 03-12-2025 End: 03-12-[address] Oliver Junior MD Work Phone: [facility] Work Phone: Start: 03-12-2025 End: 03-12-2025 [facility] Start: 01-02-2025 Encounter for other preprocedural examination Jaironparker Vanegas [facility] Start: 12-26-2024 ambulatory Jaironparker Vanegas Facility [facility] Start: 12-26-2024 Non-patient / Non-visit Jairon Frie francisco DO -[facility] Start: 12-26-2024 End: 12-26-2024 Admission to same day surgery center Jaironjackie Vanegas DO -Endoscopy Work Phone: Start: 12-26-2024 End: 12-26-[address] Oliver Junior MD Work Phone: [facility] Work Phone: Start: 11-06-2024 End: 11-06-2024 Patient encounter procedure Santos Solis [employer]ATOR-C -Laboratory Work Phone: Start: 11-06-2024 End: 11-06-2024 ambulatory Santos Solis Facility:[facility] Start: 10-22-2024 Non-patient / Non-visit Dr. Lizz Junior MD Work Phone: -[facility] Work Phone: Start: 10-22-2024 ambulatory [facility] Facility:[facility] Start: 10-10-2024 Encounter for genera l adult medical examination without abnormal findings Oliver Junior [facility] Start: 10-10-2024 End: 10-10-[address] Oliver Junior MD -[facility] Work Phone: Start: 10-10-2024 End: 10-10-[address] Oliver Junior MD [facility] Start: 10-10-2024 End: 10-10-2024 ambulatory Oliver Junior Facility[facility] Start: 08-12-2024 End: 08-12-2024 [facility] Start: 07-30-2024 Encounter for gynecological examination (general) (routine) without abnormal findings Nighat Machuca SP[employer]AL GEAR GENERATOR [facility] Start: 07-30-2024 End: 07-30-2024 ambulatory Nighat Sven SP[employer]AL GEAR GENERATOR Facility:[facility] Start: 05-08-2024 End: 05-08-2024 [facility] Start: 05-08-2024 End: 05-08-2024 ambulatory [facility] Facility:[facility] Start: 01-11-2024 End: 01-11-[address] Oliver Junior Work Phone: [facility] Work Phone: Start: 01-11-2024 End: 01-11-[address] Oliver Junior Work Phone: [facility] Internal Medicine Work Phone: Start: 09-10-2023 End: 09-10-[address] Oliver Junior Work Phone: [facility] Work Phone: Start: 09-10-2023 End: 09-10-[address] Oliver Junior Work Phone: [facility] Internal Medicine Work Phone: Start: 08-08-2023 End: 08-08-[address] Oliver Junior Work Phone: [facility] Work Phone: Start: 08-08-2023 End: 08-08-[address] Oliver Junior Work Phone: [facility] Internal Medicine Work Phone: Start: 08-04-2023 End: 08-04-[address] Oliver Junior Work Phone: [facility] Work Phone: Start: 08-03-2023 End: 08-03-[address] Oliver Junior Work Phone: [facility] Work Phone: Start: 08-03-2023 End: 08-03-[address] Oliver Junior Work Phone: [facility]-Outpatient Breast Imaging Work Phone: Start: 07-26-2023 End: 07-26-[address] Oliver Junior Work Phone: [facility] Work Phone: Start: 07-26-2023 End: 07-26-[address] Oliver Junior Work Phone: [facility]-Laboratory, Specimen Work Phone: Start: 07-26-2023 End: 07-26-[address] Oliver Junior Work Phone: [facility] Work Phone: Start: 11-23-2022 End: 11-23-[address] Oliver Junior Work Phone: [facility] Work Phone: Start: 11-23-2022 End: 11-23-[address] Oliver Junior Work Phone: [facility] Internal Medicine Start: 09-28-2022 End: 09-28-[address] Oliver Junior Work Phone: [facility] Internal Medicine Start: 06-30-2022 End: 06-30-[address] Oliver Junior Work Phone: [facility] Work Phone: Start: 06-30-2022 End: 06-30-[address] Oliver Junior Work Phone: [facility] Internal Medicine Start: 06-08-2022 End: 06-08-[address] Oliver Junior Work Phone: [facility] Work Phone: Start: 06-08-2022 End: 06-08-[address] Oliver Junior Work Phone: [facility] [place] Start: 05-26-2022 End: 05-26-[address] Oliver Junior Work Phone: [facility] Internal Medicine Procedures Date Procedure Procedure Detail Performing Clinician Start: 12-26-[address] Abelardo Junior MD Work Phone: Start: 08-08-[address] Oliver Junior Work Phone: Start: 08-08-2023 Plain chest X-ray Dr. Oneyda Junior Work Phone: Start: 08-03-2023 Screening mammography Rita Junior Work Phone: Plan of Treatment Date Care Activity Detail Author Start: 04-02-2025 Polysomnography [facility] Start: 03-12-2025 CBC W Auto Differential panel - Blood [facility] Start: 03-12-2025 Comprehensive metabolic 2000 panel - Serum or Plasma [facility] Start: 03-12-2025 T4 free measurement [facility] Start: 03-12-2025 Thyroid stimulating hormone measurement [facility] Start: 12-29-2024 Patient discharge [facility] Start: 12-26-2024 Colonoscopy w/biopsy single/multiple COLONOSCOPY AND BIOPSY [facility] Start: 10-10-2024 Patient referral [facility] Work Phone: Start: 11-23-2022 Estrogen [Mass/volume] in Serum or Plasma [facility] Alanine aminotransfe rase [Enzymatic activity/volume] in Serum or Plasma [facility] Albumin [Mass/volume ] in Serum or Plasma [facility] Alkaline phosphatase [Enzymatic activity/volume] in Serum or Plasma [facility] Anion gap in Serum o r Plasma [facility] Bilirubin, total measurement [facility] BUN/Creatinine ratio [facility] Calcium [Mass/volume ] in Serum or Plasma [facility] Carbon dioxide, tota l [Moles/volume] in Central venous blood [facility] Colonoscopy [facility] Creatinine [Mass/vol ume] in Serum or Plasma [facility] Erythrocyte mean corpuscular volume determination [facility] Glucose [Mass/volume ] in Serum or Plasma [facility] Hematocrit [Volume Fraction] of Blood [facility] Hemoglobin [Mass/vol ume] in Blood [facility] Leukocytes [#/volume ] in Blood [facility] Mean corpuscular hem oglobin concentration determination [facility] Mean corpuscular hem oglobin determination [facility] Measurement of renal function [facility] MG Breast - bilatera l Screening [facility] Neutrophil count [facility] Neutrophil percent differential count [facility] Patient referral [facility] Work Phone: Platelets [#/volume] in Blood [facility] Polysomnography [facility] Potassium measurement [facility] Red blood cell count [facility] Red cell distributio n width determination [facility] Serum chloride measurement [facility] Sodium measurement [facility] Total protein measurement [facility] Urea nitrogen [Mass/ volume] in Serum or Plasma [facility] Urine test [facility] Immunizations Immunization Date Immunization Notes Care Provider Fa cilimaria m 08-18-2021 Lizzie ([facility]) Dr. Jefry Junior Work Phone: [facility] 12-29-2020 Covid ([facility]) Dr. Jefry Junior Work Phone: [facility] 12-01-2020 Covjesika ([facility]) Dr. Jefry Junior Work Phone: [facility] Payers Date Payer Category Payer Unknown [id number] 2024 Self-pay [id number] 2024 Private Health Insurance [id number] Unknown [id number] Unknown [facility] [id number] Unknown [facility] [id number] Unknown [id number] Unknown [id number] Unknown [id number] Unknown [id number] Unknown [id number] Unknown [id number] Unknown [id number] Unknown [id number] Unknown [id number] Unknown [id number] Unknown [id number] Unknown [id number] Social History Date Type Detail Facility Start: 05-26-2022 End: 09-10-2023 Tobacco smoking status NHIS Unknown if ever smoked [facility] Start: 1980 Sex Assigned At Female [facility] Start: 2024 Tobacco smoking status NHIS Never smoked tobacco (finding) [facility] Start: 12-29-2024 Sex Female (finding) [facility] NEGATED: Highlighted row Not [facility] Goals Date Patient Goal Desired Activity /State Mental Status Date Assessment Result Facility 12-26-2024 Cognitive function Voice/Name [facility] Work Phone: Clinical Notes 10-10-2024 to 12-26-2024 Note Date & Type Note Facility 12-26-2024 Consult note Note Date/Time December 26, 2024 2:35pm [facility] Medical Records Department [address] [place] [id number] Anesthesia Postop Eval II 12/26/24 1309 MR#: [id number] Acct: [id number] Name: ZULEYMA SPARROW Rep #:[id number] : 1980 44 From: Raúl Rodriguez MD PCP: Dr. Oliver Junior MD Status:R EG [facility] Y Race: C Location: [place] [address] Anesthesia Postop Eval I Sum Postop Eval Completion status Anesthesia document: Postop Eval 1 completed: Yes Anesthesia Postop Eval I Summary Anesthesia Postop Eval I Summary: Anesthesia Postop Eval I: Assessment Summary Airway patent Yes 12/26/24 12:56 [email or web address] Spontaneous unlabored Yes 12/26/24 12:56 [email or web address] respirations Mental status Awake 12/26/24 12:56 [email or web address] nausea No 12/26/24 12:56 [email or web address] Vomiting No 12/26/24 12:56 [email or web address] Anesthesia Postop Eval I: Fluid Summary Crystalloid volume administer 40 12/26/24 12:56 [email or web address] (ml) Colloids volume administered ( ml) Blood Product volume administered (ml) Total IV fluid infused 40 12/26/24 12:56 [email or web address] Anesthesia Postop Eval I: Summary Notes Anesthesia Complication Yes 12/26/24 12:56 [email or web address] Anesthesia Complication profuse movements 12/26/24 12:56 [email or web address] Comment: d/t etomidate Post-operative progress note Anesthesia: Postop Eval II Evaluation Mental status: Awake Pain Level: 0 nausea: No Vomiting: No 12/26/24 7793 <Electronically signed by Raúl Rodriguez MD > Date _ Raúl Rodriguez MD [facility] Signature: Date CC: ~ Signed [facility] Work Phone: 1(306) 416-971803-28-2025 Consult note Author Nghia Clay [facility] Note Date/Time December 26, 2024 12: 56pm [facility] Medical Records Department [address] [place] [address] Anesthesia Postop Eval I 12/26/24 1255 MR#: [id number] Acct: [id number] Name: ZULEYMA SPARROW Rep #:[id number] : 1980 44 From: Nghia Clay PCP: Dr. Oliver Junior MD Status:[facility] Y Race: C Location: [place] [address] Anesthesia: Postop Eval I Current Vital Signs Temperature: 97.4 F Pulse Rate: 83 Blood Pressure: 123/85 Respiratory Rate: 16 Pulse Ox: 98 Oxygen Delivery Method: Room Air Assessment Airway patent: Yes Spontaneous unlabored respirations: Yes Mental status: Awake nausea: No Vomiting: No Anesthesia Complication: Yes Anesthesia Complication Comment:: profuse movementsd/t etomidate Fluid Hydration Crystalloid volume administer (ml): 40 Total IV fluid infused: 40 Progress Note Anesthesia document: Postop Eval 1 completed: Yes 12/26/24 1256 <Electronically signed by Nghia Clay > Date _ Nghia Clay Cosigner Signature: Date CC: ~ Signed [facility] Work Phone: 1(818) 373-171803-28-2025 Consult note [facility] Medical Records Department [address] [place] [address] Anesthesia Postop Eval II 12/26/24 1309 MR#: [id number] Acct: [id number] Name: ZULEYMA SPARROW Rep #:[id number] : 1980 44 From: Raúl Rodriguez MD PCP: Dr. Oliver Junior MD Status:[place] [place] [facility] [place] Y Race: C Location: [place] [address] Anesthesia Postop Eval I Sum Postop Eval Completion status Anesthesia document: Postop Eval 1 completed: Yes Anesthesia Postop Eval I Summary Anesthesia Postop Eval I Summary: Anesthesia Postop Eval I: Assessment Summary Airway patent Yes 12/26/24 12:56 [email or web address] Spontaneous unlabored Yes 12/26/24 12:56 [email or web address] respirations Mental status Awake 12/26/24 12:56 [email or web address] nausea No 12/26/24 12:56 [email or web address] Vomiting No 12/26/24 12:56 [email or web address] Anesthesia Postop Eval I: Fluid Summary Crystalloid volume administer 40 12/26/24 12:56 [email or web address] (ml) Colloids volume administered ( ml) Blood Product volume administered (ml) Total IV fluid infused 40 12/26/24 12:56 [email or web address] Anesthesia Postop Eval I: Summary Notes Anesthesia Complication Yes 12/26/24 12:56 [email or web address] Anesthesia Complication profuse movements 12/26/24 12:56 [email or web address] Comment: d/t etomidate Post-operative progress note Anesthesia: Postop Eval II Evaluation Mental status: Awake Pain Level: 0 nausea: No Vomiting: No 12/26/24 1309 > Date _ Raúl Sunignmichael Signature: Date CC: ~ Signed [facility]03-28-2025 History and physical note Author Jairon Vanegas [facility] Note Date/Time December 26, 2024 12: 19pm [facility] Medical Records Department [address] [place] [address] History & Physical Exam 12/26/24 1214 MR#: [id number] Acct: [id number] Name: ZULEYMA SPARROW Rep #:[id number] : 1980 44 From: Jairon Vanegas DO PCP: Dr. Oliver Junior MD Status:[facility] Location: [place] [address] HPI - General General Date of Admission: 12/26/24 Date of Service: 12/26/24 Chief Complaint: Screening colonoscopy HPI Narrative ZULEYMA SPARROW, is a 44 F who presents for screening colonoscopy. She has never had a colonoscopy in the past. Her parents do have history of polyps but no history of colon cancer. [facility] Medical History Wears contact lenses Alcohol use Thyroid disease Migraine headache Dietary restriction Heartburn Former smoker Colon cancer screening Preventative health care Multiple allergies GERD (gastroesophageal reflux disease) Cough Irregular menses Vitamin deficiency Anxiety and depression Acne Lymphadenopathy of head and neck region Obesity (BMI 30-39.9) Abnormal EKG Anemia Thyroid nodule Hypersomnolence Hypertension Home Medications ?Medication ?Instructions ?Recorded ?Last Taken ?Type L.acidoph,paracasei,B.animalis 10 1 cell PO 04/01/21 U nknown History billion cell capsule (Digestive Advantage Advanced Probiotic) adapalene 0.1 % topical gel 1 applic topical QHS #45 g jimmy 02/15/22 Unknown Rx amlodipine 10 mg tablet 10 mg PO DAILY #90 tabs 01/3112/25/24 Rx valsartan 320 mg tablet 320 mg PO DAILY #90 tabs 12/25/24 Rx clindamycin phosphate 1 % topical 1 applic topical QAM AND QHS #60 06/09/24 Unknown Rx gel grams hydrochlorothiazide 25 mg tablet 25 mg PO QAM #90 tabs 06/10/24 12/25/24 Rx levothyroxine 88 mcg tablet 88 mcg PO DAILY #90 tabs 1 10/18/23 12/25/24 Rx omeprazole 40 mg capsule,delayed 40 mg PO DAILY #90 ca ps 10/06/24 Unknown Rx release cholecalciferol (vitamin D3) 50 50 mcg PO QDAY 5 Unknown History mcg (2,000 unit) capsule multivitamin 1 tab PO QDAY 10/22/24 Unkno wn History semaglutide 0.25 mg or 0.5 mg (2 0.25 mg subcut QWEEK 10/22/24 12/15/24 History mg/1.5 mL) subcutaneous pen injector turmeric 400 mg capsule 400 mg PO QDAY 10/22/24 Unkn own History Allergy/AdvReac Type Severity Reaction Status Date / Time Fish Containing Products Allergy Severe THROAT Verified 12/26/24 11:19 SWELLING shellfish derived Allergy Severe THROAT Verified 12/26/24 11:19 SWELLING Egg Derived Allergy Unknown Verified 12/26/24 11:19 milk (dairy) Allergy Throat Verified 12/26/24 11:19 issues, GERD Family History Father Hypertension Thyroid disorder Colon polyps Grandfather Lung cancer Grandmother Cancer Mother Colon polyps Surgical History S/P wisdom tooth extraction S/P Social History household members: spouse current occupational status: employed Smoking Status: Never smoker alcohol intake: never substance use type: does not use caffeine: Yes what type of physical activity do you participate in: aerobics and weight training frequency: 3-4 times per week seatbelt use: always do you feel safe at home: Yes additional social history: Woody SANTOS Constitutional Constitutional: Denies fatigue, fever(s), poor appetite, weight gain or weight loss Gastrointestinal Gastrointestinal: Denies belching, bloating, change in bowel habits, change in stool character, chewing difficulty, coffee ground emesis, constipation, cramping, diarrhea, dyspepsia, dysphagia, early satiety, excessive flatus, fecalincontinence, heartburn, hematemesis, hematochezia, hemorrhoids, loose stools, melena, nausea, odynophagia, rectal bleeding, tenesmus, vomiting or weight changes Vital Signs Vital Signs Vital Signs: 12/26/24 11:22 12/26/24 11:22 Temperature 98.4 F Temperature Source Temporal Pulse Rate 81 Respiratory Rate 16 Respiratory Pattern Normal Blood Pressure 152/104 H Blood Pressure Mean 120 Blood Pressure Source Monitor Blood Pressure Position Sitting Blood Pressure Location Left Arm Pulse Ox 100 Oxygen Delivery Method Room Air Weight Weight: 187 lb 13.341 oz Body Mass Index (BMI) 33.3 Physical Exam Const alert, oriented x3, no apparent distress and healthy appearing General Appearance: cooperative GI normal to inspection, nondistended, normoactive bowel sounds, soft to palpation,non-tender and non-distended Percussion: normal to percussion Rectal Exam: deferred Results Lab / Micro Data Labs: Laboratory Results - last 24 hr 12/26/24 11:00: Urine Test Negative Assessment & Plan Assessment/Plan (1) Colon cancer screening: PLAN: She was explained alternatives, risk, benefits including not withstanding bleeding, infection, sepsis, perforation, need for charge and . She have an ASA of 3. 12/26/24 1219 <Electronically signed by Jairon Vanegas DO> Cosigner Signature (if applicable): CC: Dr. Oliver Junior MD; Jairon Vanegas DO~ Signed [facility] Work Phone: 1(780) 273-233203-28-2025 Consult note Author Raúl Rodriguez [facility] Note Date/Time December 26, 2024 11: 16am [facility] Medical Records Department [address] [place] [address] Pre-Anesthesia Evaluation 12/26/24 1115 MR#: [id number] Acct: [id number] Name: ZULEYMA SPARROW Rep #:[id number] : 1980 44 From: Raúl Rodriguez MD PCP: Dr. Oliver Junior MD Status:R EG SD Y Race: C Location: [place] [address] ASA Classification* ASA Classification ASA Classification: 2 Assessment & Plan Anesthesia* Anesthesia Assessment Anesthesia Assessment: Discussed sedation and/or anesthesia options, risks, benefits, and alternatives with patient/parents/legal guardian/POA. Questions invited. The patient/parents/legal guardian/POA seems to understand and agrees to proceedwith anesthesia plan. Reviewed the physical assessment, medical history, allergy history and patient home medications list prior to surgery/procedure/anesthetic and documented any changes. Performed airway and anesthesia risk assessments. Anesthesia Type Anesthesia Type: MAC Anesthesia Focused Assessment* Airway Assessment Mouth opens: >3 cm Mallampati Score: II Focused Labs Anesthesia Preop lab: CBC WBC 8.0 K/mm3 (4.4-11.0) 01/11/24 09:57 01/11/24 RBC 4.85 M/mm3 (4.2-5.4) 01/11/24 09:57 01/11/24 Hgb 14.4 g/dL (12.0-15.0) 01/11/24 09:57 01/11/24 Hct 43.3 % (37-47) 01/11/24 09:57 01/11/24 Plt Count 217 K/mm3 (150-450) 01/11/24 09:57 01/11/24 CHEMISTRY Potassium 3.7 mmol/L (3.5-5.1) 11/06/24 10:36 11/06/24 Sodium 137 mmol/L (136-145) 11/06/24 10:36 11/06/24 BUN 12 mg/dL (7-18) 11/06/24 10:36 11/06/24 Creatinine 0.83 mg/dL (0.55-1.02) 11/06/24 10:36 11/06/24 Glucose 81 mg/dL (74-106) 11/06/24 10:36 11/06/24 TSH 5.290 uIU/mL (0.358-3.740) H 11/06/24 10:36 COAG Urine Test Pending 12/26/24 11:00 12/26/24 Pre-Assessment Diagnosis/Proposed Procedure Planned Operative Procedure(s): Colonoscopy - Open Access Anesthesia History Anesthesia History - shirt bander: Anesthesia History - shirt bander Hx Hospitalization No 12/22/24 15:50 Any Problems With Anesthesia No 12/22/24 15:50 Cholinesterase deficiency No 12/22/24 15:50 You/Your Family Experience No 12/22/24 15:50 fever (hyperthermia) with Relationship Recent Exposure to Contagious Disease Does patient have nerve No 12/22/24 15:50 stimulator Patient instructed to have device shut off --Does patient have Pacemaker or ICD? When Was Last Pacemaker Check QUESTION #4 FULL TEXT: You/Your Family Experience fever (hyperthermia) with Anesthesia Last Oral Intake Last Oral intake: Last Oral Intake NPO since Meds taken in AM with sips of water? Meds patient instructed to take am of surgery PONV PONV - shirt bander: PONV - shirt bander Female Yes 12/22/24 15:50 HX of Motion Sickness Yes 12/22/24 15:50 HX of N/V After Surgery Yes 12/22/24 15:50 Non-Smoker Yes 12/22/24 15:50 Duration of Surgery greater No 12/22/24 15:50 than 60 minutes Number of Risk Factors 4 12/22/24 15:50 PONV Score Severe Risk 12/22/24 15:50 Height & Weight Height & Weight: Anesthesia: Height & Weight Height 5 ft 3 in 10/22/24 11:16 Respiratory Assessment Respiratory Assessment - shirt bander: Respiratory Tract Infection Hx - shirt bander Hx Respiratory Tract Infection No 12/22/24 15:50 STOP Sleep Apnea STOP Sleep Apnea - shirt bander: STOP Sleep Apnea - shirt bander Hx Hypertension Yes 12/22/24 15:50 Hx Sleep Apnea No 12/22/24 15:50 CPAP BIPAP Do you snore loudly (louder No 12/22/24 15:50 than talking or can be heard Do you often feel tired/ No 12/22/24 15:50 fatigued/ sleepy during daytime? Has anyone observed you stop No 12/22/24 15:50 breathing during sleep? STOP Results Negative 12/22/24 15:50 QUESTION #5 FULL TEXT : Do you snore loudly (louder than talking or can be heard through closed doors)? 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 Use History - shirt bander: Tobacco Use History - shirt bander Tobacco Use Smoking Status Never smoker 12/22/24 15:50 Hx Tobacco Use No 12/22/24 15:50 Years Smoking Packs Smoked per Day Smoking Cessation Date was within the last 15 years Hx Smoking Cessation Date Hx Smoking Cessation Counseling Hematologic Medial History Hematologic Hx - shirt bander: Hematologic Medical Hx - dietetic technician Hx of Blood Transfusion No 12/22/24 15:50 Hx of Transfusion in last 3 No 12/22/24 15:50 Months Date of Last Transfusion (if within last 3 months) Ever experience any problems No 12/22/24 15:50 with transfusion(s)? Specify any problems Hx of Preganancy in last 3 No 12/22/24 15:50 Months Nurse Filling Out Transfusion JZOLLINGE 12/22/24 15:50 & Questions: Date: 12/22/24 12/22/24 15:50 Time: 15:54 12/22/24 15:50 Patient unable to answer at this time (ie. confused, unrespo /Reproduction History /Reproductive History - shirt bander: /Reproductive Hx- shirt bander Hx Now No 12/22/24 15:50 Gestational Age (in weeks): EDC: Hx Hx Para Hx Section SAB No 12/22/24 15:50 PFSH Medical History Wears contact lenses Alcohol use Thyroid disease Migraine headache Dietary restriction Heartburn Former smoker Colon cancer screening Preventative health care Multiple allergies GERD (gastroesophageal reflux disease) Cough Irregular menses Vitamin deficiency Anxiety and depression Acne Lymphadenopathy of head and neck region Obesity (BMI 30-39.9) Abnormal EKG Anemia Thyroid nodule Hypersomnolence Hypertension Home Medications ?Medication ?Instructions ?Recorded ?Last Taken ?Type L.acidoph,paracasei,B.animalis 10 1 cell PO 04/01/21 U nknown History billion cell capsule (Digestive Advantage Advanced Probiotic) adapalene 0.1 % topical gel 1 applic topical QHS #45 g jimmy 02/15/22 Unknown Rx amlodipine 10 mg tablet 10 mg PO DAILY #90 tabs 01/31 Unknown Rx valsartan 320 mg tablet 320 mg PO DAILY #90 tabs Unknown Rx clindamycin phosphate 1 % topical 1 applic topical QAM AND QHS #60 06/09/24 Unknown Rx gel grams hydrochlorothiazide 25 mg tablet 25 mg PO QAM #90 tabs 06/10/24 Unknown Rx levothyroxine 88 mcg tablet 88 mcg PO DAILY #90 tabs 1 10/18/23 Unknown Rx omeprazole 40 mg capsule,delayed 40 mg PO DAILY #90 ca ps 10/06/24 Unknown Rx release cholecalciferol (vitamin D3) 50 50 mcg PO QDAY 5 Unknown History mcg (2,000 unit) capsule multivitamin 1 tab PO QDAY 10/22/24 Unkno wn History semaglutide 0.25 mg or 0.5 mg (2 0.25 mg subcut QWEEK 10/22/24 12/15/24 History mg/1.5 mL) subcutaneous pen injector turmeric 400 mg capsule 400 mg PO QDAY 10/22/24 Unkn own History Allergy/AdvReac Type Severity Reaction Status Date / Time Fish Containing Products Allergy Severe THROAT Verified 12/22/24 15:37 SWELLING shellfish derived Allergy Severe THROAT Verified 12/22/24 15:37 SWELLING Egg Derived Allergy Unknown Verified 12/22/24 15:37 milk (dairy) Allergy Throat Verified 12/22/24 15:37 issues, GERD Family History Father Hypertension Thyroid disorder Colon polyps Grandfather Lung cancer Grandmother Cancer Mother Colon polyps Surgical History S/P wisdom tooth extraction S/P Social History household members: spouse current occupational status: employed Smoking Status: Never smoker alcohol intake: never substance use type: does not use caffeine: Yes what type of physical activity do you participate in: aerobics and weight training frequency: 3-4 times per week seatbelt use: always do you feel safe at home: Yes additional social history: Woody Review of Systems (Anesthesia) ROS Narrative System reviewed and no additional complaints, except as documented. 12/26/24 1116 <Electronically signed by Raúl Rodriguez MD > Date _ Raúl Rodriguez MD Cosigner Signature: Date CC: ~ Signed [facility] Work Phone: [phone]) 982-189903-28-2025 Consult note [facility] Medical Records Department [address] [place] [address] Anesthesia Postop Eval I 12/26/24 1255 MR#: [id number] Acct: [id number] Name: ZULEYMA SPARROW Rep #:[id number] : 1980 44 From: Nghia Clay PCP: Dr. Oliver Junior MD Status:R [facility] Y Race: C Location: [place] [address] Anesthesia: Postop Eval I Current Vital Signs Temperature: 97.4 F Pulse Rate: 83 Blood Pressure: 123/85 Respiratory Rate: 16 Pulse Ox: 98 Oxygen Delivery Method: Room Air Assessment Airway patent: Yes Spontaneous unlabored respirations: Yes Mental status: Awake nausea: No Vomiting: No Anesthesia Complication: Yes Anesthesia Complication Comment:: profuse movementsd/t etomidate Fluid Hydration Crystalloid volume administer (ml): 40 Total IV fluid infused: 40 Progress Note Anesthesia document: Postop Eval 1 completed: Yes 12/26/24 1256 > Date _ Nghia Nava Signature: Date CC: ~ Signed [facility]03-28-2025 Procedure note [facility] Medical Records Department [address] [place] [address] Colonoscopy Report MR#: [id number] Acct: [id number] Name: ZULEYMA SPARROW Rep #:[id number] : 1980 44 From: Jairon Vanegas DO PCP: Dr. Oliver Junior MD Status:R [facility] Patient Name: Zuleyma Sparrow Procedure Date: 12/26/2024 11:52 AM Date of : 1980 Age: 44 Procedure: Colonoscopy Indications: Screening for colorectal malignant neoplasm Providers: Jairon Vanegas DO Referring MD: Oliver Junior MD Medicines: Monitored Anesthesia Care Patient Profile: This is a 44 year old female. Refer to note in patient chart for documentation of history and physical. Last Colonoscopy: none. The patient's first colonoscopy is today. Complications: No immediate complications. Procedure: Pre-Anesthesia Assessment: - Prior to the procedure, a History and Physical was performed, and patient medications and allergies were reviewed. The patient is competent. The risks and benefits of the procedure and the sedation options and risks were discussed with the patient. All questions were answered and informed consent was obtained. Patient identification and proposed procedure were verified by the physician in the pre-procedure area. Mental Status Examination: alert and oriented. Airway Examination: normal oropharyngeal airway and neck mobility. Respiratory Examination: clear to auscultation. CV Examination: normal. ASA Grade Assessment: II - A patient with mild systemic disease. After reviewing the risks and benefits, the patient was deemed in satisfactory condition to undergo the procedure. The anesthesia plan was to use monitored anesthesia care (MAC). Immediately prior to administration of medications, the patient was re-assessed for adequacy to receive sedatives. The heart rate, respiratory rate, oxygen saturations, blood pressure, adequacy of pulmonary ventilation, and response to care were monitored throughout the procedure. The physical status of the patient was re-assessed after the procedure. After I obtained informed consent, the scope was passed under direct vision. Throughout the procedure, the patient's blood pressure, pulse, and oxygen saturations were monitored continuously. The Colonoscope was introduced through the anus and advanced to the cecum, identified by the appendiceal orifice, IC valve and transillumination. The colonoscopy was performed without difficulty. The patient tolerated the procedure well. The quality of the bowel preparation was adequate. The ileocecal valve, appendiceal orifice, and rectum were photographed. Scope In: 12:30:57 PM Scope Withdrawal Time 0 hours 8 minutes 44 seconds Scope Out: 12:43:43 PM Total Procedure Duration Time 0 hours 12 minutes 46 seconds Findings: The perianal and digital rectal examinations were normal. A 5 mm polyp was found in the descending colon. The polyp was sessile. The polyp was removed with a jumbo cold forceps. Resection and retrieval were complete. Verification of patient identification for the specimen was done. Estimated blood loss was minimal. The exam was otherwise without abnormality on direct and retroflexion views. The exam was otherwise without abnormality on direct and retroflexion views. Impression: - One 5 mm polyp in the descending colon, removed with a jumbo cold forceps. Resected and retrieved. - The examination was otherwise normal on direct and retroflexion views. - The examination was otherwise normal on direct and retroflexion views. Recommendation: - Discharge patient to home. - Resume previous diet. - Continue present medications. - Await pathology results. - Repeat colonoscopy in 5 years for surveillance. Procedure Code(s): --- Professional --- 60865, Colonoscopy, flexible; with biopsy, single or multiple CPT copyright 2021 [employer]. All rights reserved. The codes documented in this report are preliminary and upon wholesale account manager review may be revised to meet current compliance requirements. Jairon Vanegas DO 12/26/2024 12:54:00 PM This report has been signed electronically. Number of Addenda: 0 Note Initiated On: 12/26/2024 11:52 AM 12/26/24 1254 Date _ Jairon Vanegas DO Cosigner Signature: Date (if indicated) CC: Dr. Oliver Junior MD; Jairon Vanegas DO ~ Date Dictated: 12/26/24 1152 Date Transcribed: Hogshead Head Matcher: RF Signed [facility]03-28-2025 Procedure note [facility] Medical Records Department [address] [place] [address] Operative Report - CC Letter MR#: [id number] Acct: [id number] Name: ZULEYMA SPARROW Rep #:[id number] : 1980 44 From: Jairon Vanegas DO PCP: Dr. Oliver Junior MD Status:R [facility] 12/26/2024 Oliver Junior MD [address] [place] [address] [place] [address] Re : Colonoscopy procedure for Zuleyma Sparrow Dear Dr. Junior This procedure was performed on Thursday, December 26, 2024. My impressions and recommendations are as follows: Impressions : - One 5 mm polyp in the descending colon, removed with a jumbo cold forceps. Resected and retrieved. - The examination was otherwise normal on direct and retroflexion views. - The examination was otherwise normal on direct and retroflexion views. Recommendations : - Discharge patient to home. - Resume previous diet. - Continue present medications. - Await pathology results. - Repeat colonoscopy in 5 years for surveillance. My findings are described in the full procedure note, which is enclosed. If I can be of further assistance, please feel free to contact me at . Sincerely, Jairon Vanegas DO 12/26/2024 12:54:00 PM This report has been signed electronically. 12/26/24 1254 Date _ Jairon Vanegas DO Cosigner Signature: Date (if indicated) CC: Dr. Oliver Junior MD; Jairon Vanegas DO ~ Date Dictated: 12/26/24 1152 Date Transcribed: Hogshead Head Matcher: RF Signed [facility]03-28-2025 Evaluation note* Diagnosis Onset Date Resolution Status Admit Date Colon cancer screening acute [facility] 2024 10:44am [facility] Work Phone: 1(227) 599-315703-28-2025 Evaluation note* Diagnosis Onset Date Resolution Status Admit Date Colon cancer screening acute [facility] 2024 10:44am Hypersomnolence acute March 2:41pm Hypertension chronic March 12, 025 2:41pm Hypothyroidism chronic March 12, 2025 2:41pm Obesity (BMI 30-39.9) chronic Mar 2:41pm [facility] Work Phone: 1(403) 594-194703-28-2025 History and physical note [facility] Medical Records Department [address] [place] [address] History & Physical Exam 12/26/24 1214 MR#: [id number] Acct: [id number] Name: ZULEYMA SPARROW Rep #:[id number] : 1980 44 From: Jairon Vanegas DO PCP: Dr. Oliver Junior MD Status:[facility] Location: [place] [address] HPI - General General Date of Admission: 12/26/24 Date of Service: 12/26/24 Chief Complaint: Screening colonoscopy HPI Narrative ZULEYMA SPARROW, is a 44 F who presents for screening colonoscopy. She has never had a colonoscopy in the past. Her parents do have history of polyps but no history of colon cancer. [facility] Medical History Wears contact lenses Alcohol use Thyroid disease Migraine headache Dietary restriction Heartburn Former smoker Colon cancer screening Preventative health care Multiple allergies GERD (gastroesophageal reflux disease) Cough Irregular menses Vitamin deficiency Anxiety and depression Acne Lymphadenopathy of head and neck region Obesity (BMI 30-39.9) Abnormal EKG Anemia Thyroid nodule Hypersomnolence Hypertension Home Medications ?Medication ?Instructions ?Recorded ?Last Taken ?Type L.acidoph,paracasei,B.animalis 10 1 cell PO 04/01/21 U nknown History billion cell capsule (Digestive Advantage Advanced Probiotic) adapalene 0.1 % topical gel 1 applic topical QHS #45 g jimmy 02/15/22 Unknown Rx amlodipine 10 mg tablet 10 mg PO DAILY #90 tabs 01/3112/25/24 Rx valsartan 320 mg tablet 320 mg PO DAILY #90 tabs 12/25/24 Rx clindamycin phosphate 1 % topical 1 applic topical QAM AND QHS #60 06/09/24 Unknown Rx gel grams hydrochlorothiazide 25 mg tablet 25 mg PO QAM #90 tabs 06/10/24 12/25/24 Rx levothyroxine 88 mcg tablet 88 mcg PO DAILY #90 tabs 1 10/18/23 12/25/24 Rx omeprazole 40 mg capsule,delayed 40 mg PO DAILY #90 ca ps 10/06/24 Unknown Rx release cholecalciferol (vitamin D3) 50 50 mcg PO QDAY 5 Unknown History mcg (2,000 unit) capsule multivitamin 1 tab PO QDAY 10/22/24 Unkno wn History semaglutide 0.25 mg or 0.5 mg (2 0.25 mg subcut QWEEK 10/22/24 12/15/24 History mg/1.5 mL) subcutaneous pen injector turmeric 400 mg capsule 400 mg PO QDAY 10/22/24 Unkn own History Allergy/AdvReac Type Severity Reaction Status Date / Time Fish Containing Products Allergy Severe THROAT Verified 12/26/24 11:19 SWELLING shellfish derived Allergy Severe THROAT Verified 12/26/24 11:19 SWELLING Egg Derived Allergy Unknown Verified 12/26/24 11:19 milk (dairy) Allergy Throat Verified 12/26/24 11:19 issues, GERD Family History Father Hypertension Thyroid disorder Colon polyps Grandfather Lung cancer Grandmother Cancer Mother Colon polyps Surgical History S/P wisdom tooth extraction S/P Social History household members: spouse current occupational status: employed Smoking Status: Never smoker alcohol intake: never substance use type: does not use caffeine: Yes what type of physical activity do you participate in: aerobics and weight training frequency: 3-4 times per week seatbelt use: always do you feel safe at home: Yes additional social history: Woody SANTOS Constitutional Constitutional: Denies fatigue, fever(s), poor appetite, weight gain or weight loss Gastrointestinal Gastrointestinal: Denies belching, bloating, change in bowel habits, change in stool character, chewing difficulty, coffee ground emesis, constipation, cramping, diarrhea, dyspepsia, dysphagia, earlysatiety, excessive flatus, fecalincontinence, heartburn, hematemesis, hematochezia, hemorrhoids, loose stools, melena, nausea, odynophagia, rectal bleeding, tenesmus, vomiting or weight changes Vital Signs Vital Signs Vital Signs: 12/26/24 11:22 12/26/24 11:22 Temperature 98.4 F Temperature Source Temporal Pulse Rate 81 Respiratory Rate 16 Respiratory Pattern Normal Blood Pressure 152/104 H Blood Pressure Mean 120 Blood Pressure Source Monitor Blood Pressure Position Sitting Blood Pressure Location Left Arm Pulse Ox 100 Oxygen Delivery Method Room Air Weight Weight: 187 lb 13.341 oz Body Mass Index (BMI) 33.3 Physical Exam Const alert, oriented x3, no apparent distress and healthy appearing General Appearance: cooperative GI normal to inspection, nondistended, normoactive bowel sounds, soft to palpation,non-tender and non-distended Percussion: normal to percussion Rectal Exam: deferred Results Lab / Micro Data Labs: Laboratory Results - last 24 hr 12/26/24 11:00: Urine Test Negative Assessment & Plan Assessment/Plan (1) Colon cancer screening: PLAN: She was explained alternatives, risk, benefits including not withstanding bleeding, infection, sepsis, perforation, need for charge and . She have an ASA of 3. 12/26/24 1219 Cosigner Signature (if applicable): CC: Dr. Oliver Junior MD; Jairon Vanegas DO~ Signed [facility]03-28-2025 [facility] Medical Records Department [address] [place] [address] History Physical Exam 12/26/24 1214 MR#: [id number] Acct: [id number] Name: ZULEYMA SPARROW Rep #: [id number] : 1980 44 From: Jairon Vangeas DO PCP: Dr. Oliver Junior MD Status:[facility] Location: [place] [address] HPI - General General Date of Admission: 12/26/24 Date of Service: 12/26/24 Chief Complaint: Screening colonoscopy HPI Narrative ZULEYMA SPARROW, is a 44 F who presents for screening colonoscopy. She has never had a colonoscopy in the past. Her parents do have history of polyps but no history of colon cancer. [facility] Medical History Wears contact lenses Alcohol use Thyroid disease Migraine headache Dietary restriction Heartburn Former smoker Colon cancer screening Preventative health care Multiple allergies GERD (gastroesophageal reflux disease) Cough Irregular menses Vitamin deficiency Anxiety and depression Acne Lymphadenopathy of head and neck region Obesity (BMI 30-39.9) Abnormal EKG Anemia Thyroid nodule Hypersomnolence Hypertension Home Medications ???Medication ???Instructions ???Recorded ???Last Taken ???Type L.acidoph,paracasei,B.animalis 10 1 cell PO 04/01/21 Unknown Histor y billion cell capsule (Digestive Advantage Advanced Probiotic) adapalene 0.1 % topical gel 1 applic topical QHS #45 grams Unknown Rx amlodipine 10 mg tablet 10 mg PO DAILY #90 tabs 02/27/23 0 12/25/24 Rx valsartan 320 mg tablet 320 mg PO DAILY #90 tabs 02/27/23 12/25/24 Rx clindamycin phosphate 1 % topical 1 applic topical QAM AND QHS #60 06/09/24 Unknown Rx gel grams hydrochlorothiazide 25 mg tablet 25 mg PO QAM #90 tabs 06/10/24 Rx levothyroxine 88 mcg tablet 88 mcg PO DAILY #90 tabs 08/18/24 12/25/24 Rx omeprazole 40 mg capsule,delayed 40 mg PO DAILY #90 caps 10/06/24 U nknown Rx release cholecalciferol (vitamin D3) 50 50 mcg PO QDAY 10/22/24 Unknown Hi story mcg (2,000 unit) capsule multivitamin 1 tab PO QDAY 10/22/24 Unknown His tory semaglutide 0.25 mg or 0.5 mg (2 0.25 mg subcut QWEEK 10/22/2411/29 History mg/1.5 mL) subcutaneous pen injector turmeric 400 mg capsule 400 mg PO QDAY 10/22/24 Unknown Hi story Allergy/AdvReac Type Severity Reaction Status Date / Time Fish Containing Products Allergy Severe THROAT Verified 12/26/24 11:19 SWELLING shellfish derived Allergy Severe THROAT Verified 12/26/24 11:19 SWELLING Egg Derived Allergy Unknown Verified 12/26/24 11:19 milk (dairy) Allergy Throat Verified 12/26/24 11:19 issues, GERD Family History Father Hypertension Thyroid disorder Colon polyps Grandfather Lung cancer Grandmother Cancer Mother Colon polyps Surgical History S/P wisdom tooth extraction S/P Social History household members: spouse current occupational status: employed Smoking Status: Never smoker alcohol intake: never substance use type: does not use caffeine: Yes what type of physical activity do you participate in: aerobics and weight training frequency: 3-4 times per week seatbelt use: always do you feel safe at home: Yes additional social history: Woody SANTOS Constitutional Constitutional: Denies fatigue, fever(s), poor appetite, weight gain or weight loss Gastrointestinal Gastrointestinal: Denies belching, bloating, change in bowel habits, change in stool character, chewing difficulty, coffee ground emesis, constipation, cramping, diarrhea, dyspepsia, dysphagia, early satiety, excessive flatus, fecal incontinence, heartburn, hematemesis, hematochezia, hemorrhoids, loose stools, melena, nausea, odynophagia, rectal bleeding, tenesmus, vomiting or weight changes Vital Signs Vital Signs Vital Signs: 12/26/24 11:22 12/26/24 11:22 Temperature 98.4 F Temperature Source Temporal Pulse Rate 81 Respiratory Rate 16 Respiratory Pattern Normal Blood Pressure 152/104 H Blood Pressure Mean 120 Blood Pressure Source Monitor Blood Pressure Position Sitting Blood Pressure Location Left Arm Pulse Ox 100 Oxygen Delivery Method Room Air Weight Weight: 187 lb 13.341 oz Body Mass Index (BMI) 33.3 Physical Exam Const alert, oriented x3, no apparent distress and healthy appearing General Appearance: cooperative GI normal to inspection, nondistended, normoactive bowel sounds, soft to palpation, non-tender and non- distended Percussion: normal to percussion Rectal Exam: deferred Results Lab / Micr (more content not included)...[facility]03-28-2025 Consult note [facility] Medical Records Department [address] [place] [address] Pre-Anesthesia Evaluation 12/26/24 1115 MR#: [id number] Acct: [id number] Name: ZULEYMA SPARROW Rep #:[id number] : 1980 44 From: Raúl Rodriguez MD PCP: Dr. Oliver Junior MD Status:R [facility] Y Race: C Location: [place] [address] ASA Classification* ASA Classification ASA Classification: 2 Assessment & Plan Anesthesia* Anesthesia Assessment Anesthesia Assessment: Discussed sedation and/or anesthesia options, risks, benefits, and alternatives with patient/parents/legal guardian/POA. Questions invited. The patient/parents/legal guardian/POA seems to understand and agrees to proceedwith anesthesia plan. Reviewed the physical assessment, medical history, allergy history and patient home medications list prior to surgery/procedure/anesthetic and documented any changes. Performed airway and anesthesia risk assessments. Anesthesia Type Anesthesia Type: MAC Anesthesia Focused Assessment* Airway Assessment Mouth opens: >3 cm Mallampati Score: II Focused Labs Anesthesia Preop lab: CBC WBC 8.0 K/mm3 (4.4-11.0) 01/11/24 09:57 01/11/24 RBC 4.85 M/mm3 (4.2-5.4) 01/11/24 09:57 01/11/24 Hgb 14.4 g/dL (12.0-15.0) 01/11/24 09:57 01/11/24 Hct 43.3 % (37-47) 01/11/24 09:57 01/11/24 Plt Count 217 K/mm3 (150-450) 01/11/24 09:57 01/11/24 CHEMISTRY Potassium 3.7 mmol/L (3.5-5.1) 11/06/24 10:36 11/06/24 Sodium 137 mmol/L (136-145) 11/06/24 10:36 11/06/24 BUN 12 mg/dL (7-18) 11/06/24 10:36 11/06/24 Creatinine 0.83 mg/dL (0.55-1.02) 11/06/24 10:36 11/06/24 Glucose 81 mg/dL (74-106) 11/06/24 10:36 11/06/24 TSH 5.290 uIU/mL (0.358-3.740) H 11/06/24 10:36 COAG Urine Test Pending 12/26/24 11:00 12/26/24 Pre-Assessment Diagnosis/Proposed Procedure Planned Operative Procedure(s): Colonoscopy - Open Access Anesthesia History Anesthesia History - shirt bander: Anesthesia History - shirt bander Hx Hospitalization No 12/22/24 15:50 Any Problems With Anesthesia No 12/22/24 15:50 Cholinesterase deficiency No 12/22/24 15:50 You/Your Family Experience No 12/22/24 15:50 fever (hyperthermia) with Relationship Recent Exposure to Contagious Disease Does patient have nerve No 12/22/24 15:50 stimulator Patient instructed to have device shut off --Does patient have Pacemaker or ICD? When Was Last Pacemaker Check QUESTION #4 FULL TEXT: You/Your Family Experience fever (hyperthermia) with Anesthesia Last Oral Intake Last Oral intake: Last Oral Intake NPO since Meds taken in AM with sips of water? Meds patient instructed to take am of surgery PONV PONV - shirt bander: PONV - shirt bander Female Yes 12/22/24 15:50 HX of Motion Sickness Yes 12/22/24 15:50 HX of N/V After Surgery Yes 12/22/24 15:50 Non-Smoker Yes 12/22/24 15:50 Duration of Surgery greater No 12/22/24 15:50 than 60 minutes Number of Risk Factors 4 12/22/24 15:50 PONV Score Severe Risk 12/22/24 15:50 Height & Weight Height & Weight: Anesthesia: Height & Weight Height 5 ft 3 in 10/22/24 11:16 Respiratory Assessment Respiratory Assessment - shirt bander: Respiratory Tract Infection Hx - shirt bander Hx Respiratory Tract Infection No 12/22/24 15:50 STOP Sleep Apnea STOP Sleep Apnea - shirt bander: STOP Sleep Apnea - shirt bander Hx Hypertension Yes 12/22/24 15:50 Hx Sleep Apnea No 12/22/24 15:50 CPAP BIPAP Do you snore loudly (louder No 12/22/24 15:50 than talking or can be heard Do you often feel tired/ No 12/22/24 15:50 fatigued/ sleepy during daytime? Has anyone observed you stop No 12/22/24 15:50 breathing during sleep? STOP Results Negative 12/22/24 15:50 QUESTION #5 FULL TEXT : Do you snore loudly (louder than talking or can be heard through closeddoors)? 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 Use History - shirt bander: Tobacco Use History - shirt bander Tobacco Use Smoking Status Never smoker 12/22/24 15:50 Hx Tobacco Use No 12/22/24 15:50 Years Smoking Packs Smoked per Day Smoking Cessation Date was within the last 15 years Hx Smoking Cessation Date Hx Smoking Cessation Counseling Hematologic Medial History Hematologic Hx - shirt bander: Hematologic Medical Hx - dietetic technician Hx of Blood Transfusion No 12/22/24 15:50 Hx of Transfusion in last 3 No 12/22/24 15:50 Months Date of Last Transfusion (if within last 3 months) Ever experience any problems No 12/22/24 15:50 with transfusion(s)? Specify any problems Hx of Preganancy in last 3 No 12/22/24 15:50 Months Nurse Filling Out Transfusion JZOLLINGE 12/22/24 15:50 & Questions: Date: 12/22/24 12/22/24 15:50 Time: 15:54 12/22/24 15:50 Patient unable to answer at this time (ie. confused, unrespo /Reproduction History /Reproductive History - shirt bander: /Reproductive Hx- shirt bander Hx Now No 12/22/24 15:50 Gestational Age (in weeks): EDC: Hx Hx Para Hx Section SAB No 12/22/24 15:50 PFSH Medical History Wears contact lenses Alcohol use Thyroid disease Migraine headache Dietary restriction Heartburn Former smoker Colon cancer screening Preventative health care Multiple allergies GERD (gastroesophageal reflux disease) Cough Irregular menses Vitamin deficiency Anxiety and depression Acne Lymphadenopathy of head and neck region Obesity (BMI 30-39.9) Abnormal EKG Anemia Thyroid nodule Hypersomnolence Hypertension Home Medications ?Medication ?Instructions ?Recorded ?Last Taken ?Type L.acidoph,paracasei,B.animalis 10 1 cell PO 04/01/21 U nknown History billion cell capsule (Digestive Advantage Advanced Probiotic) adapalene 0.1 % topical gel 1 applic topical QHS #45 g jimmy 02/15/22 Unknown Rx amlodipine 10 mg tablet 10 mg PO DAILY #90 tabs 01/31 Unknown Rx valsartan 320 mg tablet 320 mg PO DAILY #90 tabs Unknown Rx clindamycin phosphate 1 % topical 1 applic topical QAM AND QHS #60 06/09/24 Unknown Rx gel grams hydrochlorothiazide 25 mg tablet 25 mg PO QAM #90 tabs 06/10/24 Unknown Rx levothyroxine 88 mcg tablet 88 mcg PO DAILY #90 tabs 1 10/18/23 Unknown Rx omeprazole 40 mg capsule,delayed 40 mg PO DAILY #90 ca ps 10/06/24 Unknown Rx release cholecalciferol (vitamin D3) 50 50 mcg PO QDAY 5 Unknown History mcg (2,000 unit) capsule multivitamin 1 tab PO QDAY 10/22/24 Unkno wn History semaglutide 0.25 mg or 0.5 mg (2 0.25 mg subcut QWEEK 10/22/24 12/15/24 History mg/1.5 mL) subcutaneous pen injector turmeric 400 mg capsule 400 mg PO QDAY 10/22/24 Unkn own History Allergy/AdvReac Type Severity Reaction Status Date / Time Fish Containing Products Allergy Severe THROAT Verified 12/22/24 15:37 SWELLING shellfish derived Allergy Severe THROAT Verified 12/22/24 15:37 SWELLING Egg Derived Allergy Unknown Verified 12/22/24 15:37 milk (dairy) Allergy Throat Verified 12/22/24 15:37 issues, GERD Family History Father Hypertension Thyroid disorder Colon polyps Grandfather Lung cancer Grandmother Cancer Mother Colon polyps Surgical History S/P wisdom tooth extraction S/P Social History household members: spouse current occupational status: employed Smoking Status: Never smoker alcohol intake: never substance use type: does not use caffeine: Yes what type of physical activity do you participate in: aerobics and weight training frequency: 3-4 times per week seatbelt use: always do you feel safe at home: Yes additional social history: Woody Review of Systems (Anesthesia) ROS Narrative System reviewed and no additional complaints, except as documented. 12/26/24 1116 > Date _ Raúl Rodriguez MD Cosigner Signature: Date CC: ~ Signed [facility]01-10-2025 Evaluation note* Diagnosis Onset Date Resolution Status Admit Date Colon cancer screening acute [facility] 2024 8:06am Preventative health care acute October 10, 2024 8:06am Colon cancer screening acute [facility] 2024 10:44am [facility] Work Phone: Evaluation note* Diagnosis Onset Date Resolution Status Acne chronic Hypertension [facility] Work Phone: Evaluation note* Diagnosis Onset Date Resolution Status Acne chronic Hypertension chronic Hypertension chronic Hypothyroidism [facility] Work Phone: Evaluation note* Diagnosis Onset Date Resolution Status Anxiety and depression acute Hypothyroidism chronic Anxiety and depression acute Irregular menses acute Vitamin deficiency acute Hypothyroidism [facility] Work Phone: Evaluation note* Diagnosis Onset Date Resolution Status Possible exposure to STD non eactive Encounter for routine gynecological examination noneactive [facility] Work Phone: Evaluation note* Diagnosis Onset Date Resolution Status Possible exposure to STD non eactive Encounter for routine gynecological examination noneactive Acute bacterial sinusitis ac [place] [facility] Work Phone: Evaluation note* Diagnosis Onset Date Resolution Status Possible exposure to STD non eactive Encounter for routine gynecological examination noneactive Acute bacterial sinusitis ac [place] Cough present for greater than 3 weeks noneactive [facility] Work Phone: Evaluation note* Diagnosis Onset Date Resolution Status Acne chronic GERD (gastroesophageal reflux disease) chronic Hypertension chronic Hypothyroidism chronic Multiple allergies chronic [facility] Work Phone: Evaluation note* Diagnosis Onset Date Resolution Status Possible exposure to STD non eactive Encounter for routine gynecological examination noneactive Acute bacterial sinusitis ac [place] Cough present for greater than 3 weeks noneactive Cough acute Anxiety and depression chron ic Hypertension chronic Hypothyroidism chronic [facility] Work Phone: Reason for referral (narrative)No reason for referral [facility]: Chief Complaint and Reason for Visit Chief Complaint Admit Date 4 M FU March 12, 2025 2:41 pm G47.10 - Hypersomnia, unspecified April 022024 11:26am Reason for Visit Admit Date Colon cancer screening December 26, 2024 10:44am Hypersomnolence March 12, 2025 2:41 pm Hypertension March 12, 2025 2:41 pm Hypothyroidism March 12, 2025 2:41 pm Obesity (BMI 30-39.9) March 12, 2025 2: 41pm Chief Complaint 3 M FU Reason for Visit Acne Hypertension Chief Complaint 3 M FU 1 m fu Reason for Visit Acne Hypertension Hypertension Hypothyroidism Chief Complaint 3 M FU 2 M FU Reason for Visit Anxiety and depressi on Hypothyroidism Anxiety and depression Irregular menses Vitamin deficiency Hypothyroidism Chief Complaint 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) Reason for Visit Possible exposure to STD Encounter for routine gynecological examination Chief Complaint 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) SCREENING CONGESTION, EAR PAIN, COUGH Reason for Visit Possible exposure to STD Encounter for routine gynecological examination Acute bacterial sinusitis Chief Complaint 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) SCREENING CONGESTION, EAR PAIN, COUGH ACUTE - COUGH, SORE THROAT Reason for Visit Possible exposure to STD Encounter for routine gynecological examination Acute bacterial sinusitis Cough present for greater than 3 weeks Chief Complaint 4 m fu Reason for Visit Acne GERD (gastroesophageal reflux disease) Hypertension Hypothyroidism Multiple allergies Chief Complaint 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) SCREENING CONGESTION, EAR PAIN, COUGH ACUTE - COUGH, SORE THROAT bp/thyroid fu Reason for Visit Possible exposure to STD Encounter for routine gynecological examination Acute bacterial sinusitis Cough present for greater than 3 weeks Cough Anxiety and depression Hypertension Hypothyroidism Chief Complaint Admit Date 3 M FU October 10, 2024 8 :06am Amb Documentation October 22, 2024 1 0:54am Reason for Visit Admit Date Colon cancer screening October 10 8:06am Preventative health care October 10, 025 8:06am Colon cancer screening December 26, 2024 10:44am Chief Complaint Admit Date 4 M FU March 12, 2025 2:41 pm Reason for Visit Admit Date Colon cancer screening December 26, 2024 10:44am Family History No Family History Records Found Relationship Condition Age at Onset Recorded Date/T jovon father Hypertension Unknown Disorder of thyroid Unknown grandfather Malignant neoplasm of lung Unknown grandmother Malignant neoplasm Unknown Relationship Condition Age at Onset Recorded Date/T jovon father Hypertension Unknown Disorder of thyroid Unknown Polyp of colon Unknown grandfather Malignant neoplasm of lung Unknown grandmother Malignant neoplasm Unknown mother Polyp of colon Unknown Advance Directives No Advanced Directives Records Found Advance Directive Response Recorded Date/ Time Living Will No 2024 3:50pm Do you have a Healthcare Power of Automation Machine Builder? No 2024 3:50pm Summary Purpose Additional Source Comments Goals (unrecognized section and content) Goals may be documented in a n alternate sectionGoals may be documented in an alternate sectionGoals may be documented in an alternate sectionGoals may be documented in an alternate sectionGoals may be documented in an alternate sectionGoals may be documented in an alternate sectionGoals may be documented in an alternate sectionGoals may be documented in an alternate section Care Teams (unrecognized sec tion and content) Team Status: Active Member Role Status Dates Dr. Joselyn Alegre DO Family Provider Active Dr. Oliver Junior MD Primary Care Provider Active Team Status: Inactive Member Role Status Dates Dr. Oliver Junior MD Primary Care Provider, [facility]er [facility] Provider Active Baldev Roberto NP, SPIRAL GEAR GENERATOR-C Attending Provider Active Team Status: Inactive Member Role Status Dates Dr. Olievr Junior MD Primary Care Provider Active Baldev Roberto SPIRAL GEAR GENERATOR, SPIRAL GEAR GENERATOR-C Attending Provider, Referring Prov ider Active Team Status: Inactive Member Role Status Dates Dr. Oliver Junior MD Primary Care Provider, Refer ring Provider Active Nighat Machuca SPIRAL GEAR GENERATOR, SPIRAL GEAR GENERATOR-C Attending Provider Active Team Status: Inactive Member Role Status Dates Dr. Oliver Junior MD Primary Care Provider Active Nighat Machuca SPIRAL GEAR GENERATOR, SPIRAL GEAR GENERATOR-C Attending Provider, Referring Provider Active Team Status: Inactive Member Role Status Dates Dr. Oliver Junior MD Primary Care Provider, Refer ring Provider Active Zuleyma Barillas PA, PA Attending Provider Active Team Status: Inactive Member Role Status Dates Dr. Oliver Junior MD Primary Care Provider, Refer ring Provider Active Dr. Cynthia Arellano MD Attending Provider Active Team Status: Inactive Member Role Status Dates Dr. Oliver Junior MD Primary Care Provider Active Dr. Cynthia Arellano MD Attending Provider, Referring Provider Active Team Status: Inactive Member Role Status Dates Dr. Oliver Junior MD Primary Care P roadamder, Attending Provider, Referring Provider Active Team Status: Active Member Role Status Dates Dr. Oliver Junior MD Primary Care Provider Active Team Status: Inactive Member Role Status Dates Dr. Oliver Junior MD Primary Care Provider Active Start: October 10, 2024 End: October 10, 2024 Dr. Oliver Junior MD Attending Provider Active Start: October 10, 2024 End: October 10, 2024 Dr. Oliver Junior MD Referring Provider Active Start: October 10, 2024 End: October 10, 2024 Team Status: Active Member Role Status Dates Dr. Oliver Junior MD Primary Care Provider Active Start: October 22, 2024 Korin Merrill Attending Provider Active Start: Bal chambers 2024 Team Status: Inactive Member Role Status Dates Dr. Oliver Junior MD Primary Care Provider Active Start: November 06, 2024 End: November 06, 2024 BRADFORD Walton Attending Provider Active Start: November 06, 2024 End: November 06, 2024 Santos Adamrovich , SPIRAL GEAR GENERATOR-C Referring Provider Active Start: November 06, 2024 End: November 06, 2024 Team Status: Inactive Member Role Status Dates Dr. Oliver Junior MD Primary Care Provider Active Start: December 26, 2024 End: December 26, 2024 Dr. Oliver Junior MD Referring Provider Active Start: December 26, 2024 End: December 26, 2024 Dr. Jairon Vanegas DO Attending Provider Active Start: December 26, 2024 End: December 26, 2024 Team Status: Active Member Role Status Dates Dr. Oliver Junior MD Primary Care Provider Active Start: December 26, 2024 Dr. Oliver Junior MD Referring Provider Active Start: December 26, 2024 Dr. Jairon Vanegas DO Attending Provider Active Start: December 26, 2024 Dr. Jairon Vanegas DO Other Provider Active St art: December 26, 2024 Team Status: Inactive Member Role Status Dates Dr. Oliver Junior MD Primary Care Provider Active Start: March 12, 2025 End: March 12, 2025 Dr. Oliver Junior MD Attending Provider Active Start: March 12, 2025 End: March 12, 2025 Dr. Oliver Junior MD Referring Provider Active Start: March 12, 2025 End: March 12, 2025 Team Status: Active Member Role Status Dates Dr. Oliver Junior MD Primary Care Provider Active Start: March 12, 2025 Dr. Oliver Junior MD Attending Provider Active Start: March 12, 2025 Dr. Oliver Junior MD Referring Provider Active Start: March 12, 2025 Team Status: Active Member Role/Relationship Status Dates Dr. Oliver Junior MD Primary Care Provider Active Team Status: Inactive Member Role/Relationship Status Dates Dr. Oliver Junior MD Primary Care Provider Active Start: December 26, 2024 End: December 26, 2024 Dr. Oliver Junior MD Referring Provider Active Start: December 26, 2024 End: December 26, 2024 Dr. Jairon Vanegas DO Attending Provider Active Start: December 26, 2024 End: December 26, 2024 Team Status: Active Member Role/Relationship Status Dates Dr. Oliver Junior MD Primary Care Provider Active Start: December 26, 2024 Dr. Oliver Junior MD Referring Provider Active Start: December 26, 2024 Dr. Jairon Vanegas DO Attending Provider Active Start: December 26, 2024 Dr. Jairon Vanegas DO Other Provider Active St art: December 26, 2024 Team Status: Inactive Member Role/Relationship Status Dates Dr. Oliver Junior MD Primary Care Provider Active Start: March 12, 2025 End: March 12, 2025 Dr. Oliver Junior MD Attending Provider Active Start: March 12, 2025 End: March 12, 2025 Dr. Oliver Juinor MD Referring Provider Active Start: March 12, 2025 End: March 12, 2025 Team Status: Inactive Member Role/Relationship Status Dates Dr. Oliver Junior MD Primary Care Provider Active Start: March 12, 2025 End: March 12, 2025 Dr. Oliver Junior MD Attending Provider Active Start: March 12, 2025 End: March 12, 2025 Dr. Oliver Junior MD Referring Provider Active Start: March 12, 2025 End: March 12, 2025 Team Status: Inactive Member Role/Relationship Status Dates Dr. Oliver Junior MD Primary Care Provider Active Start: April 02, 2025 End: April 02, 2025 Dr. Oliver Junior MD Attending Provider Active Start: April 02, 2025 End: April 02, 2025 Dr. Oliver Junior MD Referring Provider Active Start: April 02, 2025 End: April 02, 2025 INFORMATION SOURCE (unrecogn ized section and content) DATE CREATED AUTHOR 04/13/2025 [facility] FOR RECORDS PERTAINING TO PATIENTS WHO ARE OR HAVE BEEN ENROLLED IN A CHEMICAL DEPENDENCY/SUBSTANCEABUSE PROGRAM, SOME INFORMATION MAY BE OMITTED. This clinical summary was aggregated from multiple sources. Caution should be exercised in using it in the provision of clinical care. This summary normalizes information from multiple sources, and as a consequence, information in this document may materially change the coding, format and clinical context of patient data. In addition, data may be omitted in some cases. CLINICAL DECISIONS SHOULD BE BASED ON THE PRIMARY CLINICAL RECORDS. [facility] provides no warranty or guarantee of the accuracy or completeness of information in this document.
[2025-05-09] MEDS: Tetracaine 0.5% Ophthalmic Bottle 1 DRP RIGHT EYE (03:40)
--- NOTE | 2025-05-09 03:59 | ED.RN ---
Pt unable to keep eye open long enough for acuity. Dr. Clay aware.
[2025-05-09 04:01] VITALS: BP 142/74; PULSE 87; RESP 18; TEMP 36.4; O2SAT 99
== END 2025-05-09 04:01 | disposition home or self-care (01) ==
PROVIDERS: Emergency Provider Emergency Medicine; PCP Internal Medicine; Visit Provider Emergency Medicine
DX: H57.11 Ocular pain, right eye (principal); Z87.891 Personal history of nicotine dependence; Z77.098 Contact with and (suspected) exposure to other hazardous, chiefly nonmedicinal, chemicals
CPT/HCPCS: 96360; 99282

== ENCOUNTER → 2025-06-11 | Outpatient (CLI) | payer OTHER, SELFPAY ==
[2025-06-11 15:09] LABS: Hematocrit 38.3 % (37-47); Hemoglobin 12.3 g/dL (12.0-15.0); Immature Granulocytes Count 0.020 X10^3/uL (0.0-0.0); Mean Corp Hgb Conc 32.1 g/dL (32-36); Mean Corpuscular Volume 80.1 fL (81-99); Mean Platelet Vol. 11.4 fl (6.2-12.0); NRBC Flagged by Analyzer 0 % (0-5); Platelet Count 243 K/mm3 (150-450); RBC Distribution Width CV 13.6 % (11.6-14.6); RBC Distribution Width SD 39.5 fl (35.1-43.9); Red Blood Count 4.78 M/mm3 (4.2-5.4); White Blood Count 8.6 K/mm3 (4.4-11.0)
[2025-06-11 15:33] LABS: Ferritin 15 ng/mL (22-378); Iron 125 ug/dL (50-170); Iron Binding Capacity,Unsat 360 ug/dL (228-428)
[2025-06-11 15:44] LABS: Iron Binding Capacity,Total 485 ug/dL (250-450)
== END | disposition home or self-care (01) ==
LOC: BIMLAB 13:54
PROVIDERS: PCP Internal Medicine; Referring Provider Internal Medicine; Visit Provider Internal Medicine
DX: E03.9 Hypothyroidism, unspecified (principal); G25.81 Restless legs syndrome
CPT/HCPCS: 36415; 82728; 83540; 83550; 84443; 85025

== ENCOUNTER → 2025-08-13 | Outpatient (CLI) | payer OTHER, SELFPAY ==
--- NOTE | 2025-08-13 08:00 | BI_ITS ---
EXAM: SCRN MAMM (CAD)W/JUANPABLO BILAT DATE: 08/13/2025 CLINICAL HISTORY: F, Age 44 y/o , SCREEN FOR BREAST CANCER Aunt with breast cancer. TECHNIQUE: Procedure Code: [id number] Modality: MG Procedure: SCRN MAMM (CAD)W/JUANPABLO BILAT COMPARISON: Prior exam(s) dated August 12, 2024.. FINDINGS: TISSUE DENSITY: There are scattered areas of fibroglandular density. Bilateral Breast Mammographic Findings: No significant masses, calcifications or other abnormalities are identified. No suspicious masses, areas of developing architectural distortion, or suspicious calcifications. There has been no significant interval change. BI/SCRN MAMM (CAD)W/JUANPABLO BILAT IMPRESSION: Stable bilateral screening mammogram. OVERALL FINAL ASSESSMENT BI-RADS 1: NEGATIVE. RECOMMENDATION: Routine annual follow-up in 1 Year Additional Recommendation none A letter with findings and recommendations will be mailed to the patient. Reading Location: [place] [id number]
== END | disposition home or self-care (01) ==
LOC: OPBI 08:01
PROVIDERS: PCP Internal Medicine; Referring Provider Nurse Practitioner Women's Health; Visit Provider Nurse Practitioner Women's Health
DX: Z12.31 Encounter for screening mammogram for malignant neoplasm of breast (principal)
CPT/HCPCS: 77063; 77067

== ENCOUNTER → 2025-09-21 | Outpatient (CLI) | payer OTHER, SELFPAY ==
[2025-09-21 11:36] LABS: Ferritin 26 ng/mL (22-378)
== END | disposition home or self-care (01) ==
LOC: LAB 10:20
PROVIDERS: PCP Internal Medicine; Referring Provider Internal Medicine; Visit Provider Internal Medicine
DX: D64.9 Anemia, unspecified (principal); E03.9 Hypothyroidism, unspecified
CPT/HCPCS: 36415; 82728; 84443